=== PATIENT | male | born 1965 | race Caucasian/White ===

== ENCOUNTER 2019-08-13 18:34 | Emergency (ER) | payer MEDICARE, BC ==
--- NOTE | 2019-08-13 20:04 | CR ---
INDICATION: Chest pain TECHNIQUE: Chest radiograph 1 view COMPARISON: None FINDINGS: Mediastinum: The mediastinum is normal in appearance. Moderate cardiomegaly is present. Lung: Mild linear scarring or atelectasis is seen in the right lung base. No sign of pleural effusion seen. No pneumothorax is identified. Bone and Soft tissue: Unremarkable for age. IMPRESSIONS: 1. Mild linear scarring or atelectasis is seen in the right lung base. 2. Moderate cardiomegaly is present. Dictated by Lance Acosta MD @ 08/13/2019 8:02:57 PM Dictated by: Lance Acosta MD @ 08/13/2019 20:03:09 (Electronically Signed)
[2019-08-13 20:19] LABS: CARBON DIOXIDE,CO2 29.2 mmol/L (21.0-32.0); POTASSIUM,K 4.5 mmol/L (3.5-5.1)
--- NOTE | 2019-08-13 21:25 | EDM.PDOC ---
ED HPI GENERAL MEDICAL PROBLEM - General Chief Complaint: Genitourinary Problem Stated Complaint: kidney infection Time Seen by Provider: 08/13/19 21:16 Source of Information: Reports: Patient History Limitations: Reports: No Limitations - History of Present Illness INITIAL COMMENTS - FREE TEXT/NARRATIVE: Patient presents with a history of not feeling well the patient has multiple histories of abdominal pain and renal issues. Patient recently has been on antibiotics for UTI Onset: Today Duration: Day(s):, Getting Worse Location: Reports: Abdomen Severity: Moderate Improves with: Reports: None Worsens with: Reports: None Associated Symptoms: Reports: No Other Symptoms headache Pain Score (Numeric/FACES): 4 - Related Data Allergies Allergy/AdvReac Type Severity Reaction Status Date / Time meperidine [From Demerol] Allergy Hypertensio Verified 08/13/19 18:59 n morphine Allergy Hypertensio Verified 08/13/19 18:59 n Home Meds: Home Meds Alpha Lipoic Acid 600 mg PO DAILY 08/13/19 [History] Aspirin [Ecotrin EC] 81 mg PO DAILY 08/13/19 [History] Carvedilol [Coreg] 25 mg PO BID 08/13/19 [History] Cinacalcet HCl 30 mg PO DAILY 08/13/19 [History] Docusate Sodium 100 mg PO DAILY 08/13/19 [History] Donepezil HCl 10 mg PO DAILY 08/13/19 [History] FLUoxetine HCl [Fluoxetine HCl] 40 mg PO DAILY 08/13/19 [History] Gabapentin [Neurontin] 200 mg PO BEDTIME 08/13/19 [History] Nitrofurantoin Macrocrystal [Nitrofurantoin] 100 mg PO BID 08/13/19 [History] Omeprazole 20 mg PO DAILY 08/13/19 [History] Vit B Cmplx 3/Fa/Vit C/Biotin [Nilda-Anne Rx Tablet] 1 each PO DAILY 08/13/19 [ History] Zolpidem Tartrate 10 mg PO BEDTIME PRN 08/13/19 [History] amLODIPine Besylate [Norvasc] 10 mg PO BEDTIME 08/13/19 [History] atorvaSTATin [Lipitor] 40 mg PO BEDTIME 08/13/19 [History] hydrALAZINE [Apresoline] 25 mg PO TID 08/13/19 [History] rOPINIRole [Requip] 0.5 mg PO BEDTIME 08/13/19 [History] traMADol [Ultram] 50 mg PO BID 08/13/19 [History] Past Medical History Cardiovascular History: Reports: High Cholesterol, Hypertension Other Cardiovascular History: ventricular septal defect Respiratory History: Reports: Bronchitis, Recurrent, Pneumonia, Recurrent Gastrointestinal History: Reports: GERD, Pancreatitis Genitourinary History: Reports: Renal Calculus, Other (See Below) Other Genitourinary History: end stage renal failure Neurological History: Reports: Neuropathy, Diabetic Endocrine/Metabolic History: Reports: Diabetes, Type II Other Endocrine/Metabolic History: insulin dependent - Infectious Disease History Infectious Disease History: Reports: Chicken Pox, Measles - Past Surgical History HEENT Surgical History: Reports: Adenoidectomy, Eye Surgery GI Surgical History: Reports: Cholecystectomy, Colonoscopy, EGD Social & Family History - Family History Family Medical History: Noncontributory - Tobacco Use Smoking Status *Q: Never Smoker - Caffeine Use Caffeine Use: Reports: Energy Drinks, Soda - Recreational Drug Use Recreational Drug Use: No ED ROS GENERAL - Review of Systems Review Of Systems: See Below Constitutional: Reports: Malaise HEENT: Reports: No Symptoms Respiratory: Reports: No Symptoms Cardiovascular: Reports: No Symptoms Endocrine: Reports: No Symptoms GI/Abdominal: Reports: Abdominal Pain (Has history of chronic abdominal pain) : Reports: No Symptoms, Flank Pain. Denies: Discharge, Dysuria Musculoskeletal: Reports: No Symptoms Skin: Reports: No Symptoms Neurological: Reports: No Symptoms Psychiatric: Reports: No Symptoms Hematologic/Lymphatic: Reports: No Symptoms Immunologic: Reports: No Symptoms ED EXAM, GI/ABD - Physical Exam Exam: See Below Text/Narrative:: Exam consist of right flank pain. Patient has no evidence of guarding or rigidity. Exam Limited By: No Limitations General Appearance: Alert, WD/WN, No Apparent Distress Eyes: Bilateral: Normal Appearance Ears: Normal External Exam, Normal Canal, Hearing Grossly Normal, Normal TMs Nose: Normal Inspection Throat/Mouth: Normal Inspection, Normal Lips Head: Atraumatic, Normocephalic Neck: Normal Inspection Respiratory/Chest: No Respiratory Distress, Lungs Clear, No Accessory Muscle Use Cardiovascular: Normal Peripheral Pulses, Regular Rate, Rhythm, No JVD, No Murmur (Male) Exam: Deferred Rectal (Males) Exam: Deferred Back Exam: Normal Inspection Extremities: Normal Inspection, Normal Range of Motion Neurological: Alert, Oriented, CN II-XII Intact, Normal Cognition, Normal Reflexes, No Motor/Sensory Deficits Psychiatric: Normal Affect, Normal Mood Skin Exam: Warm, Dry, Intact, Normal Color, No Rash Course - Vital Signs Text/Narrative:: 54-year-old male was evaluated in emergency room for right flank pain. Patient does not have a urinary tract infection. Patient's labs are normal. Patient is a dialysis patient with a normal potassium. Discharged home to follow with primary care physician Last Recorded V/S: Last Vital Signs Temp 97.8 F 08/13/19 18:59 Pulse 84 08/13/19 18:59 Resp 18 08/13/19 18:59 BP 99/78 08/13/19 18:59 Pulse Ox 97 08/13/19 18:59 - Orders/Labs/Meds Labs: Laboratory Tests 08/13/19 08/13/19 08/13/19 Range/Units 19:38 19:47 19:47 WBC 3.24 L (4.0-11.0) K/uL RBC 2.70 L (4.50-5.90) M/uL Hgb 8.9 L (13.0-17.0) g/dL Hct 27.7 L (38.0-50.0) % MCV 102.6 H (80.0-98.0) fL MCH 33.0 H (27.0-32.0) pg MCHC 32.1 (31.0-37.0) g/dL RDW Std Deviation 55.4 (28.0-62.0) fl RDW Coeff of Braulio 15 (11.0-15.0) % Plt Count 83 L (150-400) K/uL MPV 9.80 (7.40-12.00) fL Add Manual Diff YES Neutrophils % (Manual) 74 (48.0-80.0) % Lymphocytes % (Manual) 15 L (16.0-40.0) % Monocytes % (Manual) 10 (0.0-15.0) % Eosinophils % (Manual) 1 (0.0-7.0) % Nucleated RBC % 0.0 /100WBC Absolute Seg Neuts 2.4 (1.4-5.7) Lymphocytes # (Manual) 0.5 L (0.6-2.4) Monocytes # (Manual) 0.3 (0.0-0.8) Eosinophils # (Manual) 0.0 (0.0-0.7) Nucleated RBCs # 0 K/uL Sodium 136 (136-148) mmol/L Potassium 4.5 (3.5-5.1) mmol/L Chloride 94 L (98-107) mmol/L Carbon Dioxide 29.2 (21.0-32.0) mmol/L BUN 62 H (7.0-18.0) mg/dL Creatinine 7.3 H (0.8-1.3) mg/dL Est Cr Clr Drug Dosing 12.08 mL/min Estimated GFR (MDRD) 7.9 ml/min Glucose 136 H (74-106) mg/dL Calcium 8.1 L (8.5-10.1) mg/dL Total Bilirubin 1.5 H (0.2-1.0) mg/dL AST 18 (15-37) IU/L ALT 20 (14-63) IU/L Alkaline Phosphatase 114 (46-116) U/L Total Protein 7.2 (6.4-8.2) g/dL Albumin 3.5 (3.4-5.0) g/dL Globulin 3.7 (2.6-4.0) g/dL Albumin/Globulin Ratio 0.9 (0.9-1.6) Urine Color DARK YELLOW Urine Appearance CLOUDY Urine pH 5.0 (5.0-8.0) Ur Specific [place] >= 1.030 (1.001-1.035) Urine Protein 100 H (NEGATIVE) mg/dL Urine Glucose (UA) NEGATIVE (NEGATIVE) mg/dL Urine Ketones TRACE H (NEGATIVE) mg/dL Urine Occult Blood LARGE H (NEGATIVE) Urine Nitrite NEGATIVE (NEGATIVE) Urine Bilirubin MODERATE H (NEGATIVE) Urine Ictotest NEGATIVE Urine Urobilinogen 0.2 (<2.0) EU/dL Ur Leukocyte Esterase MODERATE H (NEGATIVE) Departure - Departure Time of Disposition: 21:24 Disposition: Home, Self-Care 01 Clinical Impression: Abdominal pain - Discharge Information Instructions: Abdominal Pain, Adult Referrals: Vincent Carcamo MD [Primary Care Provider] - Forms: ED Department Discharge Additional Instructions: The following information is given to patients seen in the emergency department who are being discharged to home. This information is to outline your options for follow-up care. We provide all patients seen in our emergency department with a follow-up referral. The need for follow-up, as well as the timing and circumstances, are variable depending upon the specifics of your emergency department visit. If you don't have a primary care physician on staff, we will provide you with a referral. We always advise you to contact your personal physician following an emergency department visit to inform them of the circumstance of the visit and for follow-up with them and/or the need for any referrals to a consulting specialist. The emergency department will also refer you to a specialist when appropriate. This referral assures that you have the opportunity for follow-up care with a specialist. All of these measure are taken in an effort to provide you with optimal care, which includes your follow-up. Under all circumstances we always encourage you to contact your private physician who remains a resource for coordinating your care. When calling for follow-up care, please make the office aware that this follow-up is from your recent emergency room visit. If for any reason you are refused follow-up, please contact the [facility] Emergency Department at and asked to speak to the emergency department charge nurse. [facility] [address] [place] [address] [address] Care Plan Goals: He is to follow-up with his primary care physician. Patient to take current medication as prescribed Sepsis Event Note - Evaluation Sepsis Screening Result: No Definite Risk - Focused Exam Vital Signs: Vital Signs Temp Pulse Resp BP Pulse Ox 08/13/19 18:59 97.8 F 84 18 99/78 97 Date Exam was Performed: 08/13/19 Time Exam was Performed: 21:20
== END 2019-08-13 21:30 | disposition home or self-care (01) ==
LOC: MW.ED 18:34
DX: R10.9 Unspecified abdominal pain (principal); I12.0 Hypertensive chronic kidney disease with stage 5 chronic kidney disease or end stage renal disease; E11.22 Type 2 diabetes mellitus with diabetic chronic kidney disease; N18.6 End stage renal disease; E78.00 Pure hypercholesterolemia, unspecified; K21.9 Gastro-esophageal reflux disease without esophagitis; E11.40 Type 2 diabetes mellitus with diabetic neuropathy, unspecified; Z90.49 Acquired absence of other specified parts of digestive tract; Z79.82 Long term (current) use of aspirin; Z79.899 Other long term (current) drug therapy; Z88.5 Allergy status to narcotic agent; Z88.8 Allergy status to other drugs, medicaments and biological substances
CPT/HCPCS: 36415; 71045; 71045-26; 80053; 81003; 85025; 99283; 99284

== ENCOUNTER 2019-08-26 10:31 | Observation (INO) | payer MEDICARE, BC ==
[2019-08-26] MEDS ORDERED: Sodium Chloride 0.9% 10 ML Syringe FLUSH PRN (10:33)
[2019-08-26] MEDS ORDERED: Sodium Chloride 0.9% 2.5 ML Syringe FLUSH PRN (10:33)
[2019-08-26] MEDS ORDERED: Aspirin 81 MG Tab.Chew PO ONE (10:43)
[2019-08-26] MEDS: Nitroglycerin 0.4 MG Tab.SL SL PRN ×2 (10:56→11:01)
--- NOTE | 2019-08-26 10:57 | EDM.PDOC ---
ED HPI GENERAL MEDICAL PROBLEM - General Chief Complaint: Chest Pain Stated Complaint: CHEST PAIN AND VOMITTING Time Seen by Provider: 08/26/19 10:33 Source of Information: Reports: Patient History Limitations: Reports: No Limitations - History of Present Illness INITIAL COMMENTS - FREE TEXT/NARRATIVE: HISTORY AND PHYSICAL: History of present illness: Patient is a 54-year-old male who presents to the ED today with concern of chest pain that started when patient was receiving dialysis. Patient states the chest pain is currently a 5 out of 10 but that it was worse during dialysis. Patient states he has a history of diabetes, high blood pressure, high cholesterol, end-stage renal disease, gastroparesis, and chronic pancreatitis. Patient states that he was told he was unable to receive a renal transplant because he also would need a coronary artery bypass but states he has not had a heart attack or chest pain in the past. Patient states the chest pain is in the center of his chest and radiates to his right shoulder and makes him feel nauseous and he did have some episodes of vomiting during dialysis. Patient states he was given Zofran in dialysis and sent over to the ED. Patient states he did have similar pain in the past when he had acute exacerbations of pancreatitis. Patient denies any other symptoms or concerns. Patient states he has not taken any aspirin today. Patient denies fever, chills, shortness of breath, or cough. Denies headache, neck stiff ness, change in vision, syncope, or near syncope. Denies abdominal pain, diarrhea, constipation, or dysuria. Has not noted any blood in urine or stool. Review of systems: As per history of present illness and below otherwise all systems reviewed and negative. Past medical history: As per history of present illness and as reviewed below otherwise noncontributory. Surgical history: As per history of present illness and as reviewed below otherwise noncontributory. Social history: See social history for further information Family history: As per history of present illness and as reviewed below otherwise noncontributory. Physical exam: General: Patient is alert, oriented, and in no acute distress. Patient laying comfortably on exam table. HEENT: Atraumatic, normocephalic, pupils equal and reactive bilaterally, negative for conjunctival pallor or scleral icterus, mucous membranes moist, TMs normal bilaterally, throat clear, neck supple, nontender, trachea midline. No drooling or trismus noted. No meningeal signs. No hot potato voice noted. Lungs: Clear to auscultation, breath sounds equal bilaterally, chest nontender. Heart: S1S2, regular rate and rhythm without overt murmur Abdomen: PEG tube in place without drainage or erythema. Soft, nondistended, nontender. Negative for masses or hepatosplenomegaly. Negative for costovertebral tenderness. Pelvis: Stable nontender. Genitourinary: Deferred. Rectal: Deferred. Skin: Intact, warm, dry. No lesions or rashes noted. Extremities: Atraumatic, negative for cords or calf pain. Neurovascular unremarkable. Neuro: Awake, alert, oriented. Cranial nerves II through XII unremarkable. Cerebellum unremarkable. Motor and sensory unremarkable throughout. Exam nonfocal. Notes: Patient does express resolution of his chest pain after nitro was given. Dr. Gloria consulted on patient and will admit to observation with telemetry. Voices understanding and is agreeable to plan of care. Denies any further questions or concerns at this time. Diagnostics: EKG, CBC, CMP, UA, Trop, Lipase, CXR, BNP Therapeutics: ASA, Nitro x 3 Impression: Chest pain r/o ACS Plan: Admit to observation to Dr. Gloria on telemetry Definitive disposition and diagnosis as appropriate pending reevaluation and review of above. Left Chest Pain Score (Numeric/FACES): 5 - Related Data Allergies Allergy/AdvReac Type Severity Reaction Status Date / Time meperidine [From Demerol] Allergy Hypertensio Verified 08/13/19 18:59 n morphine Allergy Hypertensio Verified 08/13/19 18:59 n Home Meds: Home Meds Alpha Lipoic Acid 600 mg PO DAILY 08/13/19 [History] Aspirin [Ecotrin EC] 81 mg PO DAILY 08/13/19 [History] Carvedilol [Coreg] 25 mg PO BID 08/13/19 [History] Cinacalcet HCl 30 mg PO DAILY 08/13/19 [History] Docusate Sodium 100 mg PO DAILY 08/13/19 [History] Donepezil HCl 10 mg PO DAILY 08/13/19 [History] FLUoxetine HCl [Fluoxetine HCl] 40 mg PO DAILY 08/13/19 [History] Gabapentin [Neurontin] 200 mg PO BEDTIME 08/13/19 [History] Nitrofurantoin Macrocrystal [Nitrofurantoin] 100 mg PO BID 08/13/19 [History] Omeprazole 20 mg PO DAILY 08/13/19 [History] Vit B Cmplx 3/Fa/Vit C/Biotin [Nilda-Anne Rx Tablet] 1 each PO DAILY 08/13/19 [ History] Zolpidem Tartrate 10 mg PO BEDTIME PRN 08/13/19 [History] amLODIPine Besylate [Norvasc] 10 mg PO BEDTIME 08/13/19 [History] atorvaSTATin [Lipitor] 40 mg PO BEDTIME 08/13/19 [History] hydrALAZINE [Apresoline] 25 mg PO TID 08/13/19 [History] rOPINIRole [Requip] 0.5 mg PO BEDTIME 08/13/19 [History] traMADol [Ultram] 50 mg PO BID 08/13/19 [History] Past Medical History Cardiovascular History: Reports: High Cholesterol, Hypertension Other Cardiovascular History: ventricular septal defect Respiratory History: Reports: Bronchitis, Recurrent, Pneumonia, Recurrent Gastrointestinal History: Reports: GERD, Pancreatitis Genitourinary History: Reports: Renal Calculus, Other (See Below) Other Genitourinary History: end stage renal failure Neurological History: Reports: Neuropathy, Diabetic Endocrine/Metabolic History: Reports: Diabetes, Type II Other Endocrine/Metabolic History: insulin dependent - Infectious Disease History Infectious Disease History: Reports: Chicken Pox, Measles - Past Surgical History HEENT Surgical History: Reports: Adenoidectomy, Eye Surgery GI Surgical History: Reports: Cholecystectomy, Colonoscopy, EGD Social & Family History - Family History Family Medical History: Noncontributory - Tobacco Use Smoking Status *Q: Never Smoker Second Hand Smoke Exposure: No - Caffeine Use Caffeine Use: Reports: Coffee - Recreational Drug Use Recreational Drug Use: No ED ROS GENERAL - Review of Systems Review Of Systems: Comprehensive ROS is negative, except as noted in HPI. ED EXAM, GENERAL - Physical Exam Exam: See Below (see dictation) Course - Vital Signs Last Recorded V/S: Last Vital Signs Temp 97.3 F 08/26/19 10:42 Pulse 84 08/26/19 11:10 Resp 18 08/26/19 11:10 BP 145/76 H 08/26/19 11:10 Pulse Ox 100 08/26/19 11:10 - Orders/Labs/Meds Orders: Active Orders 24 hr Category Date Time Status Admission Status [Patient Status] [ADT] Stat ADT 08/26/19 11:41 Ordered EKG Documentation Completion [RC] STAT Care 08/26/19 10:33 Active B-TYPE NATRIURETIC PEPTIDE,BNP [CHEM] Stat Lab 08/26/19 10:45 Received UA RFX MATTHEW AND CULT IF INDIC [URIN] Stat Lab 08/26/19 10:33 Ordered Nitroglycerin [Nitrostat] Med 08/26/19 10:44 Active 0.4 mg SL Q5M PRN Sodium Chloride 0.9% [Saline Flush] Med 08/26/19 10:33 Active 10 ml FLUSH ASDIRECTED PRN Sodium Chloride 0.9% [Saline Flush] Med 08/26/19 10:33 Active 2.5 ml FLUSH ASDIRECTED PRN Saline Lock Insert [OM.PC] Stat Oth 08/26/19 10:33 Ordered Medication Orders Nitroglycerin (Nitrostat) 0.4 mg SL Q5M PRN PRN Reason: Chest Pain Last Admin: 08/26/19 11:01 Dose: 0.4 mg Admin: 08/26/19 10:56 Dose: 0.4 mg Sodium Chloride (Saline Flush) 10 ml FLUSH ASDIRECTED PRN PRN Reason: Keep Vein Open Last Admin: 08/26/19 10:58 Dose: 10 ml Sodium Chloride (Saline Flush) 2.5 ml FLUSH ASDIRECTED PRN PRN Reason: Keep Vein Open Last Admin: 08/26/19 10:58 Dose: 2.5 ml Labs: Laboratory Tests 08/26/19 08/26/19 Range/Units 10:45 10:45 WBC 2.20 L (4.0-11.0) K/uL RBC 2.96 L (4.50-5.90) M/uL Hgb 9.7 L (13.0-17.0) g/dL Hct 30.9 L (38.0-50.0) % MCV 104.4 H (80.0-98.0) fL MCH 32.8 H (27.0-32.0) pg MCHC 31.4 (31.0-37.0) g/dL RDW Std Deviation 58.6 (28.0-62.0) fl RDW Coeff of Braulio 16 H (11.0-15.0) % Plt Count 106 L (150-400) K/uL MPV 10.10 (7.40-12.00) fL Neut % (Auto) 75.0 (48.0-80.0) % Lymph % (Auto) 14.1 L (16.0-40.0) % Garrett % (Auto) 9.5 (0.0-15.0) % Eos % (Auto) 1.4 (0.0-7.0) % Baso % (Auto) 0.0 (0.0-1.5) % Neut # (Auto) 1.7 (1.4-5.7) K/uL Lymph # (Auto) 0.3 L (0.6-2.4) K/uL Garrett # (Auto) 0.2 (0.0-0.8) K/uL Eos # (Auto) 0.0 (0.0-0.7) K/uL Baso # (Auto) 0.0 (0.0-0.1) K/uL Nucleated RBC % 0.0 /100WBC Nucleated RBCs # 0 K/uL Sodium 139 (136-148) mmol/L Potassium 3.6 (3.5-5.1) mmol/L Chloride 96 L (98-107) mmol/L Carbon Dioxide 30.9 (21.0-32.0) mmol/L BUN 18 (7.0-18.0) mg/dL Creatinine 3.7 H (0.8-1.3) mg/dL Est Cr Clr Drug Dosing 23.84 mL/min Estimated GFR (MDRD) 17.3 ml/min Glucose 224 H (74-106) mg/dL Calcium 9.1 (8.5-10.1) mg/dL Total Bilirubin 1.4 H (0.2-1.0) mg/dL AST 22 (15-37) IU/L ALT 23 (14-63) IU/L Alkaline Phosphatase 133 H (46-116) U/L Troponin I < 0.050 (0.000-0.056) ng/mL Total Protein 7.3 (6.4-8.2) g/dL Albumin 3.7 (3.4-5.0) g/dL Globulin 3.6 (2.6-4.0) g/dL Albumin/Globulin Ratio 1.0 (0.9-1.6) Lipase 116 (73-393) U/L Meds: Medications Generic Name Dose Route Start Last Admin Trade Name Freakin PRN Reason Stop Dose Admin Nitroglycerin 0.4 mg 08/26/19 10:44 08/26/19 11:01 Nitrostat SL 0.4 mg Q5M PRN Administration Chest Pain Sodium Chloride 10 ml 08/26/19 10:33 08/26/19 10:58 Saline Flush FLUSH 10 ml ASDIRECTED PRN Administration Keep Vein Open Sodium Chloride 2.5 ml 08/26/19 10:33 08/26/19 10:58 Saline Flush FLUSH 2.5 ml ASDIRECTED PRN Administration Keep Vein Open Discontinued Medications Generic Name Dose Route Start Last Admin Trade Name Lacy PRN Reason Stop Dose Admin Aspirin 324 mg 08/26/19 10:43 08/26/19 10:56 Aspirin PO 08/26/19 10:44 324 mg ONETIME ONE Administration Departure - Departure Time of Disposition: 11:44 Disposition: Refer to Observation Clinical Impression: Chest pain Qualifiers: Chest pain type: unspecified Qualified Code(s): R07.9 - Chest pain, unspecified - Discharge Information Referrals: PCP,None [Primary Care Provider] - Forms: ED Department Discharge Sepsis Event Note - Evaluation Sepsis Screening Result: No Definite Risk - Focused Exam Vital Signs: Vital Signs Temp Pulse Resp BP BP Pulse Ox 08/26/19 11:10 84 18 145/76 H 100 08/26/19 11:01 143/76 H 08/26/19 10:57 176/95 H 08/26/19 10:42 97.3 F 87 20 174/95 H 100 Date Exam was Performed: 08/26/19 Time Exam was Performed: 11:42 - My Orders Last 24 Hours: My Active Orders 08/26/19 10:33 EKG Documentation Completion [RC] STAT UA RFX MATTHEW AND CULT IF INDIC [URIN] Stat Sodium Chloride 0.9% [Saline Flush] 10 ml FLUSH ASDIRECTED PRN Sodium Chloride 0.9% [Saline Flush] 2.5 ml FLUSH ASDIRECTED PRN Saline Lock Insert [OM.PC] Stat 08/26/19 10:44 Nitroglycerin [Nitrostat] 0.4 mg SL Q5M PRN 08/26/19 10:45 B-TYPE NATRIURETIC PEPTIDE,BNP [CHEM] Stat 08/26/19 11:41 Admission Status [Patient Status] [ADT] Stat - Assessment/Plan Last 24 Hours: My Active Orders 08/26/19 10:33 EKG Documentation Completion [RC] STAT UA RFX MATTHEW AND CULT IF INDIC [URIN] Stat Sodium Chloride 0.9% [Saline Flush] 10 ml FLUSH ASDIRECTED PRN Sodium Chloride 0.9% [Saline Flush] 2.5 ml FLUSH ASDIRECTED PRN Saline Lock Insert [OM.PC] Stat 08/26/19 10:44 Nitroglycerin [Nitrostat] 0.4 mg SL Q5M PRN 08/26/19 10:45 B-TYPE NATRIURETIC PEPTIDE,BNP [CHEM] Stat 08/26/19 11:41 Admission Status [Patient Status] [ADT] Stat
--- NOTE | 2019-08-26 11:13 | CR ---
Chest: Portable view of the chest was obtained. Comparison: No prior chest imaging is available. Heart is enlarged. Linear atelectasis or scarring is seen within the right lung base. Lungs otherwise are clear with no acute parenchymal change. Bony structures are grossly intact. Impression: 1. Cardiomegaly. 2. Atelectasis or scarring within the right lung base. 3. Nothing acute is otherwise seen. Diagnostic code #2 This report was dictated in MDT
[2019-08-26 11:24] LABS: BLOOD UREA NITROGEN,BUN 18 mg/dL (7.0-18.0); CARBON DIOXIDE,CO2 30.9 mmol/L (21.0-32.0); CHLORIDE,CL 96 mmol/L (98-107); GLUCOSE RANDOM 224 mg/dL (74-106); LIPASE 116 U/L (73-393); POTASSIUM,K 3.6 mmol/L (3.5-5.1); SODIUM,NA 139 mmol/L (136-148)
--- NOTE | 2019-08-26 13:05 | PCM.HP.2 ---
H&P History of Present Illness - General Date of Service: 08/26/19 Admit Problem/Dx: Admission Diagnosis/Problem Admission Diagnosis/Problem Chest pain Source of Information: Patient History Limitations: Reports: No Limitations - History of Present Illness Initial Comments - Free Text/Narative: This 54 year old male with significant pmh of ESRD on HD, DM type 2, severe gastroparesis with jejunostomy tube, chronic pancreatitis, pancytopenia, CAD and ventricular septal defect presented to the ED from dialysis with complaints of chest pain. He reports he was started on dialysis this morning, he felt some R shoulder pain which went into his chest all over. he felt chilled and then nauseated. They gave him Zofran which helped, and then he slept for about 30 minutes and then woke up with extreme nausea and vomited. He vomited a total of 3 times. He reports he eats approximately 400-500 calories orally daily and the rest through J tube due to severe gastroparesis. He denies this feels like his pancreatitis pain. He reports his J tube has been draining excessively the last week or so, like acidic fluid and thinks it might need to be replaced. He reports BMs and flatus. He was recently treated with abx for UTI, voided very little, which is his normal. He denies overt abdominal pain. No chest pain currently, just normal aches and pains. He is tired from dialysis today and just wants to rest. He denies fevers or cough at home. No headache or shortness of breath. No focal neurologic deficits. No smoking or tobacco use, no alcohol or recreational drug use. He was evaluated for renal transplant, but was denied as he needs CABG for CAD, but they felt even after that he might not be a good candidate for transplant. Next HD is Thursday. In the ED pancytopenia is noted, which is at baseline. Na 139, K+ 3.6, BUN 18 and Cr 3.7. CXR reveals cardiomegaly, no acute cardiopulmonary process. EKG SR with LBBB, no ST elevation. Troponin negative. He was given Nitro x 2 and pain subsided. ED recommended admission for chest pain rule out ACS. PCP, Dr Carcamo. Left Chest Pain Score (Numeric/FACES): 5 - Related Data Allergies/Adverse Reactions: Allergies Allergy/AdvReac Type Severity Reaction Status Date / Time meperidine [From Demerol] Allergy Hypertensio Verified 08/26/19 12:56 n morphine Allergy Hypertensio Verified 08/26/19 12:56 n Home Medications: Home Meds Carvedilol [Coreg] 25 mg PO BID 08/13/19 [History] Docusate Sodium 100 mg PO BID 08/13/19 [History] Donepezil HCl 10 mg PO DAILY 08/13/19 [History] FLUoxetine HCl [Fluoxetine HCl] 40 mg PO DAILY 08/13/19 [History] Gabapentin [Neurontin] 200 mg PO DAILY 08/13/19 [History] Vit B Cmplx 3/Fa/Vit C/Biotin [Nilda-Anne Rx Tablet] 1 each PO DAILY 08/13/19 [ History] Zolpidem Tartrate 10 mg PO BEDTIME PRN 08/13/19 [History] amLODIPine Besylate [Norvasc] 10 mg PO DAILY 08/13/19 [History] atorvaSTATin [Lipitor] 40 mg PO BEDTIME 08/13/19 [History] hydrALAZINE [Apresoline] 25 mg PO TID 08/13/19 [History] rOPINIRole [Requip] 0.5 mg PO DAILY 08/13/19 [History] traMADol [Ultram] 50 - 100 mg PO TID PRN 08/13/19 [History] Acetaminophen [Tylenol] 325 mg PO ASDIRECTED PRN MDD THREE TIMES A WEEK [History] Calcium Carbonate [Tums] 1,500 mg PO BID 08/26/19 [History] Cinacalcet [Sensipar] 30 mg PO DAILY 08/26/19 [History] Darbepoetin Chema [Aranesp] 100 mcg IV ASDIRECTED MDD EACH Thursday08/26/19 [ History] Esomeprazole Magnesium [Nexium] 20 mg PO DAILY 08/26/19 [History] Furosemide [Lasix] 80 mg PO BID 08/26/19 [History] Insulin NPH Human Isophane [Novolin N Flexpen] 50 unit SQ BID 08/26/19 [History] Insulin Regular, Human [Novolin R Flexpen] 15 unit SQ DAILY PRN 08/26/19 [ History] Meclizine [Antivert] 25 mg PO BID 08/26/19 [History] Nitroglycerin 0.4 mg SL ASDIRECTED PRN 08/26/19 [History] Ondansetron [Zofran] 4 mg IV ASDIRECTED PRN MDD THREE TIMES A WEEK 08/26/19 [ History] Sevelamer Carbonate [Renvela] 800 mg PO TID 08/26/19 [History] paricalcitoL [Paricalcitol] 6 mcg IV ASDIRECTED MDD THREE TIMES A WEEK 08/26/19 [History] Past Medical History Cardiovascular History: Reports: CAD, Congenital Septal Defect (ventricular septal defect), High Cholesterol, Hypertension, Other (See Below) (Cardiomegaly) . Denies: Afib, [place], Stents Respiratory History: Reports: Bronchitis, Recurrent, Pneumonia, Recurrent Gastrointestinal History: Reports: GERD, Pancreatitis, Other (See Below) ( gastroparesis) Genitourinary History: Reports: Renal Calculus, Other (See Below) Other Genitourinary History: end stage renal failure on HD Musculoskeletal History: Reports: Arthritis Neurological History: Reports: Migraines, Neuropathy, Diabetic, Other (See Below ) Other Neuro History: mild cognitive impairment, vascular dementia, restless leg syndrome Psychiatric History: Reports: Anxiety, Depression Endocrine/Metabolic History: Reports: Diabetes, Type II Other Endocrine/Metabolic History: insulin dependent - Infectious Disease History Infectious Disease History: Reports: Chicken Pox, Measles - Past Surgical History HEENT Surgical History: Reports: Adenoidectomy, Eye Surgery GI Surgical History: Reports: Cholecystectomy, Colonoscopy, EGD Social & Family History - Family History Family Medical History: Noncontributory - Tobacco Use Smoking Status *Q: Never Smoker Second Hand Smoke Exposure: No - Caffeine Use Caffeine Use: Reports: Coffee - Alcohol Use Alcohol Use History: No - Recreational Drug Use Recreational Drug Use: No - Living Situation & Occupation Living situation: Reports: Occupation: Disabled H&P Review of Systems - Review of Systems: Review Of Systems: See Below General: Reports: No Symptoms. Denies: Fever, Chills, Malaise Pulmonary: Reports: No Symptoms. Denies: Shortness of Breath Cardiovascular: Reports: No Symptoms. Denies: Chest Pain Gastrointestinal: Reports: Abdominal Pain, Nausea. Denies: Black Stool, Bloody Stool, Vomiting Genitourinary: Reports: No Symptoms. Denies: Dysuria, Frequency, Burning Musculoskeletal: Reports: No Symptoms Skin: Reports: Erythema (around J tube due to drainage) Psychiatric: Reports: No Symptoms Neurological: Reports: No Symptoms Hematologic/Lymphatic: Reports: No Symptoms Immunologic: Reports: No Symptoms Exam - Exam Exam: See Below - Vital Signs Vital Signs: Last Vital Signs Temp 97.3 F 08/26/19 10:42 Pulse 84 08/26/19 11:55 Resp 18 08/26/19 11:55 BP 167/83 H 08/26/19 11:55 Pulse Ox 99 08/26/19 11:55 Weight: 98 kg - Exam General: Alert, Oriented, Cooperative Neck: Supple Lungs: Clear to Auscultation, Normal Respiratory Effort Cardiovascular: Regular Rate, Regular Rhythm, Other (fistula to FAISAL arm) GI/Abdominal Exam: Normal Bowel Sounds, Soft, Non-Tender, Other (J tube LLQ, with mild irritated skin surrounding.) Extremities: Normal Inspection, Normal Range of Motion, Non-Tender, No Pedal Edema Neuro Extensive - Mental Status: Alert, Oriented x3 Neuro Extensive - Motor, Sensory, Reflexes: CN II-XII Intact Psychiatric: Alert, Normal Affect, Normal Mood - Patient Data Lab Results Last 24 hrs: Laboratory Results - last 24 hr 08/26/19 08/26/19 08/26/19 Range/Units 10:45 10:45 10:45 WBC 2.20 L (4.0-11.0) K/uL RBC 2.96 L (4.50-5.90) M/uL Hgb 9.7 L (13.0-17.0) g/dL Hct 30.9 L (38.0-50.0) % MCV 104.4 H (80.0-98.0) fL MCH 32.8 H (27.0-32.0) pg MCHC 31.4 (31.0-37.0) g/dL RDW Std Deviation 58.6 (28.0-62.0) fl RDW Coeff of Braulio 16 H (11.0-15.0) % Plt Count 106 L (150-400) K/uL MPV 10.10 (7.40-12.00) fL Neut % (Auto) 75.0 (48.0-80.0) % Lymph % (Auto) 14.1 L (16.0-40.0) % [place] % (Auto) 9.5 (0.0-15.0) % Eos % (Auto) 1.4 (0.0-7.0) % Baso % (Auto) 0.0 (0.0-1.5) % Neut # (Auto) 1.7 (1.4-5.7) K/uL Lymph # (Auto) 0.3 L (0.6-2.4) K/uL [place] # (Auto) 0.2 (0.0-0.8) K/uL Eos # (Auto) 0.0 (0.0-0.7) K/uL Baso # (Auto) 0.0 (0.0-0.1) K/uL Nucleated RBC % 0.0 /100WBC Nucleated RBCs # 0 K/uL Sodium 139 (136-148) mmol/L Potassium 3.6 (3.5-5.1) mmol/L Chloride 96 L (98-107) mmol/L Carbon Dioxide 30.9 (21.0-32.0) mmol/L BUN 18 (7.0-18.0) mg/dL Creatinine 3.7 H (0.8-1.3) mg/dL Est Cr Clr Drug Dosing 23.84 mL/min Estimated GFR (MDRD) 17.3 ml/min Glucose 224 H (74-106) mg/dL Calcium 9.1 (8.5-10.1) mg/dL Total Bilirubin 1.4 H (0.2-1.0) mg/dL AST 22 (15-37) IU/L ALT 23 (14-63) IU/L Alkaline Phosphatase 133 H (46-116) U/L Troponin I < 0.050 (0.000-0.056) ng/mL B-Natriuretic Peptide 1485 H (<100) PG/ML Total Protein 7.3 (6.4-8.2) g/dL Albumin 3.7 (3.4-5.0) g/dL Globulin 3.6 (2.6-4.0) g/dL Albumin/Globulin Ratio 1.0 (0.9-1.6) Lipase 116 (73-393) U/L Result Diagrams: 08/26/19 10:45 08/26/19 10:45 EKG INTERPRETATION EKG Date: 08/26/19 Rhythm: NSR P-Wave: Present QRS: Normal ST-T: Normal QT: Normal Sepsis Event Note - Evaluation Sepsis Screening Result: No Definite Risk - Focused Exam Vital Signs: Vital Signs Temp Pulse Resp BP BP Pulse Ox 08/26/19 11:55 84 18 167/83 H 99 08/26/19 11:30 85 18 147/64 H 98 08/26/19 11:10 84 18 145/76 H 100 08/26/19 11:01 143/76 H 08/26/19 10:57 176/95 H 08/26/19 10:42 97.3 F 87 20 174/95 H 100 Date Exam was Performed: 08/26/19 Time Exam was Performed: 14:50 - Problem List (1) Chest pain SNOMED Code(s): 73924624 ICD Code: R07.9 - CHEST PAIN, UNSPECIFIED Status: Acute Current Visit: Yes Qualifiers: Chest pain type: unspecified Qualified Code(s): R07.9 - Chest pain, unspecified (2) Abdominal pain SNOMED Code(s): 57888564 ICD Code: R10.9 - UNSPECIFIED ABDOMINAL PAIN Status: Acute Current Visit : No (3) Nausea SNOMED Code(s): 567942689 ICD Code: R11.0 - NAUSEA Status: Acute Current Visit: Yes (4) HTN (hypertension) SNOMED Code(s): 45634047 ICD Code: I10 - ESSENTIAL (PRIMARY) HYPERTENSION Status: Chronic Current Visit: Yes (5) Gastroparesis due to secondary diabetes SNOMED Code(s): 9526383, 565546172 ICD Code: E13.43 - OTH DIABETES MELLITUS W DIABETIC AUTONOMIC (POLY) NEUROPATHY Status: Chronic Current Visit: Yes (6) Jejunostomy tube in situ SNOMED Code(s): 030177542, 245046269 ICD Code: Z93.4 - OTHER ARTIFICIAL OPENINGS OF GASTROINTESTINAL TRACT STATUS Status: Chronic Current Visit: Yes (7) HLD (hyperlipidemia) SNOMED Code(s): 16893354 ICD Code: E78.5 - HYPERLIPIDEMIA, UNSPECIFIED Status: Chronic Current Visit: Yes (8) Pancytopenia SNOMED Code(s): 757555595 ICD Code: D61.818 - OTHER PANCYTOPENIA Status: Chronic Current Visit: Yes (9) CAD (coronary artery disease) SNOMED Code(s): 80539215 ICD Code: I25.10 - ATHSCL HEART DISEASE OF [place] CORONARY ARTERY W/O ANG PCTRS Status: Chronic Current Visit: Yes (10) GERD (gastroesophageal reflux disease) SNOMED Code(s): 424250075 ICD Code: K21.9 - GASTRO-ESOPHAGEAL REFLUX DISEASE WITHOUT ESOPHAGITIS Status: Chronic Current Visit: Yes (11) ESRD on hemodialysis SNOMED Code(s): 121110148 ICD Code: N18.6 - END STAGE RENAL DISEASE; Z99.2 - DEPENDENCE ON RENAL DIALYSIS Status: Chronic Current Visit: Yes (12) Mild cognitive impairment SNOMED Code(s): 178601680 ICD Code: G31.84 - MILD COGNITIVE IMPAIRMENT, SO STATED Status: Chronic Current Visit: Yes (13) Vascular dementia SNOMED Code(s): 846501404 ICD Code: F01.50 - VASCULAR DEMENTIA WITHOUT BEHAVIORAL DISTURBANCE Status : Chronic Current Visit: Yes (14) Chronic pancreatitis SNOMED Code(s): 151852132 ICD Code: K86.1 - OTHER CHRONIC PANCREATITIS Status: Chronic Current Visit: Yes Qualifiers: Pancreatitis type: biliary Qualified Code(s): K86.1 - Other chronic pancreatitis Problem List Initiated/Reviewed/Updated: Yes Orders Last 24hrs: Active Orders 24 hr Category Date Time Status Admission Status [Patient Status] [ADT] Stat ADT 08/26/19 11:41 Active EKG Documentation Completion [RC] STAT Care 08/26/19 10:33 Active UA RFX MATTHEW AND CULT IF INDIC [URIN] Stat Lab 08/26/19 10:33 Ordered Nitroglycerin [Nitrostat] Med 08/26/19 10:44 Active 0.4 mg SL Q5M PRN Sodium Chloride 0.9% [Saline Flush] Med 08/26/19 10:33 Active 10 ml FLUSH ASDIRECTED PRN Sodium Chloride 0.9% [Saline Flush] Med 08/26/19 10:33 Active 2.5 ml FLUSH ASDIRECTED PRN Saline Lock Insert [OM.PC] Stat Oth 08/26/19 10:33 Ordered Medication Orders Nitroglycerin (Nitrostat) 0.4 mg SL Q5M PRN PRN Reason: Chest Pain Last Admin: 08/26/19 11:01 Dose: 0.4 mg Admin: 08/26/19 10:56 Dose: 0.4 mg Sodium Chloride (Saline Flush) 10 ml FLUSH ASDIRECTED PRN PRN Reason: Keep Vein Open Last Admin: 08/26/19 10:58 Dose: 10 ml Sodium Chloride (Saline Flush) 2.5 ml FLUSH ASDIRECTED PRN PRN Reason: Keep Vein Open Last Admin: 08/26/19 10:58 Dose: 2.5 ml Assessment/Plan Comment:: This 54 year old male admitted with chest pain and nausea 1. Chest pain: - Monitor on Telemetry - Trend Troponins q6h x 2 2. Nausea - Protonix 40 mg IV - NPO for now - Zofran - Abd xray to rule out obstruction - Consider exacerbation of gastroparesis. 3. DM Type 2 - Monitor BS TID AC - Continue Insulin, monitor close with enteral feedings cut back 4. Gastroparesis/j tube - Half enteral feedings for tonight due to nausea and possible exacerbation for exacerbation. Monitor. - Consult [employer] to assist with tube feedings. 5. Chronic medical conditions: HTN, HLD, chronic pancreatitis, ESRD - Continue home medications. - monitor fluid status VTE prophylaxis: SCDs, pancytopenia noted, no pharmacologic management now Dispo: In am if improvement. - Mortality Measure Prognosis:: Good
[2019-08-26] MEDS ORDERED: Ondansetron 4 MG/2 ML SDV IVPUSH PRN (13:06)
[2019-08-26] MEDS: Pantoprazole 40 MG in Sodium Chloride 0.9% 10 ML IV SCH (13:36)
--- NOTE | 2019-08-26 14:10 | CR ---
Abdomen: Supine and upright views of the abdomen were obtained. Embolization coils are seen within the left upper abdomen. Surgical clips are seen within the upper right abdomen. Bowel gas pattern appears normal. No free air is seen. Bony structures appear within normal limits for the patient's age. Areas of atelectasis and probable scarring are seen within both lung bases. More focal area of density is seen within the left retrocardiac region and difficult to exclude small area of focal bronchitis or pneumonia. Impression: 1. Focal density within the left retrocardiac region is noted. Difficult to exclude focal bronchitis or pneumonia. 2. Other findings as noted above. Nothing acute is is otherwise appreciated. Diagnostic code #3 Study was dictated in MDT
[2019-08-26] MEDS ORDERED: Acetaminophen 325 MG Tab PO PRN (14:26)
[2019-08-26] MEDS ORDERED: traMADol 50 MG Tab PO PRN (14:26)
[2019-08-26] MEDS ORDERED: Zolpidem Tartrate 10 MG PO PRN (14:26)
[2019-08-26] MEDS ORDERED: Heparin Sodium 5,000 Units/ML Vial IVPUSH ONE (18:15)
[2019-08-26] MEDS ORDERED: Heparin Sod,Pork In 0.45% Nacl 25,000 UNIT/500 ML IV.SOLN IV SCH ×2 (18:30→19:45)
[2019-08-26] MEDS: Heparin Sod,Pork In 0.45% Nacl 25,000 UNIT/500 ML IV.SOLN IV SCH (20:03)
[2019-08-26] MEDS ORDERED: Insulin Isophane NPH, Human 100 Units/ML 10 ML Vial SUBCUT SCH (21:00)
[2019-08-26] MEDS: Carvedilol 25 MG Tab PO SCH (21:20)
[2019-08-26] MEDS: hydrALAZINE 25 MG Tab PO SCH (21:25)
[2019-08-26] MEDS: Sevelamer Carbonate 800 MG Tab PO SCH (21:25)
[2019-08-26] MEDS: atorvaSTATin 40 MG Tab PO SCH (21:26)
[2019-08-26] MEDS: Furosemide 80 MG Tab PO SCH (21:26)
[2019-08-26] MEDS: Calcium Carbonate 500 MG Tab.Chew PO SCH (21:27)
[2019-08-26] MEDS: Meclizine 25 MG Tab PO SCH (21:39)
--- NOTE | 2019-08-26 22:31 | PCM.SN ---
- Free Text/Narrative Note: 2nd Troponin mildly elevated, patient denies any chest pain currently. We will continue to trend cardiac enzymes. Patient has received ASA, Heparin drip has been started.
[2019-08-26] MEDS: Insulin Isophane NPH, Human 100 Units/ML 10 ML Vial SUBCUT SCH (23:30)
[2019-08-26] MEDS: rOPINIRole 0.5 MG Tab PO SCH (23:34)
[2019-08-27] MEDS ORDERED: Heparin Sodium 5,000 Units/ML Vial IVPUSH ONE ×3 (01:04→12:43)
[2019-08-27] MEDS: Sevelamer Carbonate 800 MG Tab PO SCH ×3 (06:33→21:50)
[2019-08-27] MEDS: hydrALAZINE 25 MG Tab PO SCH ×3 (06:34→21:44)
[2019-08-27] MEDS: Insulin Aspart 100 Units/ML 3 ML Pen SUBCUT SCH ×3 (06:37→17:45)
[2019-08-27] MEDS: Meclizine 25 MG Tab PO SCH ×2 (08:58→21:43)
[2019-08-27] MEDS: Gabapentin 100 MG Cap PO SCH (08:58)
[2019-08-27] MEDS: FLUoxetine 20 MG Cap PO SCH (08:58)
[2019-08-27] MEDS ORDERED: rOPINIRole 0.5 MG Tab PO SCH (09:00)
[2019-08-27] MEDS: Carvedilol 25 MG Tab PO SCH ×2 (09:00→21:43)
[2019-08-27] MEDS ORDERED: Insulin Isophane NPH, Human 100 Units/ML 10 ML Vial SUBCUT SCH (09:00)
[2019-08-27] MEDS: amLODIPine 5 MG Tab PO SCH (09:01)
[2019-08-27] MEDS: Furosemide 80 MG Tab PO SCH ×2 (09:01→21:44)
[2019-08-27] MEDS: Donepezil 10 MG Tab PO SCH (09:01)
[2019-08-27] MEDS: Insulin Isophane NPH, Human 100 Units/ML 10 ML Vial SUBCUT SCH ×2 (09:02→21:38)
[2019-08-27] MEDS: Calcium Carbonate 500 MG Tab.Chew PO SCH ×2 (09:02→21:41)
[2019-08-27] MEDS: CINACALCET 30 MG PO SCH (09:03)
[2019-08-27] MEDS: BIOTIN PO SCH (09:04)
[2019-08-27] MEDS: [UNRECOGNIZED DRUG - OTHER] PO SCH (09:04)
[2019-08-27] MEDS: VIT B CMPLX PO SCH (09:04)
--- NOTE | 2019-08-27 09:21 | PCM.PN ---
- General Info Date of Service: 08/27/19 Subjective Update: Reports no chest pain, SOB, nausea or vomiting overnight. - Patient Data Vitals - Most Recent: Last Vital Signs Temp 97.9 F 08/27/19 07:56 Pulse 72 08/27/19 09:00 Resp 16 08/27/19 07:56 BP 148/72 H 08/27/19 09:01 Pulse Ox 95 08/27/19 07:56 Weight - Most Recent: 216 lb 0.848 oz I&O - Last 24 Hours: Intake & Output 08/26/19 08/27/19 08/27/19 22:59 06:59 14:59 Intake Total 0 200 Output Total 50 Balance -50 200 Lab Results Last 24 Hours: Laboratory Results - last 24 hr 08/26/19 08/26/19 08/26/19 Range/Units 10:45 10:45 10:45 WBC 2.20 L (4.0-11.0) K/uL RBC 2.96 L (4.50-5.90) M/uL Hgb 9.7 L (13.0-17.0) g/dL Hct 30.9 L (38.0-50.0) % MCV 104.4 H (80.0-98.0) fL MCH 32.8 H (27.0-32.0) pg MCHC 31.4 (31.0-37.0) g/dL RDW Std Deviation 58.6 (28.0-62.0) fl RDW Coeff of Braulio 16 H (11.0-15.0) % Plt Count 106 L (150-400) K/uL MPV 10.10 (7.40-12.00) fL Neut % (Auto) 75.0 (48.0-80.0) % Lymph % (Auto) 14.1 L (16.0-40.0) % Pine % (Auto) 9.5 (0.0-15.0) % Eos % (Auto) 1.4 (0.0-7.0) % Baso % (Auto) 0.0 (0.0-1.5) % Neut # (Auto) 1.7 (1.4-5.7) K/uL Lymph # (Auto) 0.3 L (0.6-2.4) K/uL Pine # (Auto) 0.2 (0.0-0.8) K/uL Eos # (Auto) 0.0 (0.0-0.7) K/uL Baso # (Auto) 0.0 (0.0-0.1) K/uL Nucleated RBC % 0.0 /100WBC Nucleated RBCs # 0 K/uL APTT (18.6-31.3) SEC Sodium 139 (136-148) mmol/L Potassium 3.6 (3.5-5.1) mmol/L Chloride 96 L (98-107) mmol/L Carbon Dioxide 30.9 (21.0-32.0) mmol/L BUN 18 (7.0-18.0) mg/dL Creatinine 3.7 H (0.8-1.3) mg/dL Est Cr Clr Drug Dosing 23.84 mL/min Estimated GFR (MDRD) 17.3 ml/min Glucose 224 H (74-106) mg/dL POC Glucose (60-110) mg/dL Calcium 9.1 (8.5-10.1) mg/dL Total Bilirubin 1.4 H (0.2-1.0) mg/dL AST 22 (15-37) IU/L ALT 23 (14-63) IU/L Alkaline Phosphatase 133 H (46-116) U/L Troponin I < 0.050 (0.000-0.056) ng/mL B-Natriuretic Peptide 1485 H (<100) PG/ML Total Protein 7.3 (6.4-8.2) g/dL Albumin 3.7 (3.4-5.0) g/dL Globulin 3.6 (2.6-4.0) g/dL Albumin/Globulin Ratio 1.0 (0.9-1.6) Lipase 116 (73-393) U/L Urine Color Urine Appearance Urine pH (5.0-8.0) Ur Specific [place] (1.001-1.035) Urine Protein (NEGATIVE) mg/dL Urine Glucose (UA) (NEGATIVE) mg/dL Urine Ketones (NEGATIVE) mg/dL Urine Occult Blood (NEGATIVE) Urine Nitrite (NEGATIVE) Urine Bilirubin (NEGATIVE) Urine Urobilinogen (<2.0) EU/dL Ur Leukocyte Esterase (NEGATIVE) Urine RBC (0-2/HPF) Urine WBC (0-5/HPF) Ur Epithelial Cells (NONE-FEW) Urine Bacteria (NEGATIVE) 08/26/19 08/26/19 08/26/19 Range/Units 13:20 14:52 16:40 WBC (4.0-11.0) K/uL RBC (4.50-5.90) M/uL Hgb (13.0-17.0) g/dL Hct (38.0-50.0) % MCV (80.0-98.0) fL MCH (27.0-32.0) pg MCHC (31.0-37.0) g/dL RDW Std Deviation (28.0-62.0) fl RDW Coeff of Braulio (11.0-15.0) % Plt Count (150-400) K/uL MPV (7.40-12.00) fL Neut % (Auto) (48.0-80.0) % Lymph % (Auto) (16.0-40.0) % Pine % (Auto) (0.0-15.0) % Eos % (Auto) (0.0-7.0) % Baso % (Auto) (0.0-1.5) % Neut # (Auto) (1.4-5.7) K/uL Lymph # (Auto) (0.6-2.4) K/uL Pine # (Auto) (0.0-0.8) K/uL Eos # (Auto) (0.0-0.7) K/uL Baso # (Auto) (0.0-0.1) K/uL Nucleated RBC % /100WBC Nucleated RBCs # K/uL APTT (18.6-31.3) SEC Sodium (136-148) mmol/L Potassium (3.5-5.1) mmol/L Chloride (98-107) mmol/L Carbon Dioxide (21.0-32.0) mmol/L BUN (7.0-18.0) mg/dL Creatinine (0.8-1.3) mg/dL Est Cr Clr Drug Dosing mL/min Estimated GFR (MDRD) ml/min Glucose (74-106) mg/dL POC Glucose 213 H (60-110) mg/dL Calcium (8.5-10.1) mg/dL Total Bilirubin (0.2-1.0) mg/dL AST (15-37) IU/L ALT (14-63) IU/L Alkaline Phosphatase (46-116) U/L Troponin I 0.209 H* (0.000-0.056) ng/mL B-Natriuretic Peptide (<100) PG/ML Total Protein (6.4-8.2) g/dL Albumin (3.4-5.0) g/dL Globulin (2.6-4.0) g/dL Albumin/Globulin Ratio (0.9-1.6) Lipase (73-393) U/L Urine Color YELLOW Urine Appearance HAZY Urine pH 8.5 H (5.0-8.0) Ur Specific [place] 1.020 (1.001-1.035) Urine Protein 100 H (NEGATIVE) mg/dL Urine Glucose (UA) 100 H (NEGATIVE) mg/dL Urine Ketones NEGATIVE (NEGATIVE) mg/dL Urine Occult Blood SMALL H (NEGATIVE) Urine Nitrite NEGATIVE (NEGATIVE) Urine Bilirubin NEGATIVE (NEGATIVE) Urine Urobilinogen 0.2 (<2.0) EU/dL Ur Leukocyte Esterase NEGATIVE (NEGATIVE) Urine RBC 1-5 (0-2/HPF) Urine WBC 0-5 (0-5/HPF) Ur Epithelial Cells RARE (NONE-FEW) Urine Bacteria FEW (NEGATIVE) 08/26/19 08/26/19 08/26/19 Range/Units 18:23 21:48 22:50 WBC (4.0-11.0) K/uL RBC (4.50-5.90) M/uL Hgb (13.0-17.0) g/dL Hct (38.0-50.0) % MCV (80.0-98.0) fL MCH (27.0-32.0) pg MCHC (31.0-37.0) g/dL RDW Std Deviation (28.0-62.0) fl RDW Coeff of Braulio (11.0-15.0) % Plt Count (150-400) K/uL MPV (7.40-12.00) fL Neut % (Auto) (48.0-80.0) % Lymph % (Auto) (16.0-40.0) % Pine % (Auto) (0.0-15.0) % Eos % (Auto) (0.0-7.0) % Baso % (Auto) (0.0-1.5) % Neut # (Auto) (1.4-5.7) K/uL Lymph # (Auto) (0.6-2.4) K/uL Pine # (Auto) (0.0-0.8) K/uL Eos # (Auto) (0.0-0.7) K/uL Baso # (Auto) (0.0-0.1) K/uL Nucleated RBC % /100WBC Nucleated RBCs # K/uL APTT 22.9 (18.6-31.3) SEC Sodium (136-148) mmol/L Potassium (3.5-5.1) mmol/L Chloride (98-107) mmol/L Carbon Dioxide (21.0-32.0) mmol/L BUN (7.0-18.0) mg/dL Creatinine (0.8-1.3) mg/dL Est Cr Clr Drug Dosing mL/min Estimated GFR (MDRD) ml/min Glucose (74-106) mg/dL POC Glucose 241 H (60-110) mg/dL Calcium (8.5-10.1) mg/dL Total Bilirubin (0.2-1.0) mg/dL AST (15-37) IU/L ALT (14-63) IU/L Alkaline Phosphatase (46-116) U/L Troponin I 0.254 H* (0.000-0.056) ng/mL B-Natriuretic Peptide (<100) PG/ML Total Protein (6.4-8.2) g/dL Albumin (3.4-5.0) g/dL Globulin (2.6-4.0) g/dL Albumin/Globulin Ratio (0.9-1.6) Lipase (73-393) U/L Urine Color Urine Appearance Urine pH (5.0-8.0) Ur Specific [place] (1.001-1.035) Urine Protein (NEGATIVE) mg/dL Urine Glucose (UA) (NEGATIVE) mg/dL Urine Ketones (NEGATIVE) mg/dL Urine Occult Blood (NEGATIVE) Urine Nitrite (NEGATIVE) Urine Bilirubin (NEGATIVE) Urine Urobilinogen (<2.0) EU/dL Ur Leukocyte Esterase (NEGATIVE) Urine RBC (0-2/HPF) Urine WBC (0-5/HPF) Ur Epithelial Cells (NONE-FEW) Urine Bacteria (NEGATIVE) 08/27/19 08/27/19 08/27/19 Range/Units 00:30 06:05 06:05 WBC (4.0-11.0) K/uL RBC (4.50-5.90) M/uL Hgb (13.0-17.0) g/dL Hct (38.0-50.0) % MCV (80.0-98.0) fL MCH (27.0-32.0) pg MCHC (31.0-37.0) g/dL RDW Std Deviation (28.0-62.0) fl RDW Coeff of Braulio (11.0-15.0) % Plt Count (150-400) K/uL MPV (7.40-12.00) fL Neut % (Auto) (48.0-80.0) % Lymph % (Auto) (16.0-40.0) % Pine % (Auto) (0.0-15.0) % Eos % (Auto) (0.0-7.0) % Baso % (Auto) (0.0-1.5) % Neut # (Auto) (1.4-5.7) K/uL Lymph # (Auto) (0.6-2.4) K/uL [place] # (Auto) (0.0-0.8) K/uL Eos # (Auto) (0.0-0.7) K/uL Baso # (Auto) (0.0-0.1) K/uL Nucleated RBC % /100WBC Nucleated RBCs # K/uL APTT 36.2 H 41.5 H (18.6-31.3) SEC Sodium (136-148) mmol/L Potassium (3.5-5.1) mmol/L Chloride (98-107) mmol/L Carbon Dioxide (21.0-32.0) mmol/L BUN (7.0-18.0) mg/dL Creatinine (0.8-1.3) mg/dL Est Cr Clr Drug Dosing mL/min Estimated GFR (MDRD) ml/min Glucose (74-106) mg/dL POC Glucose (60-110) mg/dL Calcium (8.5-10.1) mg/dL Total Bilirubin (0.2-1.0) mg/dL AST (15-37) IU/L ALT (14-63) IU/L Alkaline Phosphatase (46-116) U/L Troponin I 0.173 H* (0.000-0.056) ng/mL B-Natriuretic Peptide (<100) PG/ML Total Protein (6.4-8.2) g/dL Albumin (3.4-5.0) g/dL Globulin (2.6-4.0) g/dL Albumin/Globulin Ratio (0.9-1.6) Lipase (73-393) U/L Urine Color Urine Appearance Urine pH (5.0-8.0) Ur Specific [place] (1.001-1.035) Urine Protein (NEGATIVE) mg/dL Urine Glucose (UA) (NEGATIVE) mg/dL Urine Ketones (NEGATIVE) mg/dL Urine Occult Blood (NEGATIVE) Urine Nitrite (NEGATIVE) Urine Bilirubin (NEGATIVE) Urine Urobilinogen (<2.0) EU/dL Ur Leukocyte Esterase (NEGATIVE) Urine RBC (0-2/HPF) Urine WBC (0-5/HPF) Ur Epithelial Cells (NONE-FEW) Urine Bacteria (NEGATIVE) 08/27/19 Range/Units 08:56 WBC (4.0-11.0) K/uL RBC (4.50-5.90) M/uL Hgb (13.0-17.0) g/dL Hct (38.0-50.0) % MCV (80.0-98.0) fL MCH (27.0-32.0) pg MCHC (31.0-37.0) g/dL RDW Std Deviation (28.0-62.0) fl RDW Coeff of Braulio (11.0-15.0) % Plt Count (150-400) K/uL MPV (7.40-12.00) fL Neut % (Auto) (48.0-80.0) % Lymph % (Auto) (16.0-40.0) % [place] % (Auto) (0.0-15.0) % Eos % (Auto) (0.0-7.0) % Baso % (Auto) (0.0-1.5) % Neut # (Auto) (1.4-5.7) K/uL Lymph # (Auto) (0.6-2.4) K/uL [place] # (Auto) (0.0-0.8) K/uL Eos # (Auto) (0.0-0.7) K/uL Baso # (Auto) (0.0-0.1) K/uL Nucleated RBC % /100WBC Nucleated RBCs # K/uL APTT (18.6-31.3) SEC Sodium (136-148) mmol/L Potassium (3.5-5.1) mmol/L Chloride (98-107) mmol/L Carbon Dioxide (21.0-32.0) mmol/L BUN (7.0-18.0) mg/dL Creatinine (0.8-1.3) mg/dL Est Cr Clr Drug Dosing mL/min Estimated GFR (MDRD) ml/min Glucose (74-106) mg/dL POC Glucose 220 H (60-110) mg/dL Calcium (8.5-10.1) mg/dL Total Bilirubin (0.2-1.0) mg/dL AST (15-37) IU/L ALT (14-63) IU/L Alkaline Phosphatase (46-116) U/L Troponin I (0.000-0.056) ng/mL B-Natriuretic Peptide (<100) PG/ML Total Protein (6.4-8.2) g/dL Albumin (3.4-5.0) g/dL Globulin (2.6-4.0) g/dL Albumin/Globulin Ratio (0.9-1.6) Lipase (73-393) U/L Urine Color Urine Appearance Urine pH (5.0-8.0) Ur Specific [place] (1.001-1.035) Urine Protein (NEGATIVE) mg/dL Urine Glucose (UA) (NEGATIVE) mg/dL Urine Ketones (NEGATIVE) mg/dL Urine Occult Blood (NEGATIVE) Urine Nitrite (NEGATIVE) Urine Bilirubin (NEGATIVE) Urine Urobilinogen (<2.0) EU/dL Ur Leukocyte Esterase (NEGATIVE) Urine RBC (0-2/HPF) Urine WBC (0-5/HPF) Ur Epithelial Cells (NONE-FEW) Urine Bacteria (NEGATIVE) Med Orders - Current: Current Medications Acetaminophen (Tylenol) 325 mg PO ASDIRECTED PRN PRN Reason: Pain/Fever Amlodipine Besylate (Norvasc) 10 mg PO DAILY [facility] Last Admin: 04/04/20 09:01 Dose: 10 mg Atorvastatin Calcium (Lipitor) 40 mg PO BEDTIME [facility] Last Admin: 08/26/19 21:26 Dose: 40 mg Calcium Carbonate/Glycine (Tums) 1,500 mg PO BID [facility] Last Admin: 08/27/19 09:02 Dose: 1,500 mg Carvedilol (Coreg) 25 mg PO BID [facility] Last Admin: 08/27/19 09:00 Dose: 25 mg Donepezil HCl (Aricept) 10 mg PO DAILY [facility] Last Admin: 08/27/19 09:01 Dose: 10 mg Fluoxetine HCl (Prozac) 40 mg PO DAILY [facility] Last Admin: 08/27/19 08:58 Dose: 40 mg Furosemide (Lasix) 80 mg PO BID [facility] Last Admin: 08/27/19 09:01 Dose: 80 mg Gabapentin (Neurontin) 200 mg PO DAILY [facility] Last Admin: 08/27/19 08:58 Dose: 200 mg Hydralazine HCl (Apresoline) 25 mg PO TID [facility] Last Admin: 08/27/19 06:34 Dose: 25 mg Pantoprazole Sodium 40 mg/ (Sodium Chloride) 10 mls @ 300 mls/hr IV Q24H [facility] Last Admin: 08/26/19 13:36 Dose: 300 mls/hr Heparin Sodium/Sodium Chloride (Heparin-1/2ns 25,000 Units/500) 25,000 unit in 500 mls @ 19.6 mls/hr IV TITRATE [facility]; Protocol Last Titration: 08/27/19 07:43 Dose: 14 units/kg/hr, 27.44 mls/hr Insulin Aspart (Novolog) 0 unit SUBCUT Q6H [facility]; Protocol Last Admin: 08/27/19 06:37 Dose: Not Given Insulin Human NPH (Novolin N) 25 - 30 unit SUBCUT BID [facility] Last Admin: 08/27/19 09:02 Dose: 30 unit Meclizine HCl (Antivert) 25 mg PO BID [facility] Last Admin: 08/27/19 08:58 Dose: Not Given Nitroglycerin (Nitrostat) 0.4 mg SL Q5M PRN PRN Reason: Chest Pain Last Admin: 08/26/19 11:01 Dose: 0.4 mg Ondansetron HCl (Zofran) 4 mg IVPUSH Q4H PRN PRN Reason: Nausea Cinacalcet 30 Mg 1 each PO DAILY [facility] Last Admin: 08/27/19 09:03 Dose: Not Given Vit B Cmplx 3/Fa/Vit C/Biotin [Nilda-Anne Rx Tablet] 1 each PO DAILY [facility] Last Admin: 08/27/19 09:04 Dose: Not Given Zolpidem Tartrate 10 (Mg) 1 each PO BEDTIME PRN PRN Reason: Insomnia Ropinirole HCl (Requip) 0.5 mg PO BEDTIME [facility] Last Admin: 08/26/19 23:34 Dose: 0.5 mg Sevelamer Carbonate (Renvela) 800 mg PO TID [facility] Last Admin: 08/27/19 06:33 Dose: Not Given Sodium Chloride (Saline Flush) 2.5 ml FLUSH ASDIRECTED PRN PRN Reason: Keep Vein Open Last Admin: 08/26/19 10:58 Dose: 2.5 ml Tramadol HCl (Ultram) 50 - 100 mg PO TID PRN PRN Reason: Pain Last Admin: 08/26/19 23:32 Dose: 100 mg Discontinued Medications Aspirin (Aspirin) 324 mg PO ONETIME ONE Stop: 08/26/19 10:44 Last Admin: 08/26/19 10:56 Dose: 324 mg Heparin Sodium (Porcine) (Heparin Sodium) 5,880 units IVPUSH .BOLUS ONE Stop: 08/26/19 18:16 Last Admin: 08/26/19 18:30 Dose: 5,880 units Heparin Sodium (Porcine) (Heparin Sodium) 1,000 units IVPUSH .BOLUS ONE Stop: 08/27/19 01:05 Last Admin: 08/27/19 01:37 Dose: 1,000 units Heparin Sodium (Porcine) (Heparin Sodium) 1,000 units IVPUSH ONETIME ONE Stop: 08/27/19 07:08 Last Admin: 08/27/19 07:40 Dose: 1,000 units Heparin Sodium/Sodium Chloride (Heparin-1/2ns 25,000 Units/500) 25,000 unit in 500 mls @ 23.52 mls/hr IV TITRATE [facility]; Protocol Heparin Sodium/Sodium Chloride (Heparin-1/2ns 25,000 Units/500) 25,000 unit in 500 mls @ 20 mls/hr IV TITRATE [facility]; Protocol Insulin Human NPH (Novolin N) 50 unit SUBCUT BID [facility] Last Admin: 08/27/19 01:06 Dose: Not Given Insulin Human NPH (Novolin N) 25 - 30 unit SUBCUT BID [facility] Ropinirole HCl (Requip) 0.5 mg PO DAILY [facility] Sodium Chloride (Saline Flush) 10 ml FLUSH ASDIRECTED PRN PRN Reason: Keep Vein Open Last Admin: 08/26/19 10:58 Dose: 10 ml - Exam General: Alert, Oriented, Cooperative, No Acute Distress Lungs: Clear to Auscultation, Normal Respiratory Effort Cardiovascular: Regular Rate, Regular Rhythm GI/Abdominal Exam: Normal Bowel Sounds, Soft, Non-Tender, No Distention Extremities: Normal Inspection, No Pedal Edema Sepsis Event Note - Evaluation Sepsis Screening Result: No Definite Risk - Focused Exam Vital Signs: Vital Signs Temp Pulse Pulse Resp BP BP BP 08/27/19 09:01 148/72 H 08/27/19 09:00 72 148/72 H 08/27/19 07:56 97.9 F 82 16 148/72 H 08/27/19 06:34 138/69 08/27/19 04:00 97.7 F 89 16 134/68 08/27/19 00:00 97.9 F 78 12 156/78 H 08/26/19 21:25 161/74 H 08/26/19 21:20 85 161/74 H Pulse Ox 08/27/19 09:01 08/27/19 09:00 08/27/19 07:56 95 08/27/19 06:34 08/27/19 04:00 76 L 08/27/19 00:00 92 L 08/26/19 21:25 08/26/19 21:20 Date Exam was Performed: 08/27/19 Time Exam was Performed: 11:05 - Problem List Review Problem List Initiated/Reviewed/Updated: Yes - My Orders Last 24 Hours: My Active Orders 08/27/19 12:15 PTT,PARTIAL THROMBOPLSTIN TIME [COAG] Q6H 08/27/19 18:15 PTT,PARTIAL THROMBOPLSTIN TIME [COAG] Q6H 08/28/19 00:15 PTT,PARTIAL THROMBOPLSTIN TIME [COAG] Q6H 08/28/19 06:15 PTT,PARTIAL THROMBOPLSTIN TIME [COAG] Q6H - Plan Plan:: Assessment and Plan: 1. Chest pain, resolved: - Troponins were elevated overnight: 0.209, 0.254 and then 0.173. Patient was started on heparin drip yesterday evening. Patient currently asymptomatic. Will continue to trend troponin today. 2. Nausea likely secondary to gastroparesis, resolved: - Will advance to regular diet, continue Protonix 40 mg IV and zofran prn. - Abd xray was unremarkable. 3. DM Type 2: - Monitor BS TID AC, home regimen of insulin. 4. Gastroparesis/j tube: - Consult [facility] to assist with tube feedings. 5. Past medical history of: HTN, HLD, chronic pancreatitis, ESRD - Will continue home medications. 6. DVT prophylaxis: Patient on heparin drip.
[2019-08-27 11:18] LABS: CARBON DIOXIDE,CO2 32.3 mmol/L (21.0-32.0); POTASSIUM,K 4.5 mmol/L (3.5-5.1)
[2019-08-27] MEDS: Pantoprazole 40 MG in Sodium Chloride 0.9% 10 ML IV SCH (13:42)
[2019-08-27] MEDS: Heparin Sod,Pork In 0.45% Nacl 25,000 UNIT/500 ML IV.SOLN IV SCH (16:54)
[2019-08-27] MEDS: atorvaSTATin 40 MG Tab PO SCH (21:44)
[2019-08-27] MEDS: rOPINIRole 0.5 MG Tab PO SCH (21:45)
[2019-08-28] MEDS: Insulin Aspart 100 Units/ML 3 ML Pen SUBCUT SCH ×3 (03:07→12:23)
[2019-08-28] MEDS: Sevelamer Carbonate 800 MG Tab PO SCH ×2 (06:32→13:51)
[2019-08-28] MEDS: hydrALAZINE 25 MG Tab PO SCH ×2 (06:32→13:48)
[2019-08-28 06:47] LABS: CARBON DIOXIDE,CO2 31.7 mmol/L (21.0-32.0); POTASSIUM,K 4.8 mmol/L (3.5-5.1)
[2019-08-28] MEDS: Donepezil 10 MG Tab PO SCH (08:12)
[2019-08-28] MEDS: amLODIPine 5 MG Tab PO SCH (08:12)
[2019-08-28] MEDS: Calcium Carbonate 500 MG Tab.Chew PO SCH (08:12)
[2019-08-28] MEDS: Meclizine 25 MG Tab PO SCH (08:13)
[2019-08-28] MEDS: Carvedilol 25 MG Tab PO SCH (08:13)
[2019-08-28] MEDS: Gabapentin 100 MG Cap PO SCH (08:13)
[2019-08-28] MEDS: FLUoxetine 20 MG Cap PO SCH (08:13)
[2019-08-28] MEDS: Furosemide 80 MG Tab PO SCH (08:14)
[2019-08-28] MEDS: CINACALCET 30 MG PO SCH (08:15)
[2019-08-28] MEDS: BIOTIN PO SCH (08:15)
[2019-08-28] MEDS: [UNRECOGNIZED DRUG - OTHER] PO SCH (08:15)
[2019-08-28] MEDS: VIT B CMPLX PO SCH (08:15)
[2019-08-28] MEDS ORDERED: Aspirin 81 MG Tab.Chew PO SCH (09:00)
[2019-08-28] MEDS: Insulin Isophane NPH, Human 100 Units/ML 10 ML Vial SUBCUT SCH (09:17)
[2019-08-28] MEDS: Pantoprazole 40 MG in Sodium Chloride 0.9% 10 ML IV SCH (12:34)
--- NOTE | 2019-08-28 12:49 | PCM.PN ---
- General Info Date of Service: 08/28/19 Admission Dx/Problem (Free Text): Admission Diagnosis/Problem Admission Diagnosis/Problem Chest pain Subjective Update: Reports no chest pain, SOB, nausea or vomiting overnight. - Review of Systems General: Denies: Fever, Weakness Pulmonary: Denies: Shortness of Breath, Pleuritic Chest Pain Cardiovascular: Denies: Chest Pain, Palpitations, Dyspnea on Exertion Gastrointestinal: Denies: Abdominal Pain, Constipation, Decreased Appetite Genitourinary: Denies: Dysuria, Frequency, Burning, Retention Musculoskeletal: Denies: Neck Pain, Shoulder Pain, Arm Pain Skin: Denies: Cyanosis, Jaundice, Mottled Neurological: Denies: Confusion, Dizziness, Headache - Patient Data Vitals - Most Recent: Last Vital Signs Temp 36.2 C 08/28/19 12:30 Pulse 66 08/28/19 12:30 Resp 16 08/28/19 12:30 BP 161/72 H 08/28/19 12:30 Pulse Ox 94 L 08/28/19 12:30 Weight - Most Recent: 98 kg I&O - Last 24 Hours: Intake & Output 08/27/19 08/28/19 08/28/19 22:59 06:59 14:59 Intake Total 440 850 13 Output Total 150 75 Balance 290 775 13 Lab Results Last 24 Hours: Laboratory Results - last 24 hr 08/27/19 08/27/19 08/27/19 Range/Units 12:10 17:05 18:20 WBC (4.0-11.0) K/uL RBC (4.50-5.90) M/uL Hgb (13.0-17.0) g/dL Hct (38.0-50.0) % MCV (80.0-98.0) fL MCH (27.0-32.0) pg MCHC (31.0-37.0) g/dL RDW Std Deviation (28.0-62.0) fl RDW Coeff of Braulio (11.0-15.0) % Plt Count (150-400) K/uL MPV (7.40-12.00) fL Add Manual Diff Neutrophils % (Manual) (48.0-80.0) % Lymphocytes % (Manual) (16.0-40.0) % Monocytes % (Manual) (0.0-15.0) % Eosinophils % (Manual) (0.0-7.0) % Basophils % (Manual) (0.0-1.5) % Nucleated RBC % /100WBC Absolute Seg Neuts (1.4-5.7) Lymphocytes # (Manual) (0.6-2.4) Monocytes # (Manual) (0.0-0.8) Eosinophils # (Manual) (0.0-0.7) Basophils # (Manual) (0.0-0.1) Nucleated RBCs # K/uL APTT 57.2 H (18.6-31.3) SEC Sodium (136-148) mmol/L Potassium (3.5-5.1) mmol/L Chloride (98-107) mmol/L Carbon Dioxide (21.0-32.0) mmol/L BUN (7.0-18.0) mg/dL Creatinine (0.8-1.3) mg/dL Est Cr Clr Drug Dosing mL/min Estimated GFR (MDRD) ml/min Glucose (74-106) mg/dL POC Glucose 218 H 234 H (60-110) mg/dL Calcium (8.5-10.1) mg/dL Total Bilirubin (0.2-1.0) mg/dL AST (15-37) IU/L ALT (14-63) IU/L Alkaline Phosphatase (46-116) U/L B-Natriuretic Peptide (<100) PG/ML Total Protein (6.4-8.2) g/dL Albumin (3.4-5.0) g/dL Globulin (2.6-4.0) g/dL Albumin/Globulin Ratio (0.9-1.6) Blood Type Antibody Screen Crossmatch 08/27/19 08/28/19 08/28/19 Range/Units 21:33 00:25 03:03 WBC (4.0-11.0) K/uL RBC (4.50-5.90) M/uL Hgb (13.0-17.0) g/dL Hct (38.0-50.0) % MCV (80.0-98.0) fL MCH (27.0-32.0) pg MCHC (31.0-37.0) g/dL RDW Std Deviation (28.0-62.0) fl RDW Coeff of Braulio (11.0-15.0) % Plt Count (150-400) K/uL MPV (7.40-12.00) fL Add Manual Diff Neutrophils % (Manual) (48.0-80.0) % Lymphocytes % (Manual) (16.0-40.0) % Monocytes % (Manual) (0.0-15.0) % Eosinophils % (Manual) (0.0-7.0) % Basophils % (Manual) (0.0-1.5) % Nucleated RBC % /100WBC Absolute Seg Neuts (1.4-5.7) Lymphocytes # (Manual) (0.6-2.4) Monocytes # (Manual) (0.0-0.8) Eosinophils # (Manual) (0.0-0.7) Basophils # (Manual) (0.0-0.1) Nucleated RBCs # K/uL APTT 74.8 H (18.6-31.3) SEC Sodium (136-148) mmol/L Potassium (3.5-5.1) mmol/L Chloride (98-107) mmol/L Carbon Dioxide (21.0-32.0) mmol/L BUN (7.0-18.0) mg/dL Creatinine (0.8-1.3) mg/dL Est Cr Clr Drug Dosing mL/min Estimated GFR (MDRD) ml/min Glucose (74-106) mg/dL POC Glucose 209 H 114 H (60-110) mg/dL Calcium (8.5-10.1) mg/dL Total Bilirubin (0.2-1.0) mg/dL AST (15-37) IU/L ALT (14-63) IU/L Alkaline Phosphatase (46-116) U/L B-Natriuretic Peptide (<100) PG/ML Total Protein (6.4-8.2) g/dL Albumin (3.4-5.0) g/dL Globulin (2.6-4.0) g/dL Albumin/Globulin Ratio (0.9-1.6) Blood Type Antibody Screen Crossmatch 08/28/19 08/28/19 08/28/19 Range/Units 06:05 06:05 06:30 WBC 1.40 L (4.0-11.0) K/uL RBC 2.38 L (4.50-5.90) M/uL Hgb 7.7 L (13.0-17.0) g/dL Hct 25.2 L (38.0-50.0) % MCV 105.9 H (80.0-98.0) fL MCH 32.4 H (27.0-32.0) pg MCHC 30.6 L (31.0-37.0) g/dL RDW Std Deviation 58.7 (28.0-62.0) fl RDW Coeff of Braulio 15 (11.0-15.0) % Plt Count 82 L (150-400) K/uL MPV 10.10 (7.40-12.00) fL Add Manual Diff YES Neutrophils % (Manual) 65 (48.0-80.0) % Lymphocytes % (Manual) 20 (16.0-40.0) % Monocytes % (Manual) 7 (0.0-15.0) % Eosinophils % (Manual) 6 (0.0-7.0) % Basophils % (Manual) 2 H (0.0-1.5) % Nucleated RBC % 0.0 /100WBC Absolute Seg Neuts 0.9 L (1.4-5.7) Lymphocytes # (Manual) 0.3 L (0.6-2.4) Monocytes # (Manual) 0.1 (0.0-0.8) Eosinophils # (Manual) 0.1 (0.0-0.7) Basophils # (Manual) 0.0 (0.0-0.1) Nucleated RBCs # 0 K/uL APTT (18.6-31.3) SEC Sodium 140 (136-148) mmol/L Potassium 4.8 (3.5-5.1) mmol/L Chloride 101 (98-107) mmol/L Carbon Dioxide 31.7 (21.0-32.0) mmol/L BUN 39 H (7.0-18.0) mg/dL Creatinine 7.0 H (0.8-1.3) mg/dL Est Cr Clr Drug Dosing 12.60 mL/min Estimated GFR (MDRD) 8.3 ml/min Glucose 158 H (74-106) mg/dL POC Glucose 154 H (60-110) mg/dL Calcium 8.3 L (8.5-10.1) mg/dL Total Bilirubin 0.8 (0.2-1.0) mg/dL AST 16 (15-37) IU/L ALT 18 (14-63) IU/L Alkaline Phosphatase 104 (46-116) U/L B-Natriuretic Peptide (<100) PG/ML Total Protein 5.8 L (6.4-8.2) g/dL Albumin 2.8 L (3.4-5.0) g/dL Globulin 3.0 (2.6-4.0) g/dL Albumin/Globulin Ratio 0.9 (0.9-1.6) Blood Type Antibody Screen Crossmatch 08/28/19 08/28/19 08/28/19 Range/Units 09:12 09:34 09:34 WBC (4.0-11.0) K/uL RBC (4.50-5.90) M/uL Hgb (13.0-17.0) g/dL Hct (38.0-50.0) % MCV (80.0-98.0) fL MCH (27.0-32.0) pg MCHC (31.0-37.0) g/dL RDW Std Deviation (28.0-62.0) fl RDW Coeff of Braulio (11.0-15.0) % Plt Count (150-400) K/uL MPV (7.40-12.00) fL Add Manual Diff Neutrophils % (Manual) (48.0-80.0) % Lymphocytes % (Manual) (16.0-40.0) % Monocytes % (Manual) (0.0-15.0) % Eosinophils % (Manual) (0.0-7.0) % Basophils % (Manual) (0.0-1.5) % Nucleated RBC % /100WBC Absolute Seg Neuts (1.4-5.7) Lymphocytes # (Manual) (0.6-2.4) Monocytes # (Manual) (0.0-0.8) Eosinophils # (Manual) (0.0-0.7) Basophils # (Manual) (0.0-0.1) Nucleated RBCs # K/uL APTT (18.6-31.3) SEC Sodium (136-148) mmol/L Potassium (3.5-5.1) mmol/L Chloride (98-107) mmol/L Carbon Dioxide (21.0-32.0) mmol/L BUN (7.0-18.0) mg/dL Creatinine (0.8-1.3) mg/dL Est Cr Clr Drug Dosing mL/min Estimated GFR (MDRD) ml/min Glucose (74-106) mg/dL POC Glucose 166 H (60-110) mg/dL Calcium (8.5-10.1) mg/dL Total Bilirubin (0.2-1.0) mg/dL AST (15-37) IU/L ALT (14-63) IU/L Alkaline Phosphatase (46-116) U/L B-Natriuretic Peptide 1623 H (<100) PG/ML Total Protein (6.4-8.2) g/dL Albumin (3.4-5.0) g/dL Globulin (2.6-4.0) g/dL Albumin/Globulin Ratio (0.9-1.6) Blood Type A NEGATIVE Antibody Screen NEGATIVE Crossmatch See Detail 08/28/19 Range/Units 12:08 WBC (4.0-11.0) K/uL RBC (4.50-5.90) M/uL Hgb (13.0-17.0) g/dL Hct (38.0-50.0) % MCV (80.0-98.0) fL MCH (27.0-32.0) pg MCHC (31.0-37.0) g/dL RDW Std Deviation (28.0-62.0) fl RDW Coeff of Braulio (11.0-15.0) % Plt Count (150-400) K/uL MPV (7.40-12.00) fL Add Manual Diff Neutrophils % (Manual) (48.0-80.0) % Lymphocytes % (Manual) (16.0-40.0) % Monocytes % (Manual) (0.0-15.0) % Eosinophils % (Manual) (0.0-7.0) % Basophils % (Manual) (0.0-1.5) % Nucleated RBC % /100WBC Absolute Seg Neuts (1.4-5.7) Lymphocytes # (Manual) (0.6-2.4) Monocytes # (Manual) (0.0-0.8) Eosinophils # (Manual) (0.0-0.7) Basophils # (Manual) (0.0-0.1) Nucleated RBCs # K/uL APTT (18.6-31.3) SEC Sodium (136-148) mmol/L Potassium (3.5-5.1) mmol/L Chloride (98-107) mmol/L Carbon Dioxide (21.0-32.0) mmol/L BUN (7.0-18.0) mg/dL Creatinine (0.8-1.3) mg/dL Est Cr Clr Drug Dosing mL/min Estimated GFR (MDRD) ml/min Glucose (74-106) mg/dL POC Glucose 190 H (60-110) mg/dL Calcium (8.5-10.1) mg/dL Total Bilirubin (0.2-1.0) mg/dL AST (15-37) IU/L ALT (14-63) IU/L Alkaline Phosphatase (46-116) U/L B-Natriuretic Peptide (<100) PG/ML Total Protein (6.4-8.2) g/dL Albumin (3.4-5.0) g/dL Globulin (2.6-4.0) g/dL Albumin/Globulin Ratio (0.9-1.6) Blood Type Antibody Screen Crossmatch Med Orders - Current: Current Medications Acetaminophen (Tylenol) 325 mg PO ASDIRECTED PRN PRN Reason: Pain/Fever Amlodipine Besylate (Norvasc) 10 mg PO DAILY [facility] Last Admin: 08/28/19 08:12 Dose: 10 mg Aspirin (Aspirin) 81 mg PO DAILY [facility] Last Admin: 08/28/19 08:14 Dose: 81 mg Atorvastatin Calcium (Lipitor) 40 mg PO BEDTIME [facility] Last Admin: 08/27/19 21:44 Dose: 40 mg Calcium Carbonate/Glycine (Tums) 1,500 mg PO BID [facility] Last Admin: 08/28/19 08:12 Dose: 1,500 mg Carvedilol (Coreg) 25 mg PO BID [facility] Last Admin: 08/28/19 08:13 Dose: 25 mg Donepezil HCl (Aricept) 10 mg PO DAILY [facility] Last Admin: 08/28/19 08:12 Dose: 10 mg Fluoxetine HCl (Prozac) 40 mg PO DAILY [facility] Last Admin: 08/28/19 08:13 Dose: 40 mg Furosemide (Lasix) 80 mg PO BID [facility] Last Admin: 08/28/19 08:14 Dose: 80 mg Gabapentin (Neurontin) 200 mg PO DAILY [facility] Last Admin: 08/28/19 08:13 Dose: 200 mg Hydralazine HCl (Apresoline) 25 mg PO TID [facility] Last Admin: 08/28/19 06:32 Dose: 25 mg Pantoprazole Sodium 40 mg/ (Sodium Chloride) 10 mls @ 300 mls/hr IV Q24H [facility] Last Admin: 08/28/19 12:34 Dose: 300 mls/hr Insulin Aspart (Novolog) 0 unit SUBCUT Q6H [facility]; Protocol Last Admin: 08/28/19 12:23 Dose: 1 unit Insulin Human NPH (Novolin N) 25 - 30 unit SUBCUT BID [facility] Last Admin: 08/28/19 09:17 Dose: 25 unit Meclizine HCl (Antivert) 25 mg PO BID [facility] Last Admin: 08/28/19 08:13 Dose: 25 mg Nitroglycerin (Nitrostat) 0.4 mg SL Q5M PRN PRN Reason: Chest Pain Last Admin: 08/26/19 11:01 Dose: 0.4 mg Ondansetron HCl (Zofran) 4 mg IVPUSH Q4H PRN PRN Reason: Nausea Cinacalcet 30 Mg 1 each PO DAILY [facility] Last Admin: 08/28/19 08:15 Dose: Not Given Vit B Cmplx 3/Fa/Vit C/Biotin [Nilda-Anne Rx Tablet] 1 each PO DAILY [facility] Last Admin: 08/28/19 08:15 Dose: Not Given Zolpidem Tartrate 10 (Mg) 1 each PO BEDTIME PRN PRN Reason: Insomnia Ropinirole HCl (Requip) 0.5 mg PO BEDTIME [facility] Last Admin: 08/27/19 21:45 Dose: 0.5 mg Sevelamer Carbonate (Renvela) 800 mg PO TID [facility] Last Admin: 08/28/19 06:32 Dose: 800 mg Sodium Chloride (Saline Flush) 2.5 ml FLUSH ASDIRECTED PRN PRN Reason: Keep Vein Open Last Admin: 08/26/19 10:58 Dose: 2.5 ml Tramadol HCl (Ultram) 50 - 100 mg PO TID PRN PRN Reason: Pain Last Admin: 08/26/19 23:32 Dose: 100 mg Discontinued Medications Aspirin (Aspirin) 324 mg PO ONETIME ONE Stop: 08/26/19 10:44 Last Admin: 08/26/19 10:56 Dose: 324 mg Heparin Sodium (Porcine) (Heparin Sodium) 5,880 units IVPUSH .BOLUS ONE Stop: 08/26/19 18:16 Last Admin: 08/26/19 18:30 Dose: 5,880 units Heparin Sodium (Porcine) (Heparin Sodium) 1,000 units IVPUSH .BOLUS ONE Stop: 08/27/19 01:05 Last Admin: 08/27/19 01:37 Dose: 1,000 units Heparin Sodium (Porcine) (Heparin Sodium) 1,000 units IVPUSH ONETIME ONE Stop: 08/27/19 07:08 Last Admin: 08/27/19 07:40 Dose: 1,000 units Heparin Sodium (Porcine) (Heparin Sodium) 1,000 units IVPUSH .BOLUS ONE Stop: 08/27/19 12:44 Last Admin: 08/27/19 13:39 Dose: 1,000 units Heparin Sodium/Sodium Chloride (Heparin-1/2ns 25,000 Units/500) 25,000 unit in 500 mls @ 23.52 mls/hr IV TITRATE [facility]; Protocol Heparin Sodium/Sodium Chloride (Heparin-1/2ns 25,000 Units/500) 25,000 unit in 500 mls @ 20 mls/hr IV TITRATE [facility]; Protocol Heparin Sodium/Sodium Chloride (Heparin-1/2ns 25,000 Units/500) 25,000 unit in 500 mls @ 19.6 mls/hr IV TITRATE [facility]; Protocol Stop: 08/27/19 20:00 Last Titration: 08/27/19 18:47 Dose: 16 units/kg/hr, 31.36 mls/hr Insulin Human NPH (Novolin N) 50 unit SUBCUT BID [facility] Last Admin: 08/27/19 01:06 Dose: Not Given Insulin Human NPH (Novolin N) 25 - 30 unit SUBCUT BID [facility] Ropinirole HCl (Requip) 0.5 mg PO DAILY [facility] Sodium Chloride (Saline Flush) 10 ml FLUSH ASDIRECTED PRN PRN Reason: Keep Vein Open Last Admin: 08/26/19 10:58 Dose: 10 ml - Exam Quality Assessment: Supplemental Oxygen General: Alert, Oriented Neck: Supple, Trachea Midline Lungs: Clear to Auscultation, Normal Respiratory Effort Cardiovascular: Regular Rate, Regular Rhythm GI/Abdominal Exam: Soft, Non-Tender, Other (J tube) Sepsis Event Note - Evaluation Sepsis Screening Result: No Definite Risk - Focused Exam Vital Signs: Vital Signs Temp Temp Pulse Pulse Resp BP BP 08/28/19 12:30 36.2 C 66 16 161/72 H 08/28/19 12:15 36.3 C 67 16 161/72 H 08/28/19 12:10 36.3 C 67 16 140/64 08/28/19 08:13 72 147/67 H 08/28/19 08:12 147/67 H 08/28/19 07:05 36.9 C 72 18 147/67 H 08/28/19 06:32 145/60 H 08/28/19 04:00 36.9 C 78 17 142/62 H Pulse Ox 08/28/19 12:30 94 L 08/28/19 12:15 94 L 08/28/19 12:10 97 08/28/19 08:13 08/28/19 08:12 08/28/19 07:05 95 08/28/19 06:32 08/28/19 04:00 95 Date Exam was Performed: 08/28/19 Time Exam was Performed: 12:42 - Problem List & Annotations (1) Chest pain SNOMED Code(s): 31916237 Code(s): R07.9 - CHEST PAIN, UNSPECIFIED Status: Acute Current Visit: Yes Qualifiers: Chest pain type: unspecified Qualified Code(s): R07.9 - Chest pain, unspecified (2) CAD (coronary artery disease) SNOMED Code(s): 74474214 Code(s): I25.10 - ATHSCL HEART DISEASE OF [place] CORONARY ARTERY W/O ANG PCTRS Status: Chronic Current Visit: Yes (3) Chronic pancreatitis SNOMED Code(s): 223655563 Code(s): K86.1 - OTHER CHRONIC PANCREATITIS Status: Chronic Current Visit : Yes Qualifiers: Pancreatitis type: biliary Qualified Code(s): K86.1 - Other chronic pancreatitis (4) ESRD on hemodialysis SNOMED Code(s): 549468556 Code(s): N18.6 - END STAGE RENAL DISEASE; Z99.2 - DEPENDENCE ON RENAL DIALYSIS Status: Chronic Current Visit: Yes (5) GERD (gastroesophageal reflux disease) SNOMED Code(s): 369070237 Code(s): K21.9 - GASTRO-ESOPHAGEAL REFLUX DISEASE WITHOUT ESOPHAGITIS Status: Chronic Current Visit: Yes (6) Gastroparesis due to secondary diabetes SNOMED Code(s): 8994976, 419129392 Code(s): E13.43 - OTH DIABETES MELLITUS W DIABETIC AUTONOMIC (POLY) NEUROPATHY Status: Chronic Current Visit: Yes (7) HLD (hyperlipidemia) SNOMED Code(s): 76711890 Code(s): E78.5 - HYPERLIPIDEMIA, UNSPECIFIED Status: Chronic Current Visit: Yes (8) Anemia SNOMED Code(s): 101850954 Code(s): D64.9 - ANEMIA, UNSPECIFIED Status: Acute Current Visit: Yes - Problem List Review Problem List Initiated/Reviewed/Updated: Yes - My Orders Last 24 Hours: My Active Orders 08/28/19 Echo Comp wo Cont [US] Routine - Plan Plan:: Assessment and Plan: 1. Chest pain, resolved: - Troponin trended down, no active chest pain, Patient has know Severe CAD, has a angiogram in past was recommended CABG, per patient he saw a project architect 6 -7 months back but wasnt deemd to be a good candidate for CABG, patient was given an option to be transferred to a tertiary care for possible cath but he denied further Cardiac work up as of now. States he doesn't want to go ahead with any intervention for now. Since patients troponin trended down and he is asymptomatic, i suspect it was a type 2 demand supply ischemia. start ASA, statin 2.Anemia: No active bleeding noted, will need 1 unit of PRBC to maintain Hb > 8.0 due to underling CAD. Recheck Hb later in evening 3. Nausea likely secondary to gastroparesis, resolved: - Will advance to regular diet, continue Protonix 40 mg IV and zofran prn. - Abd xray was unremarkable. 4. DM Type 2: - Monitor BS TID AC, home regimen of insulin. 5. Gastroparesis/j tube: - Consult Insurance Verifier to assist with tube feedings. 6. Past medical history of: HTN, HLD, chronic pancreatitis, ESRD - Will continue home medications. Due for Dialysis tomorrow 7. DVT prophylaxis: Patient on heparin drip. Likely dc today after transfusion or early AM rome.
[2019-08-28] MEDS ORDERED: Furosemide 40 MG/4 ML VIAL IVPUSH ONE (15:08)
--- NOTE | 2019-08-30 12:13 | PCM.DCSUM1 ---
Discharge Summary - Hospital Course Diagnosis: Stroke: No - Discharge Data Discharge Date: 08/28/19 Discharge Disposition: Home, Self-Care 01 Condition: Stable - Referral to Home Health Primary Care Physician: PCP None - Discharge Diagnosis/Problem(s) (1) Chest pain SNOMED Code(s): 78331794 ICD Code: R07.9 - CHEST PAIN, UNSPECIFIED Status: Acute Qualifiers: Chest pain type: unspecified Qualified Code(s): R07.9 - Chest pain, unspecified (2) CAD (coronary artery disease) SNOMED Code(s): 63806602 ICD Code: I25.10 - ATHSCL HEART DISEASE OF [place] CORONARY ARTERY W/O ANG PCTRS Status: Chronic (3) Chronic pancreatitis SNOMED Code(s): 963196229 ICD Code: K86.1 - OTHER CHRONIC PANCREATITIS Status: Chronic Qualifiers: Pancreatitis type: biliary Qualified Code(s): K86.1 - Other chronic pancreatitis (4) ESRD on hemodialysis SNOMED Code(s): 786128453 ICD Code: N18.6 - END STAGE RENAL DISEASE; Z99.2 - DEPENDENCE ON RENAL DIALYSIS Status: Chronic (5) GERD (gastroesophageal reflux disease) SNOMED Code(s): 976287199 ICD Code: K21.9 - GASTRO-ESOPHAGEAL REFLUX DISEASE WITHOUT ESOPHAGITIS Status: Chronic (6) Gastroparesis due to secondary diabetes SNOMED Code(s): 6148425, 868694735 ICD Code: E13.43 - OTH DIABETES MELLITUS W DIABETIC AUTONOMIC (POLY) NEUROPATHY Status: Chronic (7) HLD (hyperlipidemia) SNOMED Code(s): 98852325 ICD Code: E78.5 - HYPERLIPIDEMIA, UNSPECIFIED Status: Chronic (8) Anemia SNOMED Code(s): 191802814 ICD Code: D64.9 - ANEMIA, UNSPECIFIED Status: Acute - Patient Summary/Data Consults: Consultations 08/26/19 14:49 Consult to Easement Man [CONS] Routine - Patient Instructions Diet: Heart Healthy Diet Activity: As Tolerated Driving: May Drive Today Showering/Bathing: May Shower Wound/Incision Care: Keep Operative Site/Wound Site Clean and Dry Notify Provider of: Fever, Increased Pain, Swelling and Redness, Drainage, Nausea and/or Vomiting Other/Special Instructions: please fu with cardiology on outpatient basis - Discharge Plan *PRESCRIPTION DRUG MONITORING PROGRAM REVIEWED*: Not Applicable *COPY OF PRESCRIPTION DRUG MONITORING REPORT IN PATIENT MARQUES: Not Applicable Prescriptions/Med Rec: Aspirin 81 mg PO DAILY #30 tab.chew Home Medications: Home Meds Carvedilol [Coreg] 25 mg PO BID 08/13/19 [History] Docusate Sodium 100 mg PO BID 08/13/19 [History] Donepezil HCl 10 mg PO DAILY 08/13/19 [History] FLUoxetine HCl [Fluoxetine HCl] 40 mg PO DAILY 08/13/19 [History] Gabapentin [Neurontin] 200 mg PO DAILY 08/13/19 [History] Vit B Cmplx 3/Fa/Vit C/Biotin [Nilda-Anne Rx Tablet] 1 each PO DAILY 08/13/19 [ History] Zolpidem Tartrate 10 mg PO BEDTIME PRN 08/13/19 [History] amLODIPine Besylate [Norvasc] 10 mg PO DAILY 08/13/19 [History] atorvaSTATin [Lipitor] 40 mg PO BEDTIME 08/13/19 [History] hydrALAZINE [Apresoline] 25 mg PO TID 08/13/19 [History] rOPINIRole [Requip] 0.5 mg PO DAILY 08/13/19 [History] traMADol [Ultram] 50 - 100 mg PO TID PRN 08/13/19 [History] Acetaminophen [Tylenol] 325 mg PO ASDIRECTED PRN MDD THREE TIMES A WEEK [History] Calcium Carbonate [Tums] 1,500 mg PO BID 08/26/19 [History] Cinacalcet [Sensipar] 30 mg PO DAILY 08/26/19 [History] Darbepoetin Chema [Aranesp] 100 mcg IV ASDIRECTED MDD EACH Thursday08/26/19 [ History] Esomeprazole Magnesium [Nexium] 20 mg PO DAILY 08/26/19 [History] Furosemide [Lasix] 80 mg PO BID 08/26/19 [History] Insulin NPH Human Isophane [Novolin N Flexpen] 50 unit SQ BID 08/26/19 [History] Insulin Regular, Human [Novolin R Flexpen] 15 unit SQ DAILY PRN 08/26/19 [ History] Meclizine [Antivert] 25 mg PO BID 08/26/19 [History] Nitroglycerin 0.4 mg SL ASDIRECTED PRN 08/26/19 [History] Ondansetron [Zofran] 4 mg IV ASDIRECTED PRN MDD THREE TIMES A WEEK 08/26/19 [ History] Sevelamer Carbonate [Renvela] 800 mg PO TID 08/26/19 [History] paricalcitoL [Paricalcitol] 6 mcg IV ASDIRECTED MDD THREE TIMES A WEEK 08/26/19 [History] Aspirin 81 mg PO DAILY #30 tab.chew 08/28/19 [Rx] Patient Handouts: Nonspecific Chest Pain, Adult, [id number], Acetaminophen tablets or caplets Referrals: Vincent Carcamo MD [Physician] - 09/06/19 11:00 am - Patient Data Vitals - Most Recent: Last Vital Signs Temp 36.3 C 08/28/19 15:30 Pulse 62 08/28/19 15:30 Resp 17 08/28/19 15:30 BP 138/66 08/28/19 15:30 Pulse Ox 92 L 08/28/19 15:30 Weight - Most Recent: 98 kg Med Orders - Current: Current Medications Discontinued Medications Acetaminophen (Tylenol) 325 mg PO ASDIRECTED PRN PRN Reason: Pain/Fever Amlodipine Besylate (Norvasc) 10 mg PO DAILY [facility] Last Admin: 08/28/19 08:12 Dose: 10 mg Aspirin (Aspirin) 324 mg PO ONETIME ONE Stop: 08/26/19 10:44 Last Admin: 08/26/19 10:56 Dose: 324 mg Aspirin (Aspirin) 81 mg PO DAILY [facility] Last Admin: 08/28/19 08:14 Dose: 81 mg Atorvastatin Calcium (Lipitor) 40 mg PO BEDTIME [facility] Last Admin: 08/27/19 21:44 Dose: 40 mg Calcium Carbonate/Glycine (Tums) 1,500 mg PO BID [facility] Last Admin: 08/28/19 08:12 Dose: 1,500 mg Carvedilol (Coreg) 25 mg PO BID [facility] Last Admin: 08/28/19 08:13 Dose: 25 mg Donepezil HCl (Aricept) 10 mg PO DAILY [facility] Last Admin: 08/28/19 08:12 Dose: 10 mg Fluoxetine HCl (Prozac) 40 mg PO DAILY [facility] Last Admin: 08/28/19 08:13 Dose: 40 mg Furosemide (Lasix) 80 mg PO BID [facility] Last Admin: 08/28/19 08:14 Dose: 80 mg Furosemide (Lasix) 40 mg IVPUSH NOW ONE Stop: 08/28/19 15:09 Last Admin: 08/28/19 15:17 Dose: 40 mg Gabapentin (Neurontin) 200 mg PO DAILY [facility] Last Admin: 08/28/19 08:13 Dose: 200 mg Heparin Sodium (Porcine) (Heparin Sodium) 5,880 units IVPUSH .BOLUS ONE Stop: 08/26/19 18:16 Last Admin: 08/26/19 18:30 Dose: 5,880 units Heparin Sodium (Porcine) (Heparin Sodium) 1,000 units IVPUSH .BOLUS ONE Stop: 08/27/19 01:05 Last Admin: 08/27/19 01:37 Dose: 1,000 units Heparin Sodium (Porcine) (Heparin Sodium) 1,000 units IVPUSH ONETIME ONE Stop: 08/27/19 07:08 Last Admin: 08/27/19 07:40 Dose: 1,000 units Heparin Sodium (Porcine) (Heparin Sodium) 1,000 units IVPUSH .BOLUS ONE Stop: 08/27/19 12:44 Last Admin: 08/27/19 13:39 Dose: 1,000 units Hydralazine HCl (Apresoline) 25 mg PO TID [facility] Last Admin: 08/28/19 13:48 Dose: 25 mg Pantoprazole Sodium 40 mg/ (Sodium Chloride) 10 mls @ 300 mls/hr IV Q24H [facility] Last Admin: 08/28/19 12:34 Dose: 300 mls/hr Heparin Sodium/Sodium Chloride (Heparin-1/2ns 25,000 Units/500) 25,000 unit in 500 mls @ 23.52 mls/hr IV TITRATE [facility]; Protocol Heparin Sodium/Sodium Chloride (Heparin-1/2ns 25,000 Units/500) 25,000 unit in 500 mls @ 20 mls/hr IV TITRATE [facility]; Protocol Heparin Sodium/Sodium Chloride (Heparin-1/2ns 25,000 Units/500) 25,000 unit in 500 mls @ 19.6 mls/hr IV TITRATE [facility]; Protocol Stop: 08/27/19 20:00 Last Titration: 08/27/19 18:47 Dose: 16 units/kg/hr, 31.36 mls/hr Insulin Aspart (Novolog) 0 unit SUBCUT Q6H [facility]; Protocol Last Admin: 08/28/19 12:23 Dose: 1 unit Insulin Human NPH (Novolin N) 50 unit SUBCUT BID [facility] Last Admin: 08/27/19 01:06 Dose: Not Given Insulin Human NPH (Novolin N) 25 - 30 unit SUBCUT BID [facility] Insulin Human NPH (Novolin N) 25 - 30 unit SUBCUT BID [facility] Last Admin: 08/28/19 09:17 Dose: 25 unit Meclizine HCl (Antivert) 25 mg PO BID [facility] Last Admin: 08/28/19 08:13 Dose: 25 mg Nitroglycerin (Nitrostat) 0.4 mg SL Q5M PRN PRN Reason: Chest Pain Last Admin: 08/26/19 11:01 Dose: 0.4 mg Ondansetron HCl (Zofran) 4 mg IVPUSH Q4H PRN PRN Reason: Nausea Cinacalcet 30 Mg 1 each PO DAILY [facility] Last Admin: 08/28/19 08:15 Dose: Not Given Vit B Cmplx 3/Fa/Vit C/Biotin [Nilda-Anne Rx Tablet] 1 each PO DAILY [facility] Last Admin: 08/28/19 08:15 Dose: Not Given Zolpidem Tartrate 10 (Mg) 1 each PO BEDTIME PRN PRN Reason: Insomnia Ropinirole HCl (Requip) 0.5 mg PO DAILY [facility] Ropinirole HCl (Requip) 0.5 mg PO BEDTIME [facility] Last Admin: 08/27/19 21:45 Dose: 0.5 mg Sevelamer Carbonate (Renvela) 800 mg PO TID [facility] Last Admin: 08/28/19 13:51 Dose: 800 mg Sodium Chloride (Saline Flush) 10 ml FLUSH ASDIRECTED PRN PRN Reason: Keep Vein Open Last Admin: 08/26/19 10:58 Dose: 10 ml Sodium Chloride (Saline Flush) 2.5 ml FLUSH ASDIRECTED PRN PRN Reason: Keep Vein Open Last Admin: 08/26/19 10:58 Dose: 2.5 ml Tramadol HCl (Ultram) 50 - 100 mg PO TID PRN PRN Reason: Pain Last Admin: 08/26/19 23:32 Dose: 100 mg
--- NOTE | 2019-09-01 09:00 | ECHO ---
EXAM DATE: 08/26/19 PATIENT'S AGE: 54 The report can be seen in the patient's EMR (Electronic Medical Record) in the REPORTS section. The report has also been scanned into PACs. MICHELLE
== END 2019-08-28 16:45 | disposition home or self-care (01) ==
LOC: MW.ED 10:31 → MW.MS 11:41
PROVIDERS: ADMIT Internal Medicine; ATTEND Internal Medicine
DX: R07.9 Chest pain, unspecified (principal); R10.9 Unspecified abdominal pain; R11.2 Nausea with vomiting, unspecified; I25.10 Atherosclerotic heart disease of native coronary artery without angina pectoris; K86.1 Other chronic pancreatitis; K21.9 Gastro-esophageal reflux disease without esophagitis; E78.5 Hyperlipidemia, unspecified; E78.00 Pure hypercholesterolemia, unspecified; F41.9 Anxiety disorder, unspecified; F32.9 Major depressive disorder, single episode, unspecified; D61.818 Other pancytopenia; F01.50 Vascular dementia, unspecified severity, without behavioral disturbance, psychotic disturbance, mood disturbance, and anxiety; E11.43 Type 2 diabetes mellitus with diabetic autonomic (poly)neuropathy; K31.84 Gastroparesis; I12.0 Hypertensive chronic kidney disease with stage 5 chronic kidney disease or end stage renal disease; E11.40 Type 2 diabetes mellitus with diabetic neuropathy, unspecified; E11.22 Type 2 diabetes mellitus with diabetic chronic kidney disease; N18.6 End stage renal disease; D63.1 Anemia in chronic kidney disease; Z88.5 Allergy status to narcotic agent; Z79.82 Long term (current) use of aspirin; Z79.899 Other long term (current) drug therapy; Z93.4 Other artificial openings of gastrointestinal tract status; Z79.4 Long term (current) use of insulin; Z99.2 Dependence on renal dialysis
CPT/HCPCS: 36415; 36430; 71045; 74019; 80053; 81001; 82962; 83690; 83880; 84484; 85025; 85730; 86850; 86900; 86901; 86920; 86921; 86922; 93005; 93306; 96365; 96366; 96375; 96376; 99285; A9270; C9113; G0378; J1644; J1815; J1940; J7050; P9016

== ENCOUNTER 2020-04-04 09:46 | Emergency (ER) | payer MEDICARE, BC ==
--- NOTE | 2020-04-04 10:01 | EDM.PDOC ---
ED HPI GENERAL MEDICAL PROBLEM - General Stated Complaint: CHEST PAIN Time Seen by Provider: 04/04/20 09:47 Source of Information: Reports: Patient History Limitations: Reports: No Limitations - History of Present Illness INITIAL COMMENTS - FREE TEXT/NARRATIVE: 54-year-old male past medical history hypertension, diabetes, hyperlipidemia, coronary artery disease without stents, GERD, end-stage renal disease last dialysis today, chronic pancreatitis with PEG tube, vascular dementia with mild cognitive impairment presents for chest pain. Patient was at dialysis this morning, received about 2-1/2 hours, developed chest pain in his substernal chest without radiation. He also did feel some shortness of breath. He notes chronic fatigue but does feel tired this morning. He has had a cough and URI-l neto symptoms but states that this is for a very long time and unchanged. He notes that he was recently tested for Covid and was negative. Denies fevers. He was given nitroglycerin, and states that the pain did improve. He says the pain now is better but still present. He notes cath a long time ago without stents placed and notes admit here in August 2019 for elevated troponin and was suppose to f/u in [place] for outpatient cardiac cath but did not follow up 2/2 transportation issues. Chest Pain Score (Numeric/FACES): 2 - Related Data Allergies Allergy/AdvReac Type Severity Reaction Status Date / Time meperidine [From Demerol] Allergy Hypertensio Verified 04/04/20 10:02 n morphine Allergy Hypertensio Verified 04/04/20 10:02 n Home Meds: Home Meds Docusate Sodium 100 mg PO BID 08/13/19 [History] Donepezil HCl 10 mg PO DAILY 08/13/19 [History] FLUoxetine HCl [Fluoxetine HCl] 40 mg PO DAILY 08/13/19 [History] Gabapentin [Neurontin] 200 mg PO DAILY 08/13/19 [History] Vit B Cmplx 3/Fa/Vit C/Biotin [Nilda-Anne Rx Tablet] 1 each PO DAILY 08/13/19 [History] Zolpidem Tartrate 10 mg PO BEDTIME PRN 08/13/19 [History] amLODIPine Besylate [Norvasc] 10 mg PO DAILY 08/13/19 [History] atorvaSTATin [Lipitor] 40 mg PO BEDTIME 08/13/19 [History] carvediloL [Coreg] 25 mg PO BID 08/13/19 [History] hydrALAZINE [Apresoline] 25 mg PO TID 08/13/19 [History] rOPINIRole [Requip] 0.5 mg PO DAILY 08/13/19 [History] traMADol [Ultram] 50 - 100 mg PO TID PRN 08/13/19 [History] Acetaminophen [Tylenol] 325 mg PO ASDIRECTED PRN MDD THREE TIMES A WEEK 08/26/19 [History] Calcium Carbonate [Tums] 1,500 mg PO BID 08/26/19 [History] Cinacalcet [Sensipar] 30 mg PO DAILY 08/26/19 [History] Darbepoetin Chema [Aranesp] 100 mcg IV ASDIRECTED MDD EACH Thursday08/26/19 [History] Esomeprazole Magnesium [Nexium] 20 mg PO DAILY 08/26/19 [History] Furosemide [Lasix] 80 mg PO BID 08/26/19 [History] Insulin NPH Human Isophane [Novolin N Flexpen] 50 unit SQ BID 08/26/19 [History] Insulin Regular, Human [Novolin R Flexpen] 15 unit SQ DAILY PRN 08/26/19 [History] Meclizine [Antivert] 25 mg PO BID 08/26/19 [History] Nitroglycerin 0.4 mg SL ASDIRECTED PRN 08/26/19 [History] Ondansetron [Zofran] 4 mg IV ASDIRECTED PRN MDD THREE TIMES A WEEK 08/26/19 [History] Sevelamer Carbonate [Renvela] 800 mg PO TID 08/26/19 [History] paricalcitoL [Paricalcitol] 6 mcg IV ASDIRECTED MDD THREE TIMES A WEEK 08/26/19 [History] Aspirin 81 mg PO DAILY #30 tab.chew 08/28/19 [Rx] Past Medical History Cardiovascular History: Reports: CAD, Congenital Septal Defect (ventricular septal defect), High Cholesterol, Hypertension, Other (See Below) (Cardiomegaly). Denies: Afib, SC, Stents Other Cardiovascular History: ventricular septal defect Respiratory History: Reports: Bronchitis, Recurrent, Pneumonia, Recurrent Gastrointestinal History: Reports: GERD, Pancreatitis, Other (See Below) (gastroparesis) Genitourinary History: Reports: Renal Calculus, Other (See Below) Other Genitourinary History: end stage renal failure on HD Musculoskeletal History: Reports: Arthritis Neurological History: Reports: Migraines, Neuropathy, Diabetic, Other (See Below) Other Neuro History: mild cognitive impairment, vascular dementia, restless leg syndrome Psychiatric History: Reports: Anxiety, Depression Endocrine/Metabolic History: Reports: Diabetes, Type II Other Endocrine/Metabolic History: insulin dependent - Infectious Disease History Infectious Disease History: Reports: Chicken Pox, Measles - Past Surgical History HEENT Surgical History: Reports: Adenoidectomy, Eye Surgery GI Surgical History: Reports: Cholecystectomy, Colonoscopy, EGD Social & Family History - Family History Family Medical History: No Pertinent Family History - Caffeine Use Caffeine Use: Reports: Coffee - Living Situation & Occupation Living situation: Reports: Occupation: Disabled ED ROS GENERAL - Review of Systems Review Of Systems: Comprehensive ROS is negative, except as noted in HPI. ED EXAM, GENERAL - Physical Exam Exam: See Below Exam Limited By: No Limitations General Appearance: Alert, WD/WN, No Apparent Distress, Other (chronically ill appearing, tired but alert/oriented and responding to questions appropriately) Throat/Mouth: Normal Voice, No Airway Compromise Head: Atraumatic, Normocephalic Neck: Normal Inspection Respiratory/Chest: No Respiratory Distress, Lungs Clear, Normal Breath Sounds, No Accessory Muscle Use Cardiovascular: Normal Peripheral Pulses, Regular Rate, Rhythm, Other (mild b/l pitting edema) GI/Abdominal: Soft, Non-Tender, Other (PEG tube in place) Neurological: Alert Psychiatric: Normal Affect, Normal Mood Skin Exam: Warm, Dry, Intact, Pallor #1 Interpretation EKG Date: 04/04/20 Time: 09:54 Rhythm: NSR Rate (Beats/Min): 69 [place]: Normal P-Wave: Present QRS: Normal ST-T: Normal QT: Prolonged (526) MI/PQ Interval: 171 EKG Interpretation Comments: no ischemic changes Course - Vital Signs Last Recorded V/S: Last Vital Signs Temp 97.3 F 04/04/20 09:58 Pulse 70 04/04/20 09:58 Resp 18 04/04/20 09:58 BP 174/83 H 04/04/20 09:58 Pulse Ox 93 L 04/04/20 11:20 - Orders/Labs/Meds Orders: Active Orders 24 hr Category Date Time Status Cardiac Monitoring [RC] . DIRECTED Care 04/04/20 10:02 Active EKG Documentation Completion [RC] STAT Care 04/04/20 10:02 Active Pulse Oximetry [RC] ASDIRECTED Care 04/04/20 10:02 Active CORONAVIRUS COVID-19 MATEO [MOLEC] Stat Lab 04/04/20 12:44 Received Sodium Chloride 0.9% [Saline Flush] Med 04/04/20 10:02 Active 10 ml FLUSH ASDIRECTED PRN Sodium Chloride 0.9% [Saline Flush] Med 04/04/20 10:02 Active 2.5 ml FLUSH ASDIRECTED PRN Saline Lock Insert [OM.PC] Stat Oth 04/04/20 10:02 Ordered Medication Orders Sodium Chloride (Saline Flush) 10 ml FLUSH ASDIRECTED PRN PRN Reason: Keep Vein Open Sodium Chloride (Saline Flush) 2.5 ml FLUSH ASDIRECTED PRN PRN Reason: Keep Vein Open Labs: Laboratory Tests 04/04/20 04/04/20 04/04/20 Range/Units 10:02 10:02 10:02 WBC 2.24 L (4.0-11.0) K/uL RBC 3.37 L (4.50-5.90) M/uL Hgb 10.1 L (13.0-17.0) g/dL Hct 31.4 L (38.0-50.0) % MCV 93.2 (80.0-98.0) fL MCH 30.0 (27.0-32.0) pg MCHC 32.2 (31.0-37.0) g/dL RDW Std Deviation 54.2 (28.0-62.0) fl RDW Coeff of Braulio 16 H (11.0-15.0) % Plt Count 72 L (150-400) K/uL MPV 9.80 (7.40-12.00) fL Neut % (Auto) 78.2 (48.0-80.0) % Lymph % (Auto) 11.2 L (16.0-40.0) % Clinch % (Auto) 7.1 (0.0-15.0) % Eos % (Auto) 3.1 (0.0-7.0) % Baso % (Auto) 0.4 (0.0-1.5) % Neut # (Auto) 1.8 (1.4-5.7) K/uL Lymph # (Auto) 0.3 L (0.6-2.4) K/uL Clinch # (Auto) 0.2 (0.0-0.8) K/uL Eos # (Auto) 0.1 (0.0-0.7) K/uL Baso # (Auto) 0.0 (0.0-0.1) K/uL Nucleated RBC % 0.0 /100WBC Nucleated RBCs # 0 K/uL INR APTT (18.6-31.3) SEC ABG pH (7.35-7.45) ABG pCO2 (35-45) mmHG ABG pO2 (75-100) mmHG ABG HCO3 (22-26) mEq/L ABG Total CO2 ABG Base Excess (-2.0-2.0) Lactate 1.2 (0.20-2.00) mmol/L Sodium 135 L (136-148) mmol/L Potassium 3.6 (3.5-5.1) mmol/L Chloride 97 L (98-107) mmol/L Carbon Dioxide 26.9 (21.0-32.0) mmol/L BUN 26 H (7.0-18.0) mg/dL Creatinine 3.9 H (0.8-1.3) mg/dL Est Cr Clr Drug Dosing 22.62 mL/min Estimated GFR (MDRD) 16.3 ml/min Glucose 334 H (74-106) mg/dL Calcium 9.3 (8.5-10.1) mg/dL Magnesium 1.7 L (1.8-2.4) mg/dL Total Bilirubin 2.4 H (0.2-1.0) mg/dL AST 14 L (15-37) IU/L ALT 22 (14-63) IU/L Alkaline Phosphatase 160 H (46-116) U/L Troponin I < 0.050 (0.000-0.056) ng/mL B-Natriuretic Peptide (<100) PG/ML Total Protein 7.6 (6.4-8.2) g/dL Albumin 4.0 (3.4-5.0) g/dL Globulin 3.6 (2.6-4.0) g/dL Albumin/Globulin Ratio 1.1 (0.9-1.6) 04/04/20 04/04/20 04/04/20 Range/Units 10:02 10:02 11:07 WBC (4.0-11.0) K/uL RBC (4.50-5.90) M/uL Hgb (13.0-17.0) g/dL Hct (38.0-50.0) % MCV (80.0-98.0) fL MCH (27.0-32.0) pg MCHC (31.0-37.0) g/dL RDW Std Deviation (28.0-62.0) fl RDW Coeff of Braulio (11.0-15.0) % Plt Count (150-400) K/uL MPV (7.40-12.00) fL Neut % (Auto) (48.0-80.0) % Lymph % (Auto) (16.0-40.0) % Clinch % (Auto) (0.0-15.0) % Eos % (Auto) (0.0-7.0) % Baso % (Auto) (0.0-1.5) % Neut # (Auto) (1.4-5.7) K/uL Lymph # (Auto) (0.6-2.4) K/uL Clinch # (Auto) (0.0-0.8) K/uL Eos # (Auto) (0.0-0.7) K/uL Baso # (Auto) (0.0-0.1) K/uL Nucleated RBC % /100WBC Nucleated RBCs # K/uL INR 1.25 APTT 24.6 (18.6-31.3) SEC ABG pH 7.396 (7.35-7.45) ABG pCO2 45 (35-45) mmHG ABG pO2 210 H (75-100) mmHG ABG HCO3 27 H (22-26) mEq/L ABG Total CO2 25.9 ABG Base Excess 2.2 H (-2.0-2.0) Lactate (0.20-2.00) mmol/L Sodium (136-148) mmol/L Potassium (3.5-5.1) mmol/L Chloride (98-107) mmol/L Carbon Dioxide (21.0-32.0) mmol/L BUN (7.0-18.0) mg/dL Creatinine (0.8-1.3) mg/dL Est Cr Clr Drug Dosing mL/min Estimated GFR (MDRD) ml/min Glucose (74-106) mg/dL Calcium (8.5-10.1) mg/dL Magnesium (1.8-2.4) mg/dL Total Bilirubin (0.2-1.0) mg/dL AST (15-37) IU/L ALT (14-63) IU/L Alkaline Phosphatase (46-116) U/L Troponin I (0.000-0.056) ng/mL B-Natriuretic Peptide 3178 H (<100) PG/ML Total Protein (6.4-8.2) g/dL Albumin (3.4-5.0) g/dL Globulin (2.6-4.0) g/dL Albumin/Globulin Ratio (0.9-1.6) 04/04/20 Range/Units 13:01 WBC (4.0-11.0) K/uL RBC (4.50-5.90) M/uL Hgb (13.0-17.0) g/dL Hct (38.0-50.0) % MCV (80.0-98.0) fL MCH (27.0-32.0) pg MCHC (31.0-37.0) g/dL RDW Std Deviation (28.0-62.0) fl RDW Coeff of Braulio (11.0-15.0) % Plt Count (150-400) K/uL MPV (7.40-12.00) fL Neut % (Auto) (48.0-80.0) % Lymph % (Auto) (16.0-40.0) % Clinch % (Auto) (0.0-15.0) % Eos % (Auto) (0.0-7.0) % Baso % (Auto) (0.0-1.5) % Neut # (Auto) (1.4-5.7) K/uL Lymph # (Auto) (0.6-2.4) K/uL Clinch # (Auto) (0.0-0.8) K/uL Eos # (Auto) (0.0-0.7) K/uL Baso # (Auto) (0.0-0.1) K/uL Nucleated RBC % /100WBC Nucleated RBCs # K/uL INR APTT (18.6-31.3) SEC ABG pH (7.35-7.45) ABG pCO2 (35-45) mmHG ABG pO2 (75-100) mmHG ABG HCO3 (22-26) mEq/L ABG Total CO2 ABG Base Excess (-2.0-2.0) Lactate (0.20-2.00) mmol/L Sodium (136-148) mmol/L Potassium (3.5-5.1) mmol/L Chloride (98-107) mmol/L Carbon Dioxide (21.0-32.0) mmol/L BUN (7.0-18.0) mg/dL Creatinine (0.8-1.3) mg/dL Est Cr Clr Drug Dosing mL/min Estimated GFR (MDRD) ml/min Glucose (74-106) mg/dL Calcium (8.5-10.1) mg/dL Magnesium (1.8-2.4) mg/dL Total Bilirubin (0.2-1.0) mg/dL AST (15-37) IU/L ALT (14-63) IU/L Alkaline Phosphatase (46-116) U/L Troponin I < 0.050 (0.000-0.056) ng/mL B-Natriuretic Peptide (<100) PG/ML Total Protein (6.4-8.2) g/dL Albumin (3.4-5.0) g/dL Globulin (2.6-4.0) g/dL Albumin/Globulin Ratio (0.9-1.6) Meds: Medications Generic Name Dose Route Start Last Admin Trade Name Freq PRN Reason Stop Dose Admin Sodium Chloride 10 ml 04/04/20 10:02 Saline Flush FLUSH ASDIRECTED PRN Keep Vein Open Sodium Chloride 2.5 ml 04/04/20 10:02 Saline Flush FLUSH ASDIRECTED PRN Keep Vein Open Discontinued Medications Generic Name Dose Route Start Last Admin Trade Name Freq PRN Reason Stop Dose Admin Aspirin 324 mg 04/04/20 10:02 04/04/20 10:26 Aspirin PO 04/04/20 10:03 324 mg ONETIME ONE Administration - Re-Assessments/Exams Free Text/Narrative Re-Assessment/Exam: 04/04/20 10:01 Patient presents with chest pain. EKG is nonischemic. Will get labs, chest x- ray, will give aspirin. 04/04/20 11:04 Patient had desaturation event while falling asleep to 60s; put on NRB w/ improvement in saturations 04/04/20 12:31 Patient's initial set of lab work is normal. He was on a nonrebreather very briefly, but is tolerating nasal cannula. ABG is unremarkable. Had long discussion with patient regarding disposition. Offered transfer to a larger hospital that has cardiac catheterization capabilities. Patient declines at this time. He is willing to stay for a second troponin at 1 PM. We will follow up results and disposition accordingly. 04/04/20 13:37 Repeat troponin is negative. Will discharge patient with cardiology follow-up next week. Return precautions were stressed again. Departure - Departure Time of Disposition: 13:38 Disposition: Home, Self-Care 01 Condition: Good, Fair Clinical Impression: Chest pain Qualifiers: Chest pain type: unspecified Qualified Code(s): R07.9 - Chest pain, unspecified - Discharge Information Instructions: Nonspecific Chest Pain, Adult, [id number] Additional Instructions: The following information is given to patients seen in the emergency department who are being discharged to home. This information is to outline your options for follow-up care. We provide all patients seen in our emergency department with a follow-up referral. The need for follow-up, as well as the timing and circumstances, are variable depending upon the specifics of your emergency department visit. If you don't have a primary care physician on staff, we will provide you with a referral. We always advise you to contact your personal physician following an emergency department visit to inform them of the circumstance of the visit and for follow-up with them and/or the need for any referrals to a consulting specialist. The emergency department will also refer you to a specialist when appropriate. This referral assures that you have the opportunity for follow-up care with a specialist. All of these measure are taken in an effort to provide you with optimal care, which includes your follow-up. Under all circumstances we always encourage you to contact your private physician who remains a resource for coordinating your care. When calling for follow-up care, please make the office aware that this follow-up is from your recent emergency room visit. If for any reason you are refused follow-up, please contact the [facility] Emergency Department at and asked to speak to the emergency department charge nurse. Please follow up with your primary care physician. If you do not have a primary care physician, see below: [facility] [address] [place] [address] My [facility] [address], [place] [id number] Sepsis Event Note (ED) - Focused Exam Vital Signs: Vital Signs Temp Pulse Resp BP Pulse Ox 04/04/20 11:20 93 L 04/04/20 11:10 100 04/04/20 11:05 60 L 04/04/20 09:58 97.3 F 70 18 174/83 H 94 L - My Orders Last 24 Hours: My Active Orders 04/04/20 10:02 Cardiac Monitoring [RC] . DIRECTED EKG Documentation Completion [RC] STAT Pulse Oximetry [RC] ASDIRECTED Sodium Chloride 0.9% [Saline Flush] 10 ml FLUSH ASDIRECTED PRN Sodium Chloride 0.9% [Saline Flush] 2.5 ml FLUSH ASDIRECTED PRN Saline Lock Insert [OM.PC] Stat 04/04/20 12:44 CORONAVIRUS COVID-19 MATEO [MOLEC] Stat - Assessment/Plan Last 24 Hours: My Active Orders 04/04/20 10:02 Cardiac Monitoring [RC] . DIRECTED EKG Documentation Completion [RC] STAT Pulse Oximetry [RC] ASDIRECTED Sodium Chloride 0.9% [Saline Flush] 10 ml FLUSH ASDIRECTED PRN Sodium Chloride 0.9% [Saline Flush] 2.5 ml FLUSH ASDIRECTED PRN Saline Lock Insert [OM.PC] Stat 04/04/20 12:44 CORONAVIRUS COVID-19 MATEO [MOLEC] Stat
[2020-04-04] MEDS ORDERED: Sodium Chloride 0.9% 2.5 ML Syringe FLUSH PRN (10:02)
[2020-04-04] MEDS ORDERED: Sodium Chloride 0.9% 10 ML Syringe FLUSH PRN (10:02)
[2020-04-04] MEDS ORDERED: Aspirin 81 MG Tab.Chew PO ONE (10:02)
--- NOTE | 2020-04-04 10:23 | CR ---
INDICATION: Chest pain COMPARISON: August 26, 2019 TECHNIQUE: Single-view portable chest radiograph FINDINGS: TUBES AND LINES: None. HEART AND MEDIASTINUM: Enlarged heart. LUNGS AND PLEURAL SPACES: Mild diffuse bilateral lung findings with differential considerations primarily between edema or viral pneumonia.The pleural spaces are unremarkable. OSSEOUS STRUCTURES: Age-appropriate appearance. No acute focal finding. IMPRESSION: 1. Enlarged heart. This appearance is unchanged 2. Mild diffuse bilateral lung findings with differential considerations primarily between edema or viral pneumonia. No pleural effusion or pneumothorax. Dictated by Vishnu Yeh MD @ Apr 04 2020 10:20AM Signed by Dr. Vishnu Yeh @ Apr 04 2020 10:22AM
[2020-04-04 10:31] LABS: BLOOD UREA NITROGEN,BUN 26 mg/dL (7.0-18.0); CARBON DIOXIDE,CO2 26.9 mmol/L (21.0-32.0); CHLORIDE,CL 97 mmol/L (98-107); GLUCOSE RANDOM 334 mg/dL (74-106); POTASSIUM,K 3.6 mmol/L (3.5-5.1); SODIUM,NA 135 mmol/L (136-148)
== END 2020-04-04 13:51 | disposition home or self-care (01) ==
LOC: MW.ED 09:46
DX: R07.9 Chest pain, unspecified (principal); I25.10 Atherosclerotic heart disease of native coronary artery without angina pectoris; E78.00 Pure hypercholesterolemia, unspecified; K21.9 Gastro-esophageal reflux disease without esophagitis; E11.40 Type 2 diabetes mellitus with diabetic neuropathy, unspecified; F41.9 Anxiety disorder, unspecified; F32.9 Major depressive disorder, single episode, unspecified; I12.0 Hypertensive chronic kidney disease with stage 5 chronic kidney disease or end stage renal disease; N18.6 End stage renal disease; F03.90 Unspecified dementia, unspecified severity, without behavioral disturbance, psychotic disturbance, mood disturbance, and anxiety; G25.81 Restless legs syndrome; M19.90 Unspecified osteoarthritis, unspecified site; E11.22 Type 2 diabetes mellitus with diabetic chronic kidney disease; E78.5 Hyperlipidemia, unspecified; Z99.2 Dependence on renal dialysis; Z88.5 Allergy status to narcotic agent; Z79.4 Long term (current) use of insulin; Z79.899 Other long term (current) drug therapy; Z20.828 Contact with and (suspected) exposure to other viral communicable diseases
CPT/HCPCS: 36415; 36600; 71045; 80053; 82803; 83605; 83735; 83880; 84484; 85025; 85610; 85730; 93005; 99285; A9270; U0002; 93010; 99283

== ENCOUNTER 2020-07-02 10:33 | Emergency (ER) | payer MEDICARE, BC ==
[2020-07-02] MEDS ORDERED: Sodium Chloride 0.9% 10 ML Syringe FLUSH PRN (10:42)
[2020-07-02] MEDS ORDERED: Sodium Chloride 0.9% 2.5 ML Syringe FLUSH PRN (10:42)
--- NOTE | 2020-07-02 10:51 | EDM.PDOC ---
ED HPI GENERAL MEDICAL PROBLEM - General Chief Complaint: General Stated Complaint: EMS ARRIVAL Time Seen by Provider: 07/02/20 10:33 - History of Present Illness INITIAL COMMENTS - FREE TEXT/NARRATIVE: 54-year-old male with a history of diabetes and gastroparesis he eats orally and via G-tube which is been in for many years. He has a history of end-stage renal disease and is on HD Thursday. Patient presents with a number of complaints. 1 week ago he stubbed his left great toe hard he had some significant bleeding and it took quite a while to stop. Since then he has had significant discomfort and pain in the left foot. He had significant cramping during dialysis 3 days ago when he got home he was very fatigued and tired and he has basically been resting at home and has not had much to eat or drink since then. This morning he was supposed to have a dialysis session he felt quite weak and unwell he attempted to get up but felt unwell noted that his front door was frozen shut and so did not go to dialysis. Prior to arrival the patient again tried to leave his home and injured his right shoulder trying to open his frozen front door. He complains now of nausea and vomiting but no diarrhea no severe abdominal pain some mild generalized chest discomfort associated with profound weakness and lack of energy. He also reports significant pain on the left foot. The left foot pain worsens with ambulation he denies associated fevers. Generalized Pain Score (Numeric/FACES): 7 - Related Data Allergies Allergy/AdvReac Type Severity Reaction Status Date / Time meperidine [From Demerol] Allergy Hypertensio Verified 07/02/20 10:36 n morphine Allergy Hypertensio Verified 07/02/20 10:36 n Home Meds: Home Meds Apixaban [Eliquis] 1 tab PO BID 07/02/20 [History] Aspirin 81 mg PO DAILY 07/02/20 [History] Clopidogrel [Plavix] 75 mg PO DAILY 07/02/20 [History] Donepezil HCl 10 mg PO DAILY 07/02/20 [History] FLUoxetine HCl [Fluoxetine HCl] 40 mg PO DAILY 07/02/20 [History] Furosemide [Lasix] 80 mg PO BID 07/02/20 [History] Gabapentin [Neurontin] 2 tab PO BEDTIME 07/02/20 [History] Isosorbide Mononitrate [Isosorbide Mononitrate ER] 60 mg PO DAILY 07/02/20 [History] Nitroglycerin [Nitrostat] 0.4 mg SL ASDIRECTED 07/02/20 [History] Pantoprazole [ProTONIX] 40 mg PO DAILY 07/02/20 [History] Sevelamer Carbonate [Renvela] 800 mg PO DAILY 07/02/20 [History] Valsartan 80 mg PO DAILY 07/02/20 [History] Zolpidem Tartrate 10 mg PO BEDTIME 07/02/20 [History] amLODIPine Besylate [Amlodipine Besylate] 10 mg PO BEDTIME 07/02/20 [History] atorvaSTATin [Lipitor] 40 mg PO BEDTIME 07/02/20 [History] carvediloL [Carvedilol] 25 mg PO BID 07/02/20 [History] hydrALAZINE [Apresoline] 25 mg PO TID 07/02/20 [History] rOPINIRole HCl [Requip] 0.5 mg PO BEDTIME 07/02/20 [History] traMADol HCl [Tramadol HCl] 50 mg PO BID 07/02/20 [History] Past Medical History Cardiovascular History: Reports: CAD, Congenital Septal Defect, High Cholesterol, Hypertension, Other (See Below) Other Cardiovascular History: ventricular septal defect Respiratory History: Reports: Bronchitis, Recurrent, Pneumonia, Recurrent Gastrointestinal History: Reports: GERD, Pancreatitis, Other (See Below) Genitourinary History: Reports: Renal Calculus, Other (See Below) Other Genitourinary History: end stage renal failure on HD Musculoskeletal History: Reports: Arthritis Neurological History: Reports: Migraines, Neuropathy, Diabetic, Other (See Below) Other Neuro History: mild cognitive impairment, vascular dementia, restless leg syndrome Psychiatric History: Reports: Anxiety, Depression Endocrine/Metabolic History: Reports: Diabetes, Type II Other Endocrine/Metabolic History: insulin dependent - Infectious Disease History Infectious Disease History: Reports: Chicken Pox, Measles - Past Surgical History HEENT Surgical History: Reports: Adenoidectomy, Eye Surgery GI Surgical History: Reports: Cholecystectomy, Colonoscopy, EGD Social & Family History - Family History Family Medical History: No Pertinent Family History - Tobacco Use Tobacco Use Status *Q: Never Tobacco User - Caffeine Use Caffeine Use: Reports: None - Recreational Drug Use Recreational Drug Use: No - Living Situation & Occupation Living situation: Reports: Occupation: Disabled ED ROS GENERAL - Review of Systems Review Of Systems: See Below Free Text/Narrative/Comment: General: Per HPI Skin: No rash. Eyes: No vision problems. ENT: No sore throat. Neck: No neck stiffness. Respiratory: No shortness of breath. Cardiac: Per HPI Gastrointestinal: Per HPI Musculoskeletal: Per HPI Neurologic: No headache. ED EXAM, GENERAL - Physical Exam Exam: See Below Free Text/Narrative:: General Appearance: No acute distress, appears comfortable Skin: No rash HEENT: Normocephalic/atraumatic, sclera anicteric, mucous membranes moist Neck: Normal range of motion Chest and Lungs: Bilateral breath sounds, clear to auscultation Cardiovascular: Regular rate and rhythm, significant blowing systolic murmur, no lower extremity edema intact distal pulses Abdomen: Soft, non-tender, button style G-tube in the left abdomen without swelling drainage discharge or erythema Musculoskeletal: The left great toe has significant swelling and ecchymosis there is dried blood at the base of the nail the nail appears to be seated appropriately and I see no fracture of the nail plate there is no subungual hematoma there is significant tenderness there is some swelling and warm erythema that tracks up to the level of the midfoot and a more faint line of erythema tracking up the dorsal foot that could represent very early lymphangitic spread there is no crepitus there is no tenderness or swelling of the ankle joint there is no calf swelling Neurologic: Awake, alert, no obvious deficits, moving all extremities Psychiatric: Appropriate, cooperative #1 Interpretation EKG Date: 07/02/20 Time: 10:55 EKG Interpretation Comments: EKG demonstrates an atrially paced rhythm with a rate of 63 there is a nonspecific intraventricular conduction delay there is no significant T wave abnormality or repolarization abnormality that would suggest ischemia Course - Vital Signs Last Recorded V/S: Last Vital Signs Temp 97.6 F 07/02/20 10:36 Pulse 72 07/02/20 10:36 Resp 18 07/02/20 10:36 BP 128/55 L 07/02/20 10:36 Pulse Ox 98 07/02/20 10:36 - Orders/Labs/Meds Orders: Active Orders 24 hr Category Date Time Status EKG Documentation Completion [RC] STAT Care 07/02/20 10:42 Active COVID-19/FLU A+B [MOLEC] Stat Lab 07/02/20 12:00 Ordered CULTURE BLOOD [BC] Stat Lab 07/02/20 12:07 Ordered CULTURE BLOOD [BC] Stat Lab 07/02/20 12:07 Ordered PROCALCITONIN [REF] Stat Lab 07/02/20 10:59 Received Dextrose 50% in Water Med 07/02/20 12:01 Active 50 ml IV ASDIRECTED PRN Glucagon,Human Recombinant [GlucaGen] Med 07/02/20 12:01 Active 1 mg IM ASDIRECTED PRN Sodium Chloride 0.9% [Saline Flush] Med 07/02/20 10:42 Active 10 ml FLUSH ASDIRECTED PRN Sodium Chloride 0.9% [Saline Flush] Med 07/02/20 10:42 Active 2.5 ml FLUSH ASDIRECTED PRN ceFAZolin [Ancef 1 GM/50 ML] 1 gm Med 07/02/20 12:05 Active Premix Bag 1 bag IV ONETIME Blood Culture x2 Reflex Set [OM.PC] Stat Oth 07/02/20 12:07 Ordered DME for Discharge [COMM] Stat Oth 07/02/20 12:15 Ordered Saline Lock Insert [OM.PC] Stat Oth 07/02/20 10:42 Ordered Medication Orders Dextrose/Water (Dextrose 50% In Water) 50 ml IV ASDIRECTED PRN PRN Reason: Hypoglycemia Glucagon (Glucagen) 1 mg IM ASDIRECTED PRN PRN Reason: Hypoglycemia Cefazolin Sodium/Dextrose 1 gm (/ Premix) 50 mls @ 100 mls/hr IV ONETIME ONE Stop: 07/02/20 12:34 Last Admin: 07/02/20 12:10 Dose: 100 mls/hr Documented by: [id number] Sodium Chloride (Saline Flush) 10 ml FLUSH ASDIRECTED PRN PRN Reason: Keep Vein Open Last Admin: 07/02/20 10:54 Dose: 10 ml Documented by: [email or web address] Sodium Chloride (Saline Flush) 2.5 ml FLUSH ASDIRECTED PRN PRN Reason: Keep Vein Open Last Admin: 07/02/20 10:54 Dose: 2.5 ml Documented by: [email or web address] Labs: Laboratory Tests 07/02/20 07/02/20 07/02/20 Range/Units 10:54 10:59 10:59 WBC 5.23 (4.0-11.0) K/uL RBC 2.96 L (4.50-5.90) M/uL Hgb 9.2 L (13.0-17.0) g/dL Hct 28.3 L (38.0-50.0) % MCV 95.6 (80.0-98.0) fL MCH 31.1 (27.0-32.0) pg MCHC 32.5 (31.0-37.0) g/dL RDW Std Deviation 53.6 (28.0-62.0) fl RDW Coeff of Braulio 15 (11.0-15.0) % Plt Count 85 L (150-400) K/uL MPV 10.50 (7.40-12.00) fL Neut % (Auto) 77.8 (48.0-80.0) % Lymph % (Auto) 12.8 L (16.0-40.0) % [place] % (Auto) 9.0 (0.0-15.0) % Eos % (Auto) 0.2 (0.0-7.0) % Baso % (Auto) 0.2 (0.0-1.5) % Neut # (Auto) 4.1 (1.4-5.7) K/uL Lymph # (Auto) 0.7 (0.6-2.4) K/uL [place] # (Auto) 0.5 (0.0-0.8) K/uL Eos # (Auto) 0.0 (0.0-0.7) K/uL Baso # (Auto) 0.0 (0.0-0.1) K/uL Nucleated RBC % 0.0 /100WBC Nucleated RBCs # 0 K/uL ESR 64 H (0-19) mm/hr Sodium 126 L (136-148) mmol/L Potassium 6.6 H (3.5-5.1) mmol/L Chloride 91 L (98-107) mmol/L Carbon Dioxide 20.4 L (21.0-32.0) mmol/L BUN 80 H (7.0-18.0) mg/dL Creatinine 11.1 H (0.8-1.3) mg/dL Est Cr Clr Drug Dosing 7.95 mL/min Estimated GFR (MDRD) 4.9 ml/min Glucose 301 H (74-106) mg/dL Calcium 7.1 L (8.5-10.1) mg/dL Magnesium 2.0 (1.8-2.4) mg/dL Total Bilirubin 0.9 (0.2-1.0) mg/dL AST 19 (15-37) IU/L ALT 29 (14-63) IU/L Alkaline Phosphatase 116 (46-116) U/L Troponin I < 0.050 (0.000-0.056) ng/mL C-Reactive Protein 23.10 H (0.00-0.90) mg/dL Total Protein 7.1 (6.4-8.2) g/dL Albumin 3.2 L (3.4-5.0) g/dL Globulin 3.9 (2.6-4.0) g/dL Albumin/Globulin Ratio 0.8 L (0.9-1.6) Meds: Medications Generic Name Dose Route Start Last Admin Trade Name Freq PRN Reason Stop Dose Admin Dextrose/Water 50 ml 07/02/20 12:01 Dextrose 50% In Water IV ASDIRECTED PRN Hypoglycemia Glucagon 1 mg 07/02/20 12:01 Glucagen IM ASDIRECTED PRN Hypoglycemia Cefazolin Sodium/Dextrose 1 gm 50 mls @ 100 mls/hr 07/02/20 12:05 07/02/20 12:10 / Premix IV 07/02/20 12:34 100 mls/hr ONETIME ONE Administration Sodium Chloride 10 ml 07/02/20 10:42 07/02/20 10:54 Saline Flush FLUSH 10 ml ASDIRECTED PRN Administration Keep Vein Open Sodium Chloride 2.5 ml 07/02/20 10:42 07/02/20 10:54 Saline Flush FLUSH 2.5 ml ASDIRECTED PRN Administration Keep Vein Open Discontinued Medications Generic Name Dose Route Start Last Admin Trade Name Freq PRN Reason Stop Dose Admin Calcium Gluconate 1 gm 07/02/20 12:01 Calcium Gluconate IVPUSH 07/02/20 12:02 ONETIME ONE Dextrose/Water 25 ml 07/02/20 12:02 Dextrose 50% In Water IVPUSH 07/02/20 12:03 ONETIME ONE Lactated Ringer's 500 mls @ 999 mls/hr 07/02/20 10:52 07/02/20 10:58 Ringers, Lactated IV 07/02/20 11:22 999 mls/hr .BOLUS ONE Administration Insulin Human Regular 10 unit 07/02/20 12:01 Novolin R IVPUSH 07/02/20 12:02 ONETIME ONE Protocol Departure - Departure Time of Disposition: 12:17 Disposition: Admitted As Inpatient 67 Condition: Good Clinical Impression: Hyperkalemia, Hyponatremia, Cellulitis, Fracture of left great toe - Discharge Information *PRESCRIPTION DRUG MONITORING PROGRAM REVIEWED*: Not Applicable *COPY OF PRESCRIPTION DRUG MONITORING REPORT IN PATIENT MARQUES: Not Applicable Referrals: Vincent Carcamo MD [Primary Care Provider] - Forms: ED Department Discharge Sepsis Event Note (ED) - Evaluation Sepsis Screening Result: No Definite Risk - Focused Exam Vital Signs: Vital Signs Temp Pulse Resp BP Pulse Ox 07/02/20 10:36 97.6 F 72 18 128/55 L 98 - My Orders Last 24 Hours: My Active Orders 07/02/20 10:42 EKG Documentation Completion [RC] STAT Sodium Chloride 0.9% [Saline Flush] 10 ml FLUSH ASDIRECTED PRN Sodium Chloride 0.9% [Saline Flush] 2.5 ml FLUSH ASDIRECTED PRN Saline Lock Insert [OM.PC] Stat 07/02/20 10:59 PROCALCITONIN [REF] Stat 07/02/20 12:00 COVID-19/FLU A+B [MOLEC] Stat 07/02/20 12:01 Dextrose 50% in Water 50 ml IV ASDIRECTED PRN Glucagon,Human Recombinant [GlucaGen] 1 mg IM ASDIRECTED PRN 07/02/20 12:05 ceFAZolin [Ancef 1 GM/50 ML] 1 gm Premix Bag 1 bag IV ONETIME 07/02/20 12:07 CULTURE BLOOD [BC] Stat CULTURE BLOOD [BC] Stat Blood Culture x2 Reflex Set [OM.PC] Stat 07/02/20 12:15 DME for Discharge [COMM] Stat - Assessment/Plan Last 24 Hours: My Active Orders 07/02/20 10:42 EKG Documentation Completion [RC] STAT Sodium Chloride 0.9% [Saline Flush] 10 ml FLUSH ASDIRECTED PRN Sodium Chloride 0.9% [Saline Flush] 2.5 ml FLUSH ASDIRECTED PRN Saline Lock Insert [OM.PC] Stat 07/02/20 10:59 PROCALCITONIN [REF] Stat 07/02/20 12:00 COVID-19/FLU A+B [MOLEC] Stat 07/02/20 12:01 Dextrose 50% in Water 50 ml IV ASDIRECTED PRN Glucagon,Human Recombinant [GlucaGen] 1 mg IM ASDIRECTED PRN 07/02/20 12:05 ceFAZolin [Ancef 1 GM/50 ML] 1 gm Premix Bag 1 bag IV ONETIME 07/02/20 12:07 CULTURE BLOOD [BC] Stat CULTURE BLOOD [BC] Stat Blood Culture x2 Reflex Set [OM.PC] Stat 07/02/20 12:15 DME for Discharge [COMM] Stat Assessment:: 54-year-old female presenting with complaints as noted above. In terms of his right shoulder x-rays been ordered to exclude fracture but I suspect soft tissue injury in the setting of trying to open the frozen door. Regarding his left great toe toe fracture is certainly suspected and x-ray pending osteomyelitis considered I think it less likely but again x-ray as well as inflammatory markers are pending. Cellulitis a consideration as well procalcitonin added. Regarding his other complaints certainly electrolyte derangement is a consideration dehydration is a consideration primary ACS felt much less likely but EKG and troponin pending. Pneumonia considered also felt less likely but chest x-ray pending. Final disposition pending results of initial evaluation. 500 ml fluid bolus ordered for now. 1156: Regarding his shoulder this is no sign of fx or dislocation and pain is felt to be 2/2 soft tissue injury. Regarding his toe he does have a nondisplaced fx at the base of his proximal phalanx. This can be treated with a hard soled shoe. Pt's CXR demonstrates some mild fluid overload. Labs demonstrate multiple abnormalities including hyponatremia and hyperkalemia. These are like 2/2 his end stage renal disease. WBC is 5, ESR and CRP mildly elevated. However, no signs of osteomyelitis on XR. Pt given calcium, insulin and glucose for his hyperkalemia. I think he does need HD and given his weakness and other symptoms I do not think DC for outpatient HD would be safe. We will need to transfer to further care and treatment. Will order ancef for cellulitis. COVID added given transfer but no clinical concern for COVID. 1209: Pt accepted by Dr. Webb for transfer to [facility] in [place]. Pt requires a hard soled postop shoe on his left foot for his nondisplaced proximal phalanx fracture of his left great toe this will provide adequate splinting allow the bone to heal safely and allow him to ambulate more securely he will need to use it for 4 to 6 weeks
[2020-07-02] MEDS ORDERED: Lactated Ringers 500 ML IV ONE (10:52)
--- NOTE | 2020-07-02 11:34 | CR ---
Indication: Chest Pain Comparison: Single-view chest April 04, 2020 Technique: Single AP view chest Findings: There is hyperinflation and chronic interstitial change. There is mildly increased interstitial markings from comparison exam likely representing pulmonary vascular congestion. There is no dense consolidation, effusion or pneumothorax. The cardiac silhouette is enlarged with a dual-chamber pacer. The bony thorax is grossly intact. Impression: Chronic interstitial changes with mildly increased interstitial markings from comparison likely representing developing pulmonary edema. Dictated by Wade Ramos MD @ Jul 02 2020 11:33AM Signed by Dr. Wade Ramos @ Jul 02 2020 11:34AM
--- NOTE | 2020-07-02 11:36 | CR ---
Indication: Mid toe Pain Comparison: None available. Technique: AP and lateral views left foot were obtained Findings: There is demonstration of likely a nondisplaced fracture at the base of the distal 1st phalanx. The joint spaces are grossly preserved. There is fusiform soft tissue swelling. Impression: Nondisplaced fracture at the base of the proximal 1st phalanx with associated soft tissue swelling. Dictated by Wade Ramos MD @ Jul 02 2020 11:34AM Signed by Dr. Wade Ramos @ Jul 02 2020 11:35AM
[2020-07-02 11:40] LABS: BLOOD UREA NITROGEN,BUN 80 mg/dL (7.0-18.0); CARBON DIOXIDE,CO2 20.4 mmol/L (21.0-32.0); CHLORIDE,CL 91 mmol/L (98-107); GLUCOSE RANDOM 301 mg/dL (74-106); POTASSIUM,K 6.6 mmol/L (3.5-5.1); SODIUM,NA 126 mmol/L (136-148)
--- NOTE | 2020-07-02 11:47 | CR ---
INDICATION: Pain status post injury COMPARISON: None TECHNIQUE: Three images of the right shoulder were acquired FINDINGS: There is no visible lytic or blastic lesion, fracture or dislocation. The glenohumeral joint appears normal. There is moderate acromioclavicular joint osteoarthritis. A right-sided pacer is noted which partially obscures the scapula IMPRESSION: Acromioclavicular osteoarthritis. No visible acute fracture, dislocation or destructive process. A pacer obscures a portion of the scapula. Dictated by Vishnu Yeh MD @ Jul 02 2020 11:43AM Signed by Dr. Vishnu Yeh @ Jul 02 2020 11:45AM
[2020-07-02] MEDS ORDERED: Insulin Regular, Human 100 Units/ML 10 ML Vial IVPUSH ONE (12:01)
[2020-07-02] MEDS ORDERED: Calcium Gluconate 10% 1 GM/10 ML SDV IVPUSH ONE (12:01)
[2020-07-02] MEDS ORDERED: 50% Dextrose in Water 50 ML Syringe IV PRN (12:01)
[2020-07-02] MEDS ORDERED: Glucagon,Human Recombinant 1 MG Vial IM PRN (12:01)
[2020-07-02] MEDS ORDERED: 50% Dextrose in Water 50 ML Syringe IVPUSH ONE (12:02)
[2020-07-02] MEDS ORDERED: ceFAZolin 1 GM in Premix Bag 1 BAG IV ONE (12:05)
[2020-07-02] MEDS ORDERED: Acetaminophen 500 MG Tab ONE (13:44)
[2020-07-02] MEDS ORDERED: Acetaminophen 500 MG Tab PO ONE (13:47)
== END 2020-07-02 13:50 ==
LOC: MW.ED 10:33
DX: S92.415A Nondisplaced fracture of proximal phalanx of left great toe, initial encounter for closed fracture (principal); E87.1 Hypo-osmolality and hyponatremia; E87.5 Hyperkalemia; L03.032 Cellulitis of left toe; I25.10 Atherosclerotic heart disease of native coronary artery without angina pectoris; E78.00 Pure hypercholesterolemia, unspecified; I12.0 Hypertensive chronic kidney disease with stage 5 chronic kidney disease or end stage renal disease; E11.22 Type 2 diabetes mellitus with diabetic chronic kidney disease; N18.6 End stage renal disease; E11.43 Type 2 diabetes mellitus with diabetic autonomic (poly)neuropathy; K31.84 Gastroparesis; K21.9 Gastro-esophageal reflux disease without esophagitis; F01.50 Vascular dementia, unspecified severity, without behavioral disturbance, psychotic disturbance, mood disturbance, and anxiety; M19.90 Unspecified osteoarthritis, unspecified site; Z88.5 Allergy status to narcotic agent; Z88.8 Allergy status to other drugs, medicaments and biological substances; Z79.01 Long term (current) use of anticoagulants; Z79.82 Long term (current) use of aspirin; Z79.899 Other long term (current) drug therapy; W22.8XXA Striking against or struck by other objects, initial encounter
CPT/HCPCS: 36415; 71045; 73030; 73620; 80053; 83735; 84145; 84484; 85025; 85652; 86140; 87040; 93005; 96365; 96375; 99285; A9270; J0610; J0690; J1815; J7120; 87077; 87186; 93010; 99284

== ENCOUNTER 2020-07-16 16:54 | Observation (INO) | payer MEDICARE, BC ==
--- NOTE | 2020-07-16 18:00 | PCM.HP.2 ---
H&P History of Present Illness - General Date of Service: 07/16/20 Source of Information: Patient History Limitations: Reports: No Limitations - History of Present Illness Initial Comments - Free Text/Narative: 55-year-old male direct admission from podiatry clinic for left foot toe amputation revision. He has a PMH of ESRD on hemodialysis (Thu-Thu-Thu), CAD s/p stents, s/p pacemaker, s/p PEG tube secondary to recurrent pancreatitis, Type 2 DM, HTN, HLD, VSD, gastroparesis and restless legs syndrome. Patient reports being seen at licensed embalmer supervisor Dr. Hester's clinic earlier today and was directly admitted for left foot toe amputation revision. He initially had left foot toe amputation done in [place] on 07/04/20. His left foot amputation site has been draining clear-yellow colored fluid. Furthermore, patient reports that he fell on 3 separate occasions today off of a knee scooter which he has been using to get around prior to appointment with licensed embalmer supervisor Dr. Hester in clinic today.. He denies any loss of consciousness. After being told that he will be admitted directly to the hospital patient went home and then called EMS. Upon arrival, EMS noticed that patient had large periorbital swelling and placed patient in c- collar and then was admitted to med/surg floor. Patient has not had any fevers, chills, sore throat, cough, SOB, chest pain, nausea, vomiting, abdominal pain, blood in stool or blood in urine. - Related Data Allergies/Adverse Reactions: Allergies Allergy/AdvReac Type Severity Reaction Status Date / Time meperidine [From Demerol] Allergy Hypertensio Verified 07/16/20 19:40 n morphine Allergy Hypertensio Verified 07/16/20 19:40 n Home Medications: Home Meds Apixaban [Eliquis] 1 tab PO BID 07/02/20 [History] Aspirin 81 mg PO DAILY 07/02/20 [History] Clopidogrel [Plavix] 75 mg PO DAILY 07/02/20 [History] Donepezil HCl 10 mg PO DAILY 07/02/20 [History] FLUoxetine HCl [Fluoxetine HCl] 40 mg PO DAILY 07/02/20 [History] Furosemide [Lasix] 80 mg PO BID 07/02/20 [History] Gabapentin [Neurontin] 2 tab PO BEDTIME 07/02/20 [History] Isosorbide Mononitrate [Isosorbide Mononitrate ER] 60 mg PO DAILY 07/02/20 [His tory] Nitroglycerin [Nitrostat] 0.4 mg SL ASDIRECTED 07/02/20 [History] Pantoprazole [ProTONIX] 40 mg PO DAILY 07/02/20 [History] Sevelamer Carbonate [Renvela] 800 mg PO DAILY 07/02/20 [History] Valsartan 80 mg PO DAILY 07/02/20 [History] Zolpidem Tartrate 10 mg PO BEDTIME 07/02/20 [History] amLODIPine Besylate [Amlodipine Besylate] 10 mg PO BEDTIME 07/02/20 [History] atorvaSTATin [Lipitor] 40 mg PO BEDTIME 07/02/20 [History] carvediloL [Carvedilol] 25 mg PO BID 07/02/20 [History] hydrALAZINE [Apresoline] 25 mg PO TID 07/02/20 [History] rOPINIRole HCl [Requip] 0.5 mg PO BEDTIME 07/02/20 [History] traMADol HCl [Tramadol HCl] 50 mg PO BID 07/02/20 [History] Past Medical History Cardiovascular History: Reports: CAD, Congenital Septal Defect, High C holesterol, Hypertension, Other (See Below) Other Cardiovascular History: ventricular septal defect Respiratory History: Reports: Bronchitis, Recurrent, Pneumonia, Recurrent Gastrointestinal History: Reports: GERD, Pancreatitis, Other (See Below) Genitourinary History: Reports: Renal Calculus, Other (See Below) Other Genitourinary History: end stage renal failure on HD Musculoskeletal History: Reports: Arthritis Neurological History: Reports: Migraines, Neuropathy, Diabetic, Other (See Below) Other Neuro History: mild cognitive impairment, vascular dementia, restless leg syndrome Psychiatric History: Reports: Anxiety, Depression Endocrine/Metabolic History: Reports: Diabetes, Type II Other Endocrine/Metabolic History: insulin dependent - Infectious Disease History Infectious Disease History: Reports: Chicken Pox, Measles - Past Surgical History HEENT Surgical History: Reports: Adenoidectomy, Eye Surgery GI Surgical History: Reports: Cholecystectomy, Colonoscopy, EGD Social & Family History - Family History Family Medical History: No Pertinent Family History - Caffeine Use Caffeine Use: Reports: None - Living Situation & Occupation Living situation: Reports: Occupation: Disabled H&P Review of Systems - Review of Systems: Review Of Systems: Comprehensive ROS is negative, except as noted in HPI. Exam - Exam Exam: See Below - Exam General: Alert, Oriented, Cooperative, Other (NAD) HEENT: Conjunctiva Clear, EOMI, Hearing Intact, Pupils Equal, Pupils Reactive, Other (Large ecchymosis over right orbit.) Neck: Supple, Trachea Midline, Full Range of Motion, Other (No tenderness to palpation.) Lungs: Clear to Auscultation, Normal Respiratory Effort Cardiovascular: Regular Rate, Regular Rhythm GI/Abdominal Exam: Normal Bowel Sounds, Soft, Non-Tender, No Distention, Other (PEG tube in place in left abdomen) Extremities: Other (Left Foot: great toe amputation wound site draining scant amount of serosanguinous fluid. ) Peripheral Pulses: 2+: Radial (L), Radial (R) Skin: Warm, Dry, Intact Neurological: Cranial Nerves Intact, Strength Equal Bilateral, Normal Speech, Normal Tone Neuro Extensive - Mental Status: Alert, Oriented x3, Normal Mood/Affect Psychiatric: Alert, Normal Affect, Normal Mood - Patient Data Result Diagrams: 07/16/20 18:15 07/16/20 18:15 - Problem List (1) Amputation toe SNOMED Code(s): 104523764 ICD Code: S98.139A - COMPLETE TRAUMATIC AMPUTATION OF ONE UNSP LESSER TOE, INIT Status: Acute Current Visit: Yes (2) A-fib SNOMED Code(s): 69046204 ICD Code: I48.91 - UNSPECIFIED ATRIAL FIBRILLATION Status: Acute Current Visit: Yes (3) Pacemaker SNOMED Code(s): 831010216 ICD Code: Z95.0 - PRESENCE OF CARDIAC PACEMAKER Status: Acute Current Visit: Yes (4) VSD (ventricular septal defect) SNOMED Code(s): 58615260 ICD Code: Q21.0 - VENTRICULAR SEPTAL DEFECT Status: Acute Current Visit: Yes (5) RLS (restless legs syndrome) SNOMED Code(s): 72536116 ICD Code: G25.81 - RESTLESS LEGS SYNDROME Status: Acute Current Visit: Yes (6) CAD (coronary artery disease) SNOMED Code(s): 57441534 ICD Code: I25.10 - ATHSCL HEART DISEASE OF [place] CORONARY ARTERY W/O ANG PCTRS Status: Chronic Current Visit: No (7) ESRD on hemodialysis SNOMED Code(s): 567654721 ICD Code: N18.6 - END STAGE RENAL DISEASE; Z99.2 - DEPENDENCE ON RENAL DIALYSIS Status: Chronic Current Visit: No (8) Gastroparesis due to secondary diabetes SNOMED Code(s): 1986361, 529445012 ICD Code: E13.43 - OTH DIABETES MELLITUS W DIABETIC AUTONOMIC (POLY)NEUROPATHY Status: Chronic Current Visit: No (9) HLD (hyperlipidemia) SNOMED Code(s): 75209302 ICD Code: E78.5 - HYPERLIPIDEMIA, UNSPECIFIED Status: Chronic Current Visit: No (10) Diabetes mellitus SNOMED Code(s): 31129476 ICD Code: E11.9 - TYPE 2 DIABETES MELLITUS WITHOUT COMPLICATIONS Status: Acute Current Visit: Yes Problem List Initiated/Reviewed/Updated: Yes Orders Last 24hrs: Active Orders 24 hr Category Date Time Status ADA Diabetic [[place] [employer] Diet] [DIET Diet 07/16/20 Dinner Active ] CORONAVIRUS COVID-19 MATEO [[facility]] Urgent Lab 07/16/20 17:05 Received Assessment/Plan Comment:: Assessment and Plan: 1. Left foot toe amputation revision: - Admit to med/surg. Per licensed embalmer supervisor Dr. Hester, patient will be going to OR tomorrow for revision of left foot toe amputation. Will start IV vancomycin and zosyn. NPO at 6 AM tomorrow morning. EKG showed NSR, HR 69, OR 188, QTc [address] changes. CXR showed no acute cardiopulmonary processes Patient is moderate to high risk of post-operative complications depending on what anesthesia or procedure is preformed. 2. For pulmonary risk, Mallampati score class I. Normal ROM at neck. Neck is non-ttp. C-collar was cleared after CT cervical spine showed no evidence of acute injury. 3. For hematological/bleeding risk, patient is on aspirin, plavix and Eliquis. INR is 1.62. CT head post-fall showed no acute intracranial hemorrhage. 4. For renal risk, patient has ESRD on hemodialysis (Thu-Thu-Thu). He was last hemodialyzed on 07/16/20. 5. For infectious risk, patient does have history of type 2 DM and last HgbA1c was 8.7 (05/02/20). 6. Past medical history of diabetic gastroparesis, afib, CAD s/p stents, s/p pacemaker, s/p PEG tube, HTN, hyperlipidemia and restless legs syndrome: - Continue home medications with the exception of valsartan. 7. Code Status: DNR/DNI.
[2020-07-16] MEDS ORDERED: Ondansetron 4 MG/2 ML SDV IVPUSH PRN (18:06)
[2020-07-16 18:46] LABS: BLOOD UREA NITROGEN,BUN 25 mg/dL (7.0-18.0); CHLORIDE,CL 95 mmol/L (98-107); GLUCOSE RANDOM 339 mg/dL (74-106); POTASSIUM,K 4.5 mmol/L (3.5-5.1); SODIUM,NA 129 mmol/L (136-148)
--- NOTE | 2020-07-16 19:00 | CT ---
INDICATION: Fall, anticoagulated. TECHNIQUE: CT cervical spine without contrast. COMPARISON: None. FINDINGS: Vertebral alignment: Alignment is normal. Vertebrae: There are no fractures or suspicious bony lesions. Discs and facet joints: There are no significant degenerative disc or facet changes. Extraspinal findings: Paraspinous soft tissues are unremarkable. Status post right mastoidectomy. IMPRESSION: No sign of acute injury. Please note that all CT scans at this facility use dose modulation, iterative reconstruction, and/or weight-based dosing when appropriate to reduce radiation dose to as low as reasonably achievable. Dictated by Enedina Tamayo MD @ Jul 16 2020 6:55PM Signed by Dr. Enedina Tamayo @ Jul 16 2020 6:59PM
--- NOTE | 2020-07-16 19:07 | CR ---
INDICATION: Fall TECHNIQUE: Chest 1 view. COMPARISON: 07/02/2020 FINDINGS: Cardiovascular and mediastinum: Stable cardiomegaly. Right-sided transvenous pacer device.. Mediastinum is within normal limits. Lungs and pleural space: Lungs are clear. No sign of infiltrate or mass. No sign of pleural effusion. No pneumothorax. Bones and soft tissues: No significant findings. IMPRESSION: No evidence of acute trauma. Stable cardiomegaly. Dictated by Livan Donaldson MD @ Jul 16 2020 7:05PM Signed by Dr. Livan Donaldson @ Jul 16 2020 7:05PM
--- NOTE | 2020-07-16 19:09 | CT ---
INDICATION: Fall, anticoagulated TECHNIQUE: CT head without contrast. COMPARISON: None FINDINGS: CSF spaces: Within normal limits for age. Brain parenchyma: The adams-white differentiation is normal. No sign of mass, hemorrhage, or midline shift. Skull base and calvarium: The visualized paranasal sinuses and mastoid air cells demonstrate no acute or significant findings. The visualized orbits are grossly unremarkable. No skull fractures. Status post right mastoidectomy. Right periorbital soft tissue swelling. IMPRESSION: No intracranial hemorrhage. Right periorbital soft tissue swelling. Please note that all CT scans at this facility use dose modulation, iterative reconstruction, and/or weight-based dosing when appropriate to reduce radiation dose to as low as reasonably achievable. Dictated by Enedina Tamayo MD @ Jul 16 2020 6:55PM Signed by Dr. Enedina Tamayo @ Jul 16 2020 7:07PM
--- NOTE | 2020-07-16 19:11 | CT ---
INDICATION: Fall, on blood thinners TECHNIQUE: CT maxillofacial without contrast. COMPARISON: None FINDINGS: Facial bones: No fractures or bone lesions. Specifically the nasal bones, temporomandibular joints, maxilla and mandible appear intact. Orbits and globes: Unremarkable. Sinuses: No acute or significant findings. Soft tissues: Right periorbital soft tissue swelling IMPRESSION: Right periorbital soft tissue swelling. No acute fracture. Please note that all CT scans at this facility use dose modulation, iterative reconstruction, and/or weight-based dosing when appropriate to reduce radiation dose to as low as reasonably achievable. Dictated by Enedina Tamayo MD @ Jul 16 2020 7:08PM Signed by Dr. Enedina Tamayo @ Jul 16 2020 7:08PM
[2020-07-16] MEDS ORDERED: Glucagon,Human Recombinant 1 MG Vial IM PRN (19:25)
[2020-07-16] MEDS ORDERED: 50% Dextrose in Water 50 ML Syringe IVPUSH PRN (19:25)
[2020-07-16] MEDS ORDERED: Insulin Aspart 100 Units/ML 3 ML Pen SUBCUT ONE (20:34)
--- NOTE | 2020-07-16 20:38 | PCM.SN.2 ---
- Free Text/Narrative Note: Chart Review- Consulted with Dr Alves following hospitalist consult and Lab results. Will review AM labs, previous CV notes (Stent placement date/Pacemeker placement date (type of pacemaker)/last pacemaker integration), and other patient data from other facilities once it has been obtained. Spoke with Hetal SHELDON regarding the following. After chart review (pt was dialyzed today); pt has significant anemia, CAD (Coronary and Thoracic calcifications on previous CT) , chronic anticoagulation, hyperglycemia, hyponatremia, hypomagnesia, chronic pancreatitis, pacemaker, hx of A-fib, cardiomegaly, HTN, chronic CHF, home O2(sometimes), 08/2019 echo shows VSD with Lt to Rt shunt; moderate to severely elevated RA and LA pressures; RVSP severely elevated as well, ESRD, and PEG tube. Given the patients chronic anticoagulation general anesthesia will likely required. Pt currently on the medical floor is requiring O2 at 5 LPM via NC to maintain SpO2 of 95%; pt is at an elevated risk post-operatively for invasive/non-invasive ventilatory support. Unless rapid improvement is made in patients clinical status; tertiary center transfer may be warranted for surgical intervention and multi-speciality post-operative management (CV, Pulm, dialysis, I/D). Shannan BAEZA was also informed of the anesthesia teams plan. Definitive plan will be determined in the AM following lab and external chart reviews once they are obtained.
[2020-07-16] MEDS ORDERED: traMADol 50 MG Tab PO PRN (20:50)
[2020-07-16] MEDS ORDERED: Gabapentin 100 MG Cap PO SCH (21:00)
[2020-07-16] MEDS ORDERED: Docusate Sodium 100 MG Cap PO PRN (21:00)
[2020-07-16] MEDS ORDERED: Apixaban 5 MG Tab PO SCH (21:00)
[2020-07-16] MEDS ORDERED: Insulin Glargine,Human Rec. Analog 100 Units/ML 3 ML Pen SUBCUT SCH (21:00)
[2020-07-16] MEDS ORDERED: amLODIPine 5 MG Tab PO SCH (21:00)
[2020-07-16] MEDS ORDERED: atorvaSTATin 40 MG Tab PO SCH (21:00)
[2020-07-16] MEDS ORDERED: rOPINIRole 0.5 MG Tab PO SCH (21:00)
[2020-07-16] MEDS: Piperacillin/Tazobactam 2.25 GM in Sodium Chloride 0.9% 50 ML IV SCH (21:20)
[2020-07-17] MEDS ORDERED: Carvedilol 25 MG Tab PO ONE (00:12)
[2020-07-17] MEDS ORDERED: atorvaSTATin 40 MG Tab PO ONE (00:14)
[2020-07-17] MEDS ORDERED: Gabapentin 100 MG Cap PO ONE (00:15)
[2020-07-17] MEDS ORDERED: rOPINIRole 0.5 MG Tab PO ONE (00:16)
[2020-07-17] MEDS: Insulin Aspart 100 Units/ML 3 ML Pen SUBCUT SCH ×4 (00:18→18:36)
[2020-07-17] MEDS: hydrALAZINE 25 MG Tab PO SCH ×3 (00:32→14:39)
[2020-07-17] MEDS: Furosemide 80 MG Tab PO SCH ×3 (00:33→14:33)
[2020-07-17] MEDS: Carvedilol 25 MG Tab PO SCH ×2 (00:34→11:06)
[2020-07-17] MEDS: Piperacillin/Tazobactam 2.25 GM in Sodium Chloride 0.9% 50 ML IV SCH ×2 (04:51→12:22)
[2020-07-17 06:04] LABS: CARBON DIOXIDE,CO2 24.7 mmol/L (21.0-32.0); POTASSIUM,K 4.9 mmol/L (3.5-5.1)
[2020-07-17] MEDS: Acetaminophen/oxyCODONE 325-5 MG Tab PO PRN ×2 (07:11→11:19)
[2020-07-17] MEDS ORDERED: Pantoprazole 40 MG Tab.CR PO SCH (07:30)
[2020-07-17] MEDS ORDERED: Insulin Aspart 100 Units/ML 3 ML Pen SUBCUT SCH (07:30)
--- NOTE | 2020-07-17 08:20 | PCM.PN ---
- General Info Date of Service: 07/17/20 Subjective Update: Tolerated oral diet last night. Denies any fevers, chills, SOB, chest pain, nausea or vomiting. Complaints of mild pain in knees. - Patient Data Vitals - Most Recent: Last Vital Signs Temp 36.6 C 07/17/20 04:51 Pulse 61 07/17/20 04:51 Resp 18 07/17/20 04:51 BP 122/56 L 07/17/20 04:51 Pulse Ox 95 07/17/20 04:51 Weight - Most Recent: 99 kg I&O - Last 24 Hours: Intake & Output 07/16/20 07/17/20 07/17/20 22:59 06:59 14:59 Intake Total 600 Balance 600 Lab Results Last 24 Hours: Laboratory Results - last 24 hr 07/16/20 07/16/20 07/16/20 Range/Units 17:05 18:15 18:15 WBC 4.89 (4.0-11.0) K/uL RBC 2.42 L (4.50-5.90) M/uL Hgb 7.4 L (13.0-17.0) g/dL Hct 23.4 L (38.0-50.0) % MCV 96.7 (80.0-98.0) fL MCH 30.6 (27.0-32.0) pg MCHC 31.6 (31.0-37.0) g/dL RDW Std Deviation 58.8 (28.0-62.0) fl RDW Coeff of Braulio 17 H (11.0-15.0) % Plt Count 118 L (150-400) K/uL MPV 10.30 (7.40-12.00) fL Neut % (Auto) 83.4 H (48.0-80.0) % Lymph % (Auto) 8.0 L (16.0-40.0) % Humphreys % (Auto) 7.2 (0.0-15.0) % Eos % (Auto) 0.8 (0.0-7.0) % Baso % (Auto) 0.6 (0.0-1.5) % Neut # (Auto) 4.1 (1.4-5.7) K/uL Lymph # (Auto) 0.4 L (0.6-2.4) K/uL Humphreys # (Auto) 0.4 (0.0-0.8) K/uL Eos # (Auto) 0.0 (0.0-0.7) K/uL Baso # (Auto) 0.0 (0.0-0.1) K/uL Nucleated RBC % 0.0 /100WBC Nucleated RBCs # 0 K/uL INR Sodium 129 L (136-148) mmol/L Potassium 4.5 (3.5-5.1) mmol/L Chloride 95 L (98-107) mmol/L Carbon Dioxide 24.0 (21.0-32.0) mmol/L BUN 25 H (7.0-18.0) mg/dL Creatinine 4.4 H (0.8-1.3) mg/dL Est Cr Clr Drug Dosing TNP Estimated GFR (MDRD) 14.1 ml/min Glucose 339 H (74-106) mg/dL POC Glucose (60-110) mg/dL Calcium 7.8 L (8.5-10.1) mg/dL Phosphorus 3.5 (2.6-4.7) mg/dL Magnesium 1.6 L (1.8-2.4) mg/dL Total Bilirubin 1.9 H (0.2-1.0) mg/dL AST 21 (15-37) IU/L ALT 146 H (14-63) IU/L Alkaline Phosphatase 137 H (46-116) U/L Total Protein 6.6 (6.4-8.2) g/dL Albumin 2.5 L (3.4-5.0) g/dL Globulin 4.1 H (2.6-4.0) g/dL Albumin/Globulin Ratio 0.6 L (0.9-1.6) SARS-CoV-2 RNA ([facility]) NEGATIVE (NEGATIVE) 07/16/20 07/16/20 07/16/20 Range/Units 18:15 20:27 22:21 WBC (4.0-11.0) K/uL RBC (4.50-5.90) M/uL Hgb (13.0-17.0) g/dL Hct (38.0-50.0) % MCV (80.0-98.0) fL MCH (27.0-32.0) pg MCHC (31.0-37.0) g/dL RDW Std Deviation (28.0-62.0) fl RDW Coeff of Braulio (11.0-15.0) % Plt Count (150-400) K/uL MPV (7.40-12.00) fL Neut % (Auto) (48.0-80.0) % Lymph % (Auto) (16.0-40.0) % Humphreys % (Auto) (0.0-15.0) % Eos % (Auto) (0.0-7.0) % Baso % (Auto) (0.0-1.5) % Neut # (Auto) (1.4-5.7) K/uL Lymph # (Auto) (0.6-2.4) K/uL Humphreys # (Auto) (0.0-0.8) K/uL Eos # (Auto) (0.0-0.7) K/uL Baso # (Auto) (0.0-0.1) K/uL Nucleated RBC % /100WBC Nucleated RBCs # K/uL INR 1.62 Sodium (136-148) mmol/L Potassium (3.5-5.1) mmol/L Chloride (98-107) mmol/L Carbon Dioxide (21.0-32.0) mmol/L BUN (7.0-18.0) mg/dL Creatinine (0.8-1.3) mg/dL Est Cr Clr Drug Dosing Estimated GFR (MDRD) ml/min Glucose (74-106) mg/dL POC Glucose 349 H 236 H (60-110) mg/dL Calcium (8.5-10.1) mg/dL Phosphorus (2.6-4.7) mg/dL Magnesium (1.8-2.4) mg/dL Total Bilirubin (0.2-1.0) mg/dL AST (15-37) IU/L ALT (14-63) IU/L Alkaline Phosphatase (46-116) U/L Total Protein (6.4-8.2) g/dL Albumin (3.4-5.0) g/dL Globulin (2.6-4.0) g/dL Albumin/Globulin Ratio (0.9-1.6) SARS-CoV-2 RNA ([facility]) (NEGATIVE) 07/16/20 07/17/2007/17/21 Range/Units 23:44 05:33 05:33 WBC 3.14 L (4.0-11.0) K/uL RBC 2.22 L (4.50-5.90) M/uL Hgb 6.7 L (13.0-17.0) g/dL Hct 21.8 L (38.0-50.0) % MCV 98.2 H (80.0-98.0) fL MCH 30.2 (27.0-32.0) pg MCHC 30.7 L (31.0-37.0) g/dL RDW Std Deviation 60.2 (28.0-62.0) fl RDW Coeff of Braulio 17 H (11.0-15.0) % Plt Count 107 L (150-400) K/uL MPV 9.80 (7.40-12.00) fL Neut % (Auto) 74.4 (48.0-80.0) % Lymph % (Auto) 11.8 L (16.0-40.0) % Humphreys % (Auto) 9.9 (0.0-15.0) % Eos % (Auto) 2.9 (0.0-7.0) % Baso % (Auto) 1.0 (0.0-1.5) % Neut # (Auto) 2.3 (1.4-5.7) K/uL Lymph # (Auto) 0.4 L (0.6-2.4) K/uL Humphreys # (Auto) 0.3 (0.0-0.8) K/uL Eos # (Auto) 0.1 (0.0-0.7) K/uL Baso # (Auto) 0.0 (0.0-0.1) K/uL Nucleated RBC % 0.0 /100WBC Nucleated RBCs # 0 K/uL INR Sodium 133 L (136-148) mmol/L Potassium 4.9 (3.5-5.1) mmol/L Chloride 99 (98-107) mmol/L Carbon Dioxide 24.7 (21.0-32.0) mmol/L BUN 36 H (7.0-18.0) mg/dL Creatinine 5.3 H (0.8-1.3) mg/dL Est Cr Clr Drug Dosing 16.49 Estimated GFR (MDRD) 11.4 ml/min Glucose 92 (74-106) mg/dL POC Glucose 164 H (60-110) mg/dL Calcium 8.0 L (8.5-10.1) mg/dL Phosphorus 5.0 H (2.6-4.7) mg/dL Magnesium 1.8 (1.8-2.4) mg/dL Total Bilirubin 1.6 H (0.2-1.0) mg/dL AST 21 (15-37) IU/L ALT 127 H (14-63) IU/L Alkaline Phosphatase 122 H (46-116) U/L Total Protein 6.3 L (6.4-8.2) g/dL Albumin 2.4 L (3.4-5.0) g/dL Globulin 3.9 (2.6-4.0) g/dL Albumin/Globulin Ratio 0.6 L (0.9-1.6) SARS-CoV-2 RNA ([facility]) (NEGATIVE) Med Orders - Current: Current Medications Amiodarone HCl (Cordarone) 100 mg PO DAILY [facility] Amlodipine Besylate (Norvasc) 10 mg PO BEDTIME [facility] Last Admin: 07/17/20 00:34 Dose: Not Given Documented by: Aspirin (Aspirin) 81 mg PO DAILY [facility] Atorvastatin Calcium (Lipitor) 40 mg PO BEDTIME [facility] Last Admin: 07/17/20 00:34 Dose: Not Given Documented by: Carvedilol (Coreg) 25 mg PO BID [facility] Last Admin: 07/17/20 00:34 Dose: Not Given Documented by: Clopidogrel Bisulfate (Plavix) 75 mg PO DAILY [facility] Dextrose/Water (Dextrose 50% In Water) 50 ml IVPUSH ASDIRECTED PRN PRN Reason: Hypoglycemia Docusate Sodium (Colace) 100 mg PO BID PRN PRN Reason: Constipation Donepezil HCl (Aricept) 10 mg PO DAILY [facility] Fluoxetine HCl (Prozac) 40 mg PO DAILY [facility] Furosemide (Lasix) 80 mg PO BIDDIURETIC [facility] Last Admin: 07/17/20 00:33 Dose: Not Given Documented by: Gabapentin (Neurontin) 200 mg PO BEDTIME [facility] Last Admin: 07/17/20 00:34 Dose: Not Given Documented by: Glucagon (Glucagen) 1 mg IM ASDIRECTED PRN PRN Reason: Hypoglycemia Hydralazine HCl (Apresoline) 25 mg PO TID [facility] Last Admin: 07/17/20 07:10 Dose: Not Given Documented by: Piperacillin Sod/Tazobactam (Sod 2.25 gm/ Sodium Chloride) 50 mls @ 100 mls/hr IV Q8H [facility] Last Admin: 07/17/20 04:51 Dose: 100 mls/hr Documented by: Insulin Aspart (Novolog) 0 unit SUBCUT TIDAC [facility]; Protocol Last Admin: 07/17/20 07:52 Dose: Not Given Documented by: Insulin Glargine (Lantus Solostar) 50 units SUBCUT BEDTIME [facility] Last Admin: 07/16/20 22:21 Dose: 50 units Documented by: Isosorbide Mononitrate (Imdur) 90 mg PO DAILY [facility] Ondansetron HCl (Zofran) 4 mg IVPUSH Q4H PRN PRN Reason: Nausea Oxycodone/Acetaminophen (Percocet 325-5 Mg) 1 tab PO Q4H PRN PRN Reason: Pain (moderate 4-6) Last Admin: 07/17/20 07:11 Dose: 1 tab Documented by: Pantoprazole Sodium (Protonix) 40 mg PO ACBREAKFAST [facility] Ropinirole HCl (Requip) 0.5 mg PO BEDTIME [facility] Last Admin: 07/17/20 00:35 Dose: Not Given Documented by: Tramadol HCl (Ultram) 50 mg PO BID PRN PRN Reason: Pain Last Admin: 07/16/20 23:40 Dose: 50 mg Documented by: Vancomycin HCl (Pharmacy To Dose - Vancomycin) 1 dose .XX ASDIRECTED [facility] Zaleplon (Sonata) 10 mg PO BEDTIME [facility] Last Admin: 07/17/20 00:35 Dose: Not Given Documented by: Discontinued Medications Apixaban (Eliquis) 5 mg PO BID [facility] Last Admin: 07/17/20 00:33 Dose: Not Given Documented by: Atorvastatin Calcium (Lipitor) 40 mg PO ONETIME ONE Stop: 07/17/20 00:15 Last Admin: 07/17/20 00:27 Dose: 40 mg Documented by: Carvedilol (Coreg) 25 mg PO ONETIME ONE Stop: 07/17/20 00:13 Last Admin: 07/17/20 00:28 Dose: 25 mg Documented by: Gabapentin (Neurontin) 200 mg PO ONETIME ONE Stop: 07/17/20 00:16 Last Admin: 07/17/20 00:28 Dose: 200 mg Documented by: Vancomycin HCl 1.5 gm/ Premix 300 mls @ 200 mls/hr IV ONETIME ONE Stop: 07/17/20 00:29 Last Admin: 07/16/20 23:44 Dose: 200 mls/hr Documented by: [facility] Protocol Insulin Aspart (Novolog) 8 unit SUBCUT ONETIME ONE Stop: 07/16/20 20:35 Last Admin: 07/16/20 20:50 Dose: 8 units Documented by: Ropinirole HCl (Requip) 0.5 mg PO BEDTIME ONE Stop: 07/17/20 00:17 Last Admin: 07/17/20 00:29 Dose: 0.5 mg Documented by: Zaleplon (Sonata) 10 mg PO ONETIME ONE Stop: 07/17/20 00:19 Last Admin: 07/17/20 00:27 Dose: 10 mg Documented by: - Exam General: Alert, Oriented, Cooperative, No Acute Distress HEENT: Other (Right periorbital hematoma) Lungs: Clear to Auscultation, Normal Respiratory Effort Cardiovascular: Regular Rate, Regular Rhythm GI/Abdominal Exam: Normal Bowel Sounds, Soft, Non-Tender, No Distention, Other (PEG tube in place left abdomen) Extremities: Other (Left Foot: great toe amputation wound site draining scant amount of serosanguinous fluid. ) - Patient Data Lab Results Last 24 hrs: Laboratory Results - last 24 hr 07/16/20 07/16/20 07/16/20 Range/Units 17:05 18:15 18:15 WBC 4.89 (4.0-11.0) K/uL RBC 2.42 L (4.50-5.90) M/uL Hgb 7.4 L (13.0-17.0) g/dL Hct 23.4 L (38.0-50.0) % MCV 96.7 (80.0-98.0) fL MCH 30.6 (27.0-32.0) pg MCHC 31.6 (31.0-37.0) g/dL RDW Std Deviation 58.8 (28.0-62.0) fl RDW Coeff of Braulio 17 H (11.0-15.0) % Plt Count 118 L (150-400) K/uL MPV 10.30 (7.40-12.00) fL Neut % (Auto) 83.4 H (48.0-80.0) % Lymph % (Auto) 8.0 L (16.0-40.0) % Humphreys % (Auto) 7.2 (0.0-15.0) % Eos % (Auto) 0.8 (0.0-7.0) % Baso % (Auto) 0.6 (0.0-1.5) % Neut # (Auto) 4.1 (1.4-5.7) K/uL Lymph # (Auto) 0.4 L (0.6-2.4) K/uL Humphreys # (Auto) 0.4 (0.0-0.8) K/uL Eos # (Auto) 0.0 (0.0-0.7) K/uL Baso # (Auto) 0.0 (0.0-0.1) K/uL Nucleated RBC % 0.0 /100WBC Nucleated RBCs # 0 K/uL INR Sodium 129 L (136-148) mmol/L Potassium 4.5 (3.5-5.1) mmol/L Chloride 95 L (98-107) mmol/L Carbon Dioxide 24.0 (21.0-32.0) mmol/L BUN 25 H (7.0-18.0) mg/dL Creatinine 4.4 H (0.8-1.3) mg/dL Est Cr Clr Drug Dosing TNP Estimated GFR (MDRD) 14.1 ml/min Glucose 339 H (74-106) mg/dL POC Glucose (60-110) mg/dL Calcium 7.8 L (8.5-10.1) mg/dL Phosphorus 3.5 (2.6-4.7) mg/dL Magnesium 1.6 L (1.8-2.4) mg/dL Total Bilirubin 1.9 H (0.2-1.0) mg/dL AST 21 (15-37) IU/L ALT 146 H (14-63) IU/L Alkaline Phosphatase 137 H (46-116) U/L Total Protein 6.6 (6.4-8.2) g/dL Albumin 2.5 L (3.4-5.0) g/dL Globulin 4.1 H (2.6-4.0) g/dL Albumin/Globulin Ratio 0.6 L (0.9-1.6) SARS-CoV-2 RNA ([facility]) NEGATIVE (NEGATIVE) 07/16/20 07/16/20 07/16/20 Range/Units 18:15 20:27 22:21 WBC (4.0-11.0) K/uL RBC (4.50-5.90) M/uL Hgb (13.0-17.0) g/dL Hct (38.0-50.0) % MCV (80.0-98.0) fL MCH (27.0-32.0) pg MCHC (31.0-37.0) g/dL RDW Std Deviation (28.0-62.0) fl RDW Coeff of Braulio (11.0-15.0) % Plt Count (150-400) K/uL MPV (7.40-12.00) fL Neut % (Auto) (48.0-80.0) % Lymph % (Auto) (16.0-40.0) % Humphreys % (Auto) (0.0-15.0) % Eos % (Auto) (0.0-7.0) % Baso % (Auto) (0.0-1.5) % Neut # (Auto) (1.4-5.7) K/uL Lymph # (Auto) (0.6-2.4) K/uL Humphreys # (Auto) (0.0-0.8) K/uL Eos # (Auto) (0.0-0.7) K/uL Baso # (Auto) (0.0-0.1) K/uL Nucleated RBC % /100WBC Nucleated RBCs # K/uL INR 1.62 Sodium (136-148) mmol/L Potassium (3.5-5.1) mmol/L Chloride (98-107) mmol/L Carbon Dioxide (21.0-32.0) mmol/L BUN (7.0-18.0) mg/dL Creatinine (0.8-1.3) mg/dL Est Cr Clr Drug Dosing Estimated GFR (MDRD) ml/min Glucose (74-106) mg/dL POC Glucose 349 H 236 H (60-110) mg/dL Calcium (8.5-10.1) mg/dL Phosphorus (2.6-4.7) mg/dL Magnesium (1.8-2.4) mg/dL Total Bilirubin (0.2-1.0) mg/dL AST (15-37) IU/L ALT (14-63) IU/L Alkaline Phosphatase (46-116) U/L Total Protein (6.4-8.2) g/dL Albumin (3.4-5.0) g/dL Globulin (2.6-4.0) g/dL Albumin/Globulin Ratio (0.9-1.6) SARS-CoV-2 RNA ([facility]) (NEGATIVE) 07/16/20 07/17/20 07/17/20 Range/Units 23:44 05:33 05:33 WBC 3.14 L (4.0-11.0) K/uL RBC 2.22 L (4.50-5.90) M/uL Hgb 6.7 L (13.0-17.0) g/dL Hct 21.8 L (38.0-50.0) % MCV 98.2 H (80.0-98.0) fL MCH 30.2 (27.0-32.0) pg MCHC 30.7 L (31.0-37.0) g/dL RDW Std Deviation 60.2 (28.0-62.0) fl RDW Coeff of Braulio 17 H (11.0-15.0) % Plt Count 107 L (150-400) K/uL MPV 9.80 (7.40-12.00) fL Neut % (Auto) 74.4 (48.0-80.0) % Lymph % (Auto) 11.8 L (16.0-40.0) % Humphreys % (Auto) 9.9 (0.0-15.0) % Eos % (Auto) 2.9 (0.0-7.0) % Baso % (Auto) 1.0 (0.0-1.5) % Neut # (Auto) 2.3 (1.4-5.7) K/uL Lymph # (Auto) 0.4 L (0.6-2.4) K/uL Humphreys # (Auto) 0.3 (0.0-0.8) K/uL Eos # (Auto) 0.1 (0.0-0.7) K/uL Baso # (Auto) 0.0 (0.0-0.1) K/uL Nucleated RBC % 0.0 /100WBC Nucleated RBCs # 0 K/uL INR Sodium 133 L (136-148) mmol/L Potassium 4.9 (3.5-5.1) mmol/L Chloride 99 (98-107) mmol/L Carbon Dioxide 24.7 (21.0-32.0) mmol/L BUN 36 H (7.0-18.0) mg/dL Creatinine 5.3 H (0.8-1.3) mg/dL Est Cr Clr Drug Dosing 16.49 Estimated GFR (MDRD) 11.4 ml/min Glucose 92 (74-106) mg/dL POC Glucose 164 H (60-110) mg/dL Calcium 8.0 L (8.5-10.1) mg/dL Phosphorus 5.0 H (2.6-4.7) mg/dL Magnesium 1.8 (1.8-2.4) mg/dL Total Bilirubin 1.6 H (0.2-1.0) mg/dL AST 21 (15-37) IU/L ALT 127 H (14-63) IU/L Alkaline Phosphatase 122 H (46-116) U/L Total Protein 6.3 L (6.4-8.2) g/dL Albumin 2.4 L (3.4-5.0) g/dL Globulin 3.9 (2.6-4.0) g/dL Albumin/Globulin Ratio 0.6 L (0.9-1.6) SARS-CoV-2 RNA ([facility]) (NEGATIVE) Result Diagrams: 07/17/20 05:33 07/17/20 05:33 Sepsis Event Note - Evaluation Sepsis Screening Result: No Definite Risk - Focused Exam Vital Signs: Vital Signs Temp Pulse Pulse Resp BP BP Pulse Ox 07/17/20 04:51 36.6 C 61 18 122/56 L 95 07/17/20 02:26 36.6 C 62 18 122/62 95 07/17/20 00:28 69 115/55 L 07/17/20 00:00 07/16/20 23:56 36.4 C 63 18 115/55 L 95 Pulse Ox 07/17/20 04:51 07/17/20 02:26 07/17/20 00:28 07/17/20 00:00 95 07/16/20 23:56 - Problem List & Annotations (1) Amputation toe SNOMED Code(s): 724866917 Code(s): S98.139A - COMPLETE TRAUMATIC AMPUTATION OF ONE UNSP LESSER TOE, INIT Status: Acute Current Visit: Yes (2) A-fib SNOMED Code(s): 21046934 Code(s): I48.91 - UNSPECIFIED ATRIAL FIBRILLATION Status: Acute Current Visit: Yes (3) Pacemaker SNOMED Code(s): 173177378 Code(s): Z95.0 - PRESENCE OF CARDIAC PACEMAKER Status: Acute Current Visit: Yes (4) VSD (ventricular septal defect) SNOMED Code(s): 58204958 Code(s): Q21.0 - VENTRICULAR SEPTAL DEFECT Status: Acute Current Visit: Yes (5) RLS (restless legs syndrome) SNOMED Code(s): 97846167 Code(s): G25.81 - RESTLESS LEGS SYNDROME Status: Acute Current Visit: Yes (6) CAD (coronary artery disease) SNOMED Code(s): 17085150 Code(s): I25.10 - ATHSCL HEART DISEASE OF [place] CORONARY ARTERY W/O ANG PCTRS Status: Chronic Current Visit: No (7) ESRD on hemodialysis SNOMED Code(s): 586455671 Code(s): N18.6 - END STAGE RENAL DISEASE; Z99.2 - DEPENDENCE ON RENAL DIALYSIS Status: Chronic Current Visit: No (8) Gastroparesis due to secondary diabetes SNOMED Code(s): 2802967, 101278789 Code(s): E13.43 - OTH DIABETES MELLITUS W DIABETIC AUTONOMIC (POLY)NEUROPATHY Status: Chronic Current Visit: No (9) HLD (hyperlipidemia) SNOMED Code(s): 71236765 Code(s): E78.5 - HYPERLIPIDEMIA, UNSPECIFIED Status: Chronic Current Visit: No (10) Diabetes mellitus SNOMED Code(s): 18436996 Code(s): E11.9 - TYPE 2 DIABETES MELLITUS WITHOUT COMPLICATIONS Status: Acute Current Visit: Yes - Problem List Review Problem List Initiated/Reviewed/Updated: Yes - My Orders Last 24 Hours: My Active Orders 07/16/20 Dinner ADA Diabetic [[place] Diet] [DIET] 07/16/20 18:06 Patient Status [ADT] Routine Antiembolic Devices [RC] PER UNIT ROUTINE EKG Documentation Completion [RC] STAT Oxygen Therapy [RC] PRN Up With Assistance [RC] ASDIRECTED VTE/DVT Education [RC] PER UNIT ROUTINE Vital Signs [RC] Q4H Ondansetron [Zofran] 4 mg IVPUSH Q4H PRN Sequential Compression Device [OM.PC] Per Unit Routine 07/16/20 18:23 Notify Provider Consults [RC] ASDIRECTED Consult to Physician [CONS] Urgent Code Status [Resuscitation Status] Routine 07/16/20 19:25 Blood Glucose Check, Bedside [RC] TIDAC Dextrose 50% in Water 50 ml IVPUSH ASDIRECTED PRN Glucagon,Human Recombinant [GlucaGen] 1 mg IM ASDIRECTED PRN 07/16/20 19:30 Pharmacy to Dose - Vancomycin 1 dose .XX ASDIRECTED Piperacillin/Tazobactam [Zosyn] 2.25 gm Sodium Chloride 0.9% [Normal Saline] 50 ml IV Q8H 07/16/20 19:33 Communication Order [RC] ROUTINE 07/16/20 19:44 Telemetry Monitoring [Cardiac Monitoring] [RC] Q8H 07/16/20 20:50 traMADol [Ultram] 50 mg PO BID PRN 07/16/20 21:00 Docusate Sodium [Colace] 100 mg PO BID PRN Furosemide [Lasix] 80 mg PO BIDDIURETIC Gabapentin [Neurontin] 200 mg PO BEDTIME Insulin Glarg,Human.Rec.Analog [LantUS Solostar] 50 units SUBCUT BEDTIME Zaleplon [Sonata] 10 mg PO BEDTIME amLODIPine [Norvasc] 10 mg PO BEDTIME atorvaSTATin [Lipitor] 40 mg PO BEDTIME carvediloL [Coreg] 25 mg PO BID rOPINIRole [Requip] 0.5 mg PO BEDTIME 07/16/20 22:00 hydrALAZINE [Apresoline] 25 mg PO TID 07/17/20 Breakfast NPO [Nothing Per Oral Diet] [DIET] 07/17/20 07:30 Pantoprazole [ProTONIX] 40 mg PO ACBREAKFAST 07/17/20 07:40 RED BLOOD CELLS LP [BBK] Routine TYPE AND SCREEN [BBK] Routine 07/17/20 08:18 Communication Order [RC] ROUTINE Transfuse Red Blood Cells [COMM] Urgent 07/17/20 09:00 Amiodarone [Cordarone] 100 mg PO DAILY Aspirin 81 mg PO DAILY Clopidogrel [Plavix] 75 mg PO DAILY Donepezil [Aricept] 10 mg PO DAILY FLUoxetine [PROzac] 40 mg PO DAILY Isosorbide Mononitrate [Imdur] 90 mg PO DAILY 07/17/20 22:30 VANCOMYCIN RANDOM [CHEM] Routine - Plan Plan:: Assessment and Plan: 1. Left foot toe amputation revision: -
--- NOTE | 2020-07-17 08:43 | PCM.PREANE ---
Preanesthetic Assessment - Anesthesia/Transfusion/Family Hx Anesthesia History: Prior Anesthesia Without Reaction Family History of Anesthesia Reaction: No Transfusion History: Prior Transfusion Without Reaction Intubation History: Unknown - Review of Systems General: Weakness Pulmonary: No Symptoms Cardiovascular: No Symptoms Gastrointestinal: No Symptoms Neurological: No Symptoms Other: Reports: None - Physical Assessment NPO Status Date: 07/16/20 NPO Status Time: 22:00 Vital Signs: Last Vital Signs Temp 97.8 F 07/17/20 08:00 Pulse 60 07/17/20 08:00 Resp 18 07/17/20 08:00 BP 115/60 07/17/20 08:00 Pulse Ox 95 07/17/20 08:00 Height: 5 ft 10.08 in Weight: 99 kg ASA Class: 4 Mental Status: Alert & Oriented x3 Airway Class: Mallampati = 2 Dentition: Reports: Missing Tooth/Teeth Thyro-Mental Finger Breadths: 3 Mouth Opening Finger Breadths: 3 ROM/Head Extension: Full Lungs: Clear to Auscultation, Normal Respiratory Effort, Decreased Breath Sounds Cardiovascular: Regular Rate, Regular Rhythm - Lab Values: Laboratory Last Values WBC 3.14 K/uL (4.0-11.0) L 07/17/20 05:33 RBC 2.22 M/uL (4.50-5.90) L 07/17/20 05:33 Hgb 6.7 g/dL (13.0-17.0) L 07/17/20 05:33 Hct 21.8 % (38.0-50.0) L 07/17/20 05:33 MCV 98.2 fL (80.0-98.0) H 07/17/20 05:33 MCH 30.2 pg (27.0-32.0) 07/17/20 05:33 MCHC 30.7 g/dL (31.0-37.0) L 07/17/20 05:33 RDW Std Deviation 60.2 fl (28.0-62.0) 07/17/20 05:33 RDW Coeff of Braulio 17 % (11.0-15.0) H 07/17/20 05:33 Plt Count 107 K/uL (150-400) L 07/17/20 05:33 MPV 9.80 fL (7.40-12.00) 07/17/20 05:33 Neut % (Auto) 74.4 % (48.0-80.0) 07/17/20 05:33 Lymph % (Auto) 11.8 % (16.0-40.0) L 07/17/20 05:33 [place] % (Auto) 9.9 % (0.0-15.0) 07/17/20 05:33 Eos % (Auto) 2.9 % (0.0-7.0) 07/17/20 05:33 Baso % (Auto) 1.0 % (0.0-1.5) 07/17/20 05:33 Neut # (Auto) 2.3 K/uL (1.4-5.7) 07/17/20 05:33 Lymph # (Auto) 0.4 K/uL (0.6-2.4) L 07/17/20 05:33 [place] # (Auto) 0.3 K/uL (0.0-0.8) 07/17/20 05:33 Eos # (Auto) 0.1 K/uL (0.0-0.7) 07/17/20 05:33 Baso # (Auto) 0.0 K/uL (0.0-0.1) 07/17/20 05:33 Nucleated RBC % 0.0 /100WBC 07/17/20 05:33 Nucleated RBCs # 0 K/uL 07/17/20 05:33 INR 1.62 07/16/20 18:15 Sodium 133 mmol/L (136-148) L 07/17/20 05:33 Potassium 4.9 mmol/L (3.5-5.1) 07/17/20 05:33 Chloride 99 mmol/L (98-107) 07/17/20 05:33 Carbon Dioxide 24.7 mmol/L (21.0-32.0) 07/17/20 05:33 BUN 36 mg/dL (7.0-18.0) H 07/17/20 05:33 Creatinine 5.3 mg/dL (0.8-1.3) H 07/17/20 05:33 Est Cr Clr Drug Dosing 16.49 mL/min 07/17/20 05:33 Estimated GFR (MDRD) 11.4 ml/min 07/17/20 05:33 Glucose 92 mg/dL (74-106) 07/17/20 05:33 POC Glucose 164 mg/dL (60-110) H 07/16/20 23:44 Calcium 8.0 mg/dL (8.5-10.1) L 07/17/20 05:33 Phosphorus 5.0 mg/dL (2.6-4.7) H 07/17/20 05:33 Magnesium 1.8 mg/dL (1.8-2.4) 07/17/20 05:33 Total Bilirubin 1.6 mg/dL (0.2-1.0) H 07/17/20 05:33 AST 21 IU/L (15-37) 07/17/20 05:33 ALT 127 IU/L (14-63) H 07/17/20 05:33 Alkaline Phosphatase 122 U/L (46-116) H 07/17/20 05:33 Total Protein 6.3 g/dL (6.4-8.2) L 07/17/20 05:33 Albumin 2.4 g/dL (3.4-5.0) L 07/17/20 05:33 Globulin 3.9 g/dL (2.6-4.0) 07/17/20 05:33 Albumin/Globulin Ratio 0.6 (0.9-1.6) L 07/17/20 05:33 SARS-CoV-2 RNA (MATEO) NEGATIVE (NEGATIVE) 07/16/20 17:05 Blood Type A NEGATIVE 07/17/20 07:40 Antibody Screen NEGATIVE 07/17/20 07:40 Crossmatch See Detail 07/17/20 07:40 - Allergies Allergies/Adverse Reactions: Allergies Allergy/AdvReac Type Severity Reaction Status Date / Time meperidine [From Demerol] Allergy Hypertensio Verified 07/16/20 19:40 n morphine Allergy Hypertensio Verified 07/16/20 19:40 n - Blood Blood Available: Yes Product(s) Available: PRBC - Anesthesia Plan Free Text/Narrative:: Consulted with the hospitalist team this morning and they will be transfusing 1 unit PRBC this AM. History review from my assessment and conversation with the patient: 04/2020 - Cardiac cath with 3 stent placement (Prox RCA, Mid RCA, Dist RCA), following 3rd stent placement pt states he experienced a brief cardiac arrest requiring emergency invasive pacing. New A-fib at that time as well. Permanent pacemaker was placed during that admission. 05/2020 - Pt was brought back for 4th cardiac stent placement "on the left side of my heart". 06/2020 - Pt sought treatment of broken/infected Lt big toe, transferred to [facility] for surgical/medical management. Pt presented yesterday to Dr Hester office for open wound. Direct admit from the clinic to the medical floor. On the patients arrival it was noted that the patient had fallen 3 times yesterday and had significant bruising to the Rt side of the patients face. Rt eye is currently swollen shut. Due to the patients significant medical history and recent cardiac stent placement; the patient will likely benefit from a tertiary center with emergent garden labourer and inpatient dialysis capabilities. This patient was discussed with Dr Alves who will contact Dr Hester. - Acknowledgements Pt an Appropriate Candidate for the Planned Anesthesia: No Alternatives and Risks of Anesthesia Discussed w Pt/Guardian: Yes Pt/Guardian Understands and Agrees with Anesthesia Plan: Yes PreAnesthesia Questionnaire HEENT History: Reports: None Cardiovascular History: Reports: CAD, Congenital Septal Defect, High Cholesterol, Hypertension, Pacemaker (Dual chamber), Prior Cardiac Arrest, PTCA, Other (See Below) Other Cardiovascular History: ventricular septal defect - since Respiratory History: Reports: Bronchitis, Recurrent, Pneumonia, Recurrent, Other (See Below) (Home O2 at night 2-3LPM due to hypoxia) Gastrointestinal History: Reports: GERD, Pancreatitis, Other (See Below) Genitourinary History: Reports: Renal Calculus, Other (See Below) Other Genitourinary History: end stage renal failure on HD Musculoskeletal History: Reports: Arthritis Neurological History: Reports: Migraines, Neuropathy, Diabetic, Other (See Below) Other Neuro History: mild cognitive impairment, vascular dementia, restless leg syndrome Psychiatric History: Reports: Anxiety, Depression Endocrine/Metabolic History: Reports: Diabetes, Type II Other Endocrine/Metabolic History: insulin dependent Hematologic History: Reports: Anemia, Anticoagulation Therapy, Blood Tr ansfusion(s) Immunologic History: Reports: None Oncologic (Cancer) History: Reports: None Dermatologic History: Reports: None - Infectious Disease History Infectious Disease History: Reports: Chicken Pox, Measles - Past Surgical History HEENT Surgical History: Reports: Adenoidectomy, Eye Surgery Cardiovascular Surgical History: Reports: Coronary Artery Stent (x4 total) GI Surgical History: Reports: Cholecystectomy, Colonoscopy, EGD - SUBSTANCE USE Tobacco Use Status *Q: Never Tobacco User Second Hand Smoke Exposure: No Recreational Drug Use History: No - HOME MEDS Home Medications: Home Meds Apixaban [Eliquis] 5 mg PO BID 07/02/20 [History] Aspirin 81 mg PO DAILY 07/02/20 [History] Clopidogrel [Plavix] 75 mg PO DAILY 07/02/20 [History] Donepezil HCl 10 mg PO DAILY 07/02/20 [History] FLUoxetine HCl [Fluoxetine HCl] 40 mg PO DAILY 07/02/20 [History] Furosemide [Lasix] 80 mg PO BID 07/02/20 [History] Gabapentin [Neurontin] 200 mg PO BEDTIME 07/02/20 [History] Isosorbide Mononitrate [Isosorbide Mononitrate ER] 60 mg PO DAILY 07/02/20 [History] Nitroglycerin [Nitrostat] 0.4 mg SL ASDIRECTED 07/02/20 [History] Pantoprazole [ProTONIX] 40 mg PO DAILY 07/02/20 [History] Sevelamer Carbonate [Renvela] 800 mg PO DAILY 07/02/20 [History] Valsartan 80 mg PO DAILY 07/02/20 [History] Zolpidem Tartrate 10 mg PO BEDTIME 07/02/20 [History] amLODIPine Besylate [Amlodipine Besylate] 10 mg PO BEDTIME 07/02/20 [History] atorvaSTATin [Lipitor] 40 mg PO BEDTIME 07/02/20 [History] carvediloL [Carvedilol] 25 mg PO BID 07/02/20 [History] hydrALAZINE [Apresoline] 25 mg PO TID 07/02/20 [History] rOPINIRole HCl [Requip] 0.5 mg PO BEDTIME 07/02/20 [History] traMADol HCl [Tramadol HCl] 50 mg PO BID 07/02/20 [History] - CURRENT (IN HOUSE) MEDS Current Meds: Current Medications Amiodarone HCl (Cordarone) 100 mg PO DAILY [facility] Amlodipine Besylate (Norvasc) 10 mg PO BEDTIME [facility] Last Admin: 07/17/20 00:34 Dose: Not Given Documented by: Aspirin (Aspirin) 81 mg PO DAILY [facility] Atorvastatin Calcium (Lipitor) 40 mg PO BEDTIME [facility] Last Admin: 07/17/20 00:34 Dose: Not Given Documented by: Carvedilol (Coreg) 25 mg PO BID [facility] Last Admin: 07/17/20 00:34 Dose: Not Given Documented by: Clopidogrel Bisulfate (Plavix) 75 mg PO DAILY [facility] Dextrose/Water (Dextrose 50% In Water) 50 ml IVPUSH ASDIRECTED PRN PRN Reason: Hypoglycemia Docusate Sodium (Colace) 100 mg PO BID PRN PRN Reason: Constipation Donepezil HCl (Aricept) 10 mg PO DAILY [facility] Fluoxetine HCl (Prozac) 40 mg PO DAILY [facility] Furosemide (Lasix) 80 mg PO BIDDIURETIC [facility] Last Admin: 07/17/20 00:33 Dose: Not Given Documented by: Gabapentin (Neurontin) 200 mg PO BEDTIME [facility] Last Admin: 07/17/20 00:34 Dose: Not Given Documented by: Glucagon (Glucagen) 1 mg IM ASDIRECTED PRN PRN Reason: Hypoglycemia Hydralazine HCl (Apresoline) 25 mg PO TID [facility] Last Admin: 07/17/20 07:10 Dose: Not Given Documented by: Piperacillin Sod/Tazobactam (Sod 2.25 gm/ Sodium Chloride) 50 mls @ 100 mls/hr IV Q8H [facility] Last Admin: 07/17/20 04:51 Dose: 100 mls/hr Documented by: Insulin Aspart (Novolog) 0 unit SUBCUT TIDAC [facility]; Protocol Last Admin: 07/17/20 07:52 Dose: Not Given Documented by: Insulin Glargine (Lantus Solostar) 50 units SUBCUT BEDTIME [facility] Last Admin: 07/16/20 22:21 Dose: 50 units Documented by: Isosorbide Mononitrate (Imdur) 90 mg PO DAILY [facility] Ondansetron HCl (Zofran) 4 mg IVPUSH Q4H PRN PRN Reason: Nausea Oxycodone/Acetaminophen (Percocet 325-5 Mg) 1 tab PO Q4H PRN PRN Reason: Pain (moderate 4-6) Last Admin: 07/17/20 07:11 Dose: 1 tab Documented by: Pantoprazole Sodium (Protonix) 40 mg PO ACBREAKFAST [facility] Ropinirole HCl (Requip) 0.5 mg PO BEDTIME [facility] Last Admin: 07/17/20 00:35 Dose: Not Given Documented by: Tramadol HCl (Ultram) 50 mg PO BID PRN PRN Reason: Pain Last Admin: 07/16/20 23:40 Dose: 50 mg Documented by: Vancomycin HCl (Pharmacy To Dose - Vancomycin) 1 dose .XX ASDIRECTED [facility] Zaleplon (Sonata) 10 mg PO BEDTIME [facility] Last Admin: 07/17/20 00:35 Dose: Not Given Documented by: Discontinued Medications Apixaban (Eliquis) 5 mg PO BID [facility] Last Admin: 07/17/20 00:33 Dose: Not Given Documented by: Atorvastatin Calcium (Lipitor) 40 mg PO ONETIME ONE Stop: 07/17/20 00:15 Last Admin: 07/17/20 00:27 Dose: 40 mg Documented by: Carvedilol (Coreg) 25 mg PO ONETIME ONE Stop: 07/17/20 00:13 Last Admin: 07/17/20 00:28 Dose: 25 mg Documented by: Gabapentin (Neurontin) 200 mg PO ONETIME ONE Stop: 07/17/20 00:16 Last Admin: 07/17/20 00:28 Dose: 200 mg Documented by: Vancomycin HCl 1.5 gm/ Premix 300 mls @ 200 mls/hr IV ONETIME ONE Stop: 07/17/20 00:29 Last Admin: 07/16/20 23:44 Dose: 200 mls/hr Documented by: Insulin Aspart (Novolog) 0 unit SUBCUT TIDAC [facility]; Protocol Insulin Aspart (Novolog) 8 unit SUBCUT ONETIME ONE Stop: 07/16/20 20:35 Last Admin: 07/16/20 20:50 Dose: 8 units Documented by: Ropinirole HCl (Requip) 0.5 mg PO BEDTIME ONE Stop: 07/17/20 00:17 Last Admin: 07/17/20 00:29 Dose: 0.5 mg Documented by: Zaleplon (Sonata) 10 mg PO ONETIME ONE Stop: 07/17/20 00:19 Last Admin: 07/17/20 00:27 Dose: 10 mg Documented by:
[2020-07-17] MEDS ORDERED: Clopidogrel 75 MG Tab PO SCH (09:00)
[2020-07-17] MEDS ORDERED: FLUoxetine 20 MG Cap PO SCH (09:00)
[2020-07-17] MEDS ORDERED: Donepezil 10 MG Tab PO SCH (09:00)
[2020-07-17] MEDS ORDERED: Aspirin 81 MG Tab.Chew PO SCH (09:00)
[2020-07-17] MEDS ORDERED: Isosorbide Mononitrate 30 MG Tab.ER PO SCH (09:00)
[2020-07-17] MEDS ORDERED: Amiodarone 200 MG Tab PO SCH (09:00)
== END 2020-07-17 18:15 ==
LOC: MW.MS 16:54
PROVIDERS: ADMIT Internal Medicine; ATTEND Internal Medicine
DX: T87.89 Other complications of amputation stump (principal); I13.2 Hypertensive heart and chronic kidney disease with heart failure and with stage 5 chronic kidney disease, or end stage renal disease; E11.22 Type 2 diabetes mellitus with diabetic chronic kidney disease; N18.6 End stage renal disease; D63.1 Anemia in chronic kidney disease; I25.10 Atherosclerotic heart disease of native coronary artery without angina pectoris; I48.91 Unspecified atrial fibrillation; G25.81 Restless legs syndrome; E11.43 Type 2 diabetes mellitus with diabetic autonomic (poly)neuropathy; K31.84 Gastroparesis; Q21.0 Ventricular septal defect; E11.40 Type 2 diabetes mellitus with diabetic neuropathy, unspecified; Z20.822 Contact with and (suspected) exposure to COVID-19; K85.90 Acute pancreatitis without necrosis or infection, unspecified; K21.9 Gastro-esophageal reflux disease without esophagitis; E78.5 Hyperlipidemia, unspecified; Z95.0 Presence of cardiac pacemaker; Z95.5 Presence of coronary angioplasty implant and graft; Z88.5 Allergy status to narcotic agent; Z79.82 Long term (current) use of aspirin; Z79.899 Other long term (current) drug therapy; Z90.49 Acquired absence of other specified parts of digestive tract; Z98.890 Other specified postprocedural states; Z79.01 Long term (current) use of anticoagulants; Z93.1 Gastrostomy status; Z79.02 Long term (current) use of antithrombotics/antiplatelets
CPT/HCPCS: 36415; 36430; 70450; 70486; 71045; 72125; 80053; 82962; 83735; 84100; 85014; 85018; 85025; 85610; 86850; 86900; 86901; 86920; 86921; 86922; 93005; 96365; 96367; 96376; A9270; G0378; G0379; J1815; J2543; J3370; P9016; U0002

== ENCOUNTER 2020-09-28 13:45 | Emergency (ER) | payer MEDICARE, BC ==
--- NOTE | 2020-09-28 13:58 | EDM.PDOC ---
ED HPI GENERAL MEDICAL PROBLEM - General Chief Complaint: General Stated Complaint: LETHARGIC Time Seen by Provider: 09/28/20 13:51 Source of Information: Reports: Patient History Limitations: Reports: No Limitations - History of Present Illness INITIAL COMMENTS - FREE TEXT/NARRATIVE: Patient is a 55-year-old man with a history of end-stage renal disease and diabetes who presents today for possible altered mental status. Patient and have a thought the patient seemed a little off and wanted him to be evaluated today. Patient on arrival is ANO x2 but is unclear what patient baseline is. Patient himself reports missing dialysis today because he just did not feel well but has no complaints of fever chills nausea vomiting or other concerning symptoms. Patient does have a looks to be a remove PEG tube that he says removed with a few days ago and no longer uses. - Related Data Allergies Allergy/AdvReac Type Severity Reaction Status Date / Time meperidine [From Demerol] Allergy Hypertensio Verified 09/28/20 13:50 n morphine Allergy Hypertensio Verified 09/28/20 13:50 n Home Meds: Home Meds Apixaban [Eliquis] 5 mg PO BID 07/02/20 [History] Aspirin 81 mg PO DAILY 07/02/20 [History] Clopidogrel [Plavix] 75 mg PO DAILY 07/02/20 [History] Donepezil HCl 10 mg PO DAILY 07/02/20 [History] FLUoxetine HCl [Fluoxetine HCl] 40 mg PO DAILY 07/02/20 [History] Furosemide [Lasix] 80 mg PO BID 07/02/20 [History] Gabapentin [Neurontin] 200 mg PO BEDTIME 07/02/20 [History] Isosorbide Mononitrate [Isosorbide Mononitrate ER] 60 mg PO DAILY 07/02/20 [History] Nitroglycerin [Nitrostat] 0.4 mg SL ASDIRECTED 07/02/20 [History] Pantoprazole [ProTONIX] 40 mg PO DAILY 07/02/20 [History] Sevelamer Carbonate [Renvela] 1,600 mg PO TID 07/02/20 [History] Valsartan 80 mg PO DAILY 07/02/20 [History] Zolpidem Tartrate 10 mg PO BEDTIME 07/02/20 [History] amLODIPine Besylate [Amlodipine Besylate] 10 mg PO BEDTIME 07/02/20 [History] atorvaSTATin [Lipitor] 40 mg PO BEDTIME 07/02/20 [History] carvediloL [Carvedilol] 25 mg PO BID 07/02/20 [History] hydrALAZINE [Apresoline] 25 mg PO TID 07/02/20 [History] rOPINIRole HCl [Requip] 0.5 mg PO BEDTIME 07/02/20 [History] traMADol HCl [Tramadol HCl] 50 mg PO BID PRN 07/02/20 [History] Amiodarone HCl 100 mg PO DAILY 09/28/20 [History] Biotin/FA/Vit C/Vit B Complex [Nephrocaps] 1 tab PO DAILY 09/28/20 [History] Cinacalcet [Sensipar] 30 mg PO BEDTIME 09/28/20 [History] Insulin Aspart [NovoLOG] 25 unit SUBCUT WITHMEALSANDBED 09/28/20 [History] Insulin Glargine,Hum.Rec.Anlog [Lantus Solostar] 50 unit SQ BEDTIME 09/28/20 [History] Ondansetron [Ondansetron ODT] 4 mg PO Q6H PRN 09/28/20 [History] Past Medical History HEENT History: Reports: None Cardiovascular History: Reports: CAD, Congenital Septal Defect, High Cholesterol, Hypertension, Pacemaker, Prior Cardiac Arrest, PTCA, Other (See Below) Other Cardiovascular History: ventricular septal defect - since Respiratory History: Reports: Bronchitis, Recurrent, Pneumonia, Recurrent, Other (See Below) Gastrointestinal History: Reports: GERD, Pancreatitis, Other (See Below) Genitourinary History: Reports: Renal Calculus, Other (See Below) Other Genitourinary History: end stage renal failure on HD Musculoskeletal History: Reports: Arthritis Neurological History: Reports: Migraines, Neuropathy, Diabetic, Other (See Below) Other Neuro History: mild cognitive impairment, vascular dementia, restless leg syndrome Psychiatric History: Reports: Anxiety, Depression Endocrine/Metabolic History: Reports: Diabetes, Type II Other Endocrine/Metabolic History: insulin dependent Hematologic History: Reports: Anemia, Anticoagulation Therapy, Blood Transfusion(s) Immunologic History: Reports: None Oncologic (Cancer) History: Reports: None Dermatologic History: Reports: None - Infectious Disease History Infectious Disease History: Reports: Chicken Pox, Measles - Past Surgical History HEENT Surgical History: Reports: Adenoidectomy, Eye Surgery Cardiovascular Surgical History: Reports: Coronary Artery Stent GI Surgical History: Reports: Cholecystectomy, Colonoscopy, EGD Social & Family History - Family History Family Medical History: No Pertinent Family History - Tobacco Use Tobacco Use Status *Q: Never Tobacco User - Caffeine Use Caffeine Use: Reports: None Caffeine Use Comment: Occasionally - Recreational Drug Use Recreational Drug Use: No - Living Situation & Occupation Living situation: Reports: Occupation: Disabled ED ROS GENERAL - Review of Systems Review Of Systems: Unable To Obtain Reason Not Obtained: AMS Respiratory: Reports: No Symptoms ED EXAM, GENERAL - Physical Exam Exam: See Below Exam Limited By: Altered Mental Status General Appearance: Alert, No Apparent Distress Eye Exam: Bilateral Eye: EOMI, PERRL Ears: Normal External Exam Head: Atraumatic, Normocephalic Neck: Normal Inspection, Supple Respiratory/Chest: No Respiratory Distress, Lungs Clear, Normal Breath Sounds Cardiovascular: Normal Peripheral Pulses, Regular Rate, Rhythm GI/Abdominal: Normal Bowel Sounds, Soft, Non-Tender, Other (open PEG tube site) Extremities: Normal Inspection Neurological: Alert, CN II-XII Intact. No: Normal Cognition #1 Interpretation EKG Date: 09/28/20 Time: 14:28 Rhythm: NSR Rate (Beats/Min): 80 ST-T: Normal Course - Vital Signs Last Recorded V/S: Last Vital Signs Temp 98.0 F 09/28/20 13:46 Pulse 79 09/28/20 15:15 Resp 17 09/28/20 15:15 BP 136/58 L 09/28/20 15:15 Pulse Ox 93 L 09/28/20 15:15 - Orders/Labs/Meds Orders: Active Orders 24 hr Category Date Time Status EKG 12 Lead [EKG Documentation Completion] [RC] STAT Care 09/28/20 14:15 Active CULTURE BLOOD [BC] Stat Lab 09/28/20 14:00 Received CULTURE BLOOD [BC] Stat Lab 09/28/20 15:11 Received DRUG SCREEN, URINE [URCHEM] Stat Lab 09/28/20 15:13 Ordered Blood Culture x2 Reflex Set [OM.PC] Stat Oth 09/28/20 13:58 Ordered Labs: Laboratory Tests 09/28/20 09/28/20 09/28/20 Range/Units 13:49 13:49 15:11 WBC 5.30 (4.0-11.0) K/uL RBC 3.30 L (4.50-5.90) M/uL Hgb 10.3 L (13.0-17.0) g/dL Hct 31.0 L (38.0-50.0) % MCV 93.9 (80.0-98.0) fL MCH 31.2 (27.0-32.0) pg MCHC 33.2 (31.0-37.0) g/dL RDW Std Deviation 57.2 (28.0-62.0) fl RDW Coeff of [place]ul[place] 17 H (11.0-15.0) % Plt Count 41 L (150-400) K/uL MPV 10.50 (7.40-12.00) fL Neut % (Auto) 83.6 H (48.0-80.0) % Lymph % (Auto) 7.0 L (16.0-40.0) % [place] % (Auto) 9.2 (0.0-15.0) % Eos % (Auto) 0.0 (0.0-7.0) % Baso % (Auto) 0.2 (0.0-1.5) % Neut # (Auto) 4.4 (1.4-5.7) K/uL Lymph # (Auto) 0.4 L (0.6-2.4) K/uL [place] # (Auto) 0.5 (0.0-0.8) K/uL Eos # (Auto) 0.0 (0.0-0.7) K/uL Baso # (Auto) 0.0 (0.0-0.1) K/uL Nucleated RBC % 0.0 /100WBC Nucleated RBCs # 0 K/uL APTT (18.6-31.3) SEC Lactate 1.8 (0.20-2.00) mmol/L Sodium 124 L (136-148) mmol/L Potassium 5.1 (3.5-5.1) mmol/L Chloride 87 L (98-107) mmol/L Carbon Dioxide 20.3 L (21.0-32.0) mmol/L BUN 70 H (7.0-18.0) mg/dL Creatinine 9.5 H (0.8-1.3) mg/dL Est Cr Clr Drug Dosing 8.31 mL/min Estimated GFR (MDRD) 5.8 ml/min Glucose 209 H (74-106) mg/dL Calcium 7.5 L (8.5-10.1) mg/dL Phosphorus 3.6 (2.6-4.7) mg/dL Magnesium 1.6 L (1.8-2.4) mg/dL Total Bilirubin 2.8 H (0.2-1.0) mg/dL AST 65 H (15-37) IU/L ALT 48 (14-63) IU/L Alkaline Phosphatase 83 (46-116) U/L Troponin I < 0.050 (0.000-0.056) ng/mL Total Protein 6.9 (6.4-8.2) g/dL Albumin 3.3 L (3.4-5.0) g/dL Globulin 3.6 (2.6-4.0) g/dL Albumin/Globulin Ratio 0.9 (0.9-1.6) Ethyl Alcohol < 3.0 mg/dL SARS-CoV-2 RNA ([facility]) (NEGATIVE) 09/28/20 09/28/20 Range/Units 15:11 15:30 WBC (4.0-11.0) K/uL RBC (4.50-5.90) M/uL Hgb (13.0-17.0) g/dL Hct (38.0-50.0) % MCV (80.0-98.0) fL MCH (27.0-32.0) pg MCHC (31.0-37.0) g/dL RDW Std Deviation (28.0-62.0) fl RDW Coeff of Braulio (11.0-15.0) % Plt Count (150-400) K/uL MPV (7.40-12.00) fL Neut % (Auto) (48.0-80.0) % Lymph % (Auto) (16.0-40.0) % [place] % (Auto) (0.0-15.0) % Eos % (Auto) (0.0-7.0) % Baso % (Auto) (0.0-1.5) % Neut # (Auto) (1.4-5.7) K/uL Lymph # (Auto) (0.6-2.4) K/uL [place] # (Auto) (0.0-0.8) K/uL Eos # (Auto) (0.0-0.7) K/uL Baso # (Auto) (0.0-0.1) K/uL Nucleated RBC % /100WBC Nucleated RBCs # K/uL APTT 36.5 H (18.6-31.3) SEC Lactate (0.20-2.00) mmol/L Sodium (136-148) mmol/L Potassium (3.5-5.1) mmol/L Chloride (98-107) mmol/L Carbon Dioxide (21.0-32.0) mmol/L BUN (7.0-18.0) mg/dL Creatinine (0.8-1.3) mg/dL Est Cr Clr Drug Dosing mL/min Estimated GFR (MDRD) ml/min Glucose (74-106) mg/dL Calcium (8.5-10.1) mg/dL Phosphorus (2.6-4.7) mg/dL Magnesium (1.8-2.4) mg/dL Total Bilirubin (0.2-1.0) mg/dL AST (15-37) IU/L ALT (14-63) IU/L Alkaline Phosphatase (46-116) U/L Troponin I (0.000-0.056) ng/mL Total Protein (6.4-8.2) g/dL Albumin (3.4-5.0) g/dL Globulin (2.6-4.0) g/dL Albumin/Globulin Ratio (0.9-1.6) Ethyl Alcohol mg/dL SARS-CoV-2 RNA ([facility]) NEGATIVE (NEGATIVE) - Re-Assessments/Exams Free Text/Narrative Re-Assessment/Exam: 09/28/20 17:28 Patient has been accepted to [facility] for dialysis. Patient will be transferred. Departure - Departure Time of Disposition: 17:28 Disposition: DC/Tfer to Acute Hospital 02 Condition: Good Clinical Impression: Hyponatremia - Discharge Information *PRESCRIPTION DRUG MONITORING PROGRAM REVIEWED*: Not Applicable *COPY OF PRESCRIPTION DRUG MONITORING REPORT IN PATIENT MARQUES: Not Applicable Forms: ED Department Discharge Critical Care Note - Critical Care Note Total Time (mins): 45 Comments: Critical Care Procedure Note Authorized and Performed by: Dr. Youngblood Total critical care time: Approximately Due to a high probability of clinically significant, life threatening deterioration, the patient required my highest level of preparedness to intervene emergently and I personally spent this critical care time directly and personally managing the patient. This critical care time included obtaining a history; examining the patient; pulse oximetry; ordering and review of studies; arranging urgent treatment with development of a management plan; evaluation of patient's response to treatment; frequent reassessment; and, discussions with other providers. This critical care time was performed to assess and manage the high probability of imminent, life-threatening deterioration that could result in multi-organ failure. It was exclusive of separately billable procedures and treating other patients and teaching time. Sepsis Event Note (ED) - Evaluation Sepsis Screening Result: No Definite Risk - Focused Exam Vital Signs: Vital Signs Temp Pulse Resp BP Pulse Ox 09/28/20 15:15 79 17 136/58 L 93 L 09/28/20 14:45 80 17 148/60 H 94 L 09/28/20 13:46 98.0 F 80 18 140/60 - My Orders Last 24 Hours: My Active Orders 09/28/20 13:58 Blood Culture x2 Reflex Set [OM.PC] Stat 09/28/20 14:00 CULTURE BLOOD [BC] Stat 09/28/20 14:15 EKG 12 Lead [EKG Documentation Completion] [RC] STAT 09/28/20 15:11 CULTURE BLOOD [BC] Stat 09/28/20 15:13 DRUG SCREEN, URINE [URCHEM] Stat - Assessment/Plan Last 24 Hours: My Active Orders 09/28/20 13:58 Blood Culture x2 Reflex Set [OM.PC] Stat 09/28/20 14:00 CULTURE BLOOD [BC] Stat 09/28/20 14:15 EKG 12 Lead [EKG Documentation Completion] [RC] STAT 09/28/20 15:11 CULTURE BLOOD [BC] Stat 09/28/20 15:13 DRUG SCREEN, URINE [URCHEM] Stat Plan: Patient is a 55-year-old male who presents today for possible altered mental status. Unclear cause of this. Patient did miss dialysis. Patient also has a PEG tube site that is open that he states the tube was removed. This could be the source of infection. Will obtain labs blood cultures and reassess patient.
[2020-09-28 14:39] LABS: BLOOD UREA NITROGEN,BUN 70 mg/dL (7.0-18.0); CARBON DIOXIDE,CO2 20.3 mmol/L (21.0-32.0); CHLORIDE,CL 87 mmol/L (98-107); GLUCOSE RANDOM 209 mg/dL (74-106); POTASSIUM,K 5.1 mmol/L (3.5-5.1); SODIUM,NA 124 mmol/L (136-148)
--- NOTE | 2020-09-28 15:06 | CT ---
INDICATION: Missed dialysis. Poor historian. TECHNIQUE: Scanning of the head was performed without IV contrast material. Coronal and sagittal reconstructions were obtained. COMPARISON: Head CT of 07/16/2020. FINDINGS: No acute hemorrhage, parenchymal attenuation abnormality, or mass effect is demonstrated. Differentiation between the adams matter and white matter is preserved. The ventricles are normal but the fissures and sulci are relatively prominent for the patient`s age. No calvarial abnormality is evident. The visualized paranasal and mastoid sinuses are clear. IMPRESSION: 1. No acute abnormality. 2. Prominent fissures and sulci for patient`s age due to cortical volume loss. Please note that all CT scans at this facility use dose modulation, iterative reconstruction, and/or weight-based dosing when appropriate to reduce radiation dose to as low as reasonably achievable. Dictated by Mich Ramirez MD @ 09/28/2020 3:05:[address] Mich Ramirez @ Sep 28 2020 3:05PM
--- NOTE | 2020-09-28 15:10 | CR ---
INDICATION: Lethargic. TECHNIQUE: Upright portable AP image of the chest. COMPARISON: 07/16/2020. FINDINGS: Lungs low in volume, clear. No pleural effusion. Mild to moderate cardiomegaly. Cardiac pacer. Venous congestion. No significant bony abnormality. IMPRESSION: 1. Stable mild to moderate cardiomegaly, cardiac pacer and venous congestion. No obvious pulmonary edema. 2. Lungs low in volume, clear. Dictated by Mich Ramirez MD @ 09/28/2020 3:09:[address] Mich Ramirez @ Sep 28 2020 3:09PM
== END 2020-09-28 19:23 ==
LOC: MW.ED 13:45
DX: E87.1 Hypo-osmolality and hyponatremia (principal); E11.22 Type 2 diabetes mellitus with diabetic chronic kidney disease; N18.6 End stage renal disease; E78.00 Pure hypercholesterolemia, unspecified; I25.10 Atherosclerotic heart disease of native coronary artery without angina pectoris; I12.0 Hypertensive chronic kidney disease with stage 5 chronic kidney disease or end stage renal disease; E11.40 Type 2 diabetes mellitus with diabetic neuropathy, unspecified; F01.50 Vascular dementia, unspecified severity, without behavioral disturbance, psychotic disturbance, mood disturbance, and anxiety; M19.90 Unspecified osteoarthritis, unspecified site; Z79.82 Long term (current) use of aspirin; Z20.822 Contact with and (suspected) exposure to COVID-19; Z88.5 Allergy status to narcotic agent
CPT/HCPCS: 36415; 70450; 71045; 80053; 80307; 83605; 83735; 84100; 84484; 85025; 85730; 87040; 87077; 87186; 93005; 99291; U0002; 93010; 99284